=== PATIENT | male | born 1985 | race Asian ===

== ENCOUNTER 2018-05-29 00:23 | Inpatient (IN) | payer MEDICAID ==
[2018-05-29 01:09] LABS: ADD MAN DIFF? NO
[2018-05-29] MEDS: SODIUM CHLORIDE 0.9% 1L BAG IV* (01:10)
[2018-05-29 01:15] LABS: WHITE BLOOD COUNT 13.3 10^3/ul (4.8-10.8)
[2018-05-29 01:15] LABS: BASOPHIL # 0.1 10^3/ul (0.0-0.1); BASOPHILS % 0.4 % (0.0-2.0); EOSINOPHILS # 0.3 10^3/ul (0.0-0.5); EOSINOPHILS % 1.9 % (0.0-7.0); HEMATOCRIT 46.7 % (42.0-52.0); HEMOGLOBIN 13.8 g/dl (14.0-18.0); LYMPHOCYTES # 2.7 10^3/ul (0.8-2.9); MEAN CORPUSCULAR HEMOGLOBIN 25.7 pg (29.0-33.0); MEAN CORPUSCULAR HGB CONC 29.6 g/dl (32.0-37.0); MEAN PLATELET VOLUME 8.7 fl (7.4-10.4); MONOCYTES % 7.7 % (0.0-11.0); NEUTROPHIL # 9.2 10^3/ul (1.6-7.5); NEUTROPHILS % 68.7 % (39.0-77.0); NUCLEATED RED BLOOD CELLS% 0.2 /100WBC (0.0-0.0); PLATELET COUNT 271 10^3/UL (140-415); RED BLOOD COUNT 5.37 10^6/ul (4.70-6.10); RED CELL DISTRIBUTION WIDTH 14.8 % (11.5-14.5)
[2018-05-29 01:42] LABS: INR 0.94; PROTIME 12.7 Sec (11.9-14.9)
[2018-05-29 01:43] LABS: PARTIAL THROMBOPLASTIN TIME 37.8 Sec (25.0-35.0)
[2018-05-29 01:44] LABS: LACTIC ACID 1.1 mmol/L (0.5-2.0)
[2018-05-29 01:45] LABS: ALANINE AMINOTRANSFERASE 25 IU/L (13-69); ALBUMIN/GLOBULIN RATIO 1.02; ALKALINE PHOSPHATASE 121 IU/L (42-121); ANION GAP 14 (8-16); ASPARTATE AMINO TRANSFERASE 27 IU/L (15-46); BILIRUBIN,INDIRECT 0.3 mg/dl (0-1.1); BILIRUBIN,TOTAL 0.3 mg/dl (0.2-1.3); BLOOD UREA NITROGEN 15 mg/dl (7-20); CALCIUM 8.6 mg/dl (8.4-10.2); CARBON DIOXIDE 34 mmol/L (21-31); CHLORIDE 98 mmol/L (97-110); GLUCOSE 124 mg/dl (70-220); POTASSIUM 4.1 mmol/L (3.5-5.1); SODIUM 142 mmol/L (135-144); TOTAL PROTEIN 7.9 g/dl (6.1-8.1)
[2018-05-29 01:56] LABS: TROPONIN-I < 0.010 ng/ml (0.000-0.120)
[2018-05-29 03:08] LABS: LACTIC ACID 0.7 mmol/L (0.5-2.0)
[2018-05-29] MEDS: PIPER-TAZO 3.375 GM IV (PMX) 100 ML IVPB (03:43)
[2018-05-29] MEDS: ONDANSETRON 4 MG INJ IV (04:43)
[2018-05-29] MEDS: morphine 4 MG/ML VIAL IV (04:43)
[2018-05-29 06:14] LABS: LACTIC ACID 0.6 mmol/L (0.5-2.0)
[2018-05-29] MEDS ORDERED: NACL 0.9% 3 ML SYG IV (07:00)
[2018-05-29] MEDS ORDERED: ACETAMINOPHEN 325 MG TAB PO (07:00)
[2018-05-29] MEDS ORDERED: ONDANSETRON 4 MG INJ IV (07:00)
[2018-05-29] MEDS ORDERED: VANCOMYCIN IV PER PHARMACY XX (07:00)
[2018-05-29] MEDS: ENOXAPARIN 40 MG/0.4 ML SYG SC (08:20)
[2018-05-29] MEDS: CEFEPIME 1GM/50 ML (PMX) 50 ML IVPB (08:20)
[2018-05-29] MEDS: VANCOMYCIN 2 GM in SOD CHLORIDE 0.9% 500 ML IVPB ×2 (09:10→23:33)
[2018-05-29] MEDS: VANCOMYCIN 1.5 GM in SOD CHLORIDE 0.9% 250 ML IVPB (14:06)
[2018-05-29 16:34] LABS: AADO2 Arterial 31.9 mmHg (7.0-24.0); Arterial Base Excess 0.6 mmol/L (-3.0-3); Arterial Blood Gas Oxygen Sat 56.9 mmHG (95.0-98.0); Arterial COHb 3.1 % (0.0-3.0); Arterial HCO3 30.2 mmol/L (22.0-26.0); Arterial MetHb 0.2 % (0.0-1.5); Arterial Total Hemglobin 14.5 g/dl (12.0-18.0); Arterial pCO2 72.2 mmhg (35-45); MODE ROOM AIR; Site Right Radial
[2018-05-29] MEDS ORDERED: CEFTRIAXONE 2 GM/50 ML (PMX) 50 ML IVPB (21:00)
[2018-05-29] MEDS: CEFTRIAXONE 2 GM/50 ML (PMX) 50 ML IVPB (22:16)
[2018-05-30 05:49] LABS: ADD MAN DIFF? NO
[2018-05-30 05:56] LABS: WHITE BLOOD COUNT 13.8 10^3/ul (4.8-10.8)
[2018-05-30 05:56] LABS: ABNORMAL IP MESSAGE 1; BASOPHIL # 0.1 10^3/ul (0.0-0.1); BASOPHILS % 0.4 % (0.0-2.0); EOSINOPHILS # 0.1 10^3/ul (0.0-0.5); EOSINOPHILS % 0.4 % (0.0-7.0); HEMATOCRIT 46.2 % (42.0-52.0); HEMOGLOBIN 13.1 g/dl (14.0-18.0); LYMPHOCYTES # 1.6 10^3/ul (0.8-2.9); LYMPHOCYTES % 11.6 % (15.0-51.0); MEAN CORPUSCULAR HEMOGLOBIN 25.8 pg (29.0-33.0); MEAN CORPUSCULAR HGB CONC 28.4 g/dl (32.0-37.0); MEAN CORPUSCULAR VOLUME 91.1 fl (82.0-101.0); MEAN PLATELET VOLUME 8.7 fl (7.4-10.4); MONOCYTE # 1.1 10^3/ul (0.3-0.9); MONOCYTES % 7.6 % (0.0-11.0); NEUTROPHIL # 10.8 10^3/ul (1.6-7.5); NEUTROPHILS % 78.3 % (39.0-77.0); NUCLEATED RED BLOOD CELLS% 0.2 /100WBC (0.0-0.0); PLATELET COUNT 262 10^3/UL (140-415); POSITIVE DIFF @See below; RED BLOOD COUNT 5.07 10^6/ul (4.70-6.10); RED CELL DISTRIBUTION WIDTH 14.5 % (11.5-14.5)
[2018-05-30 06:57] LABS: ALANINE AMINOTRANSFERASE 19 IU/L (13-69); ALBUMIN 3.6 g/dl (3.3-4.9); ALBUMIN/GLOBULIN RATIO 0.94; ALKALINE PHOSPHATASE 105 IU/L (42-121); ANION GAP 11 (8-16); ASPARTATE AMINO TRANSFERASE 20 IU/L (15-46); BILIRUBIN,INDIRECT 0.2 mg/dl (0-1.1); BILIRUBIN,TOTAL 0.2 mg/dl (0.2-1.3); BLOOD UREA NITROGEN 8 mg/dl (7-20); CALCIUM 8.1 mg/dl (8.4-10.2); CARBON DIOXIDE 34 mmol/L (21-31); CHLORIDE 101 mmol/L (97-110); CREATININE 0.55 mg/dl (0.61-1.24); GLUCOSE 113 mg/dl (70-220); MAGNESIUM 2.1 mg/dl (1.7-2.5); PHOSPHORUS 3.4 mg/dl (2.5-4.9); POTASSIUM 4.7 mmol/L (3.5-5.1); SODIUM 141 mmol/L (135-144); TOTAL PROTEIN 7.4 g/dl (6.1-8.1)
[2018-05-30 07:56] LABS: AADO2 Arterial 77.3 mmHg (7.0-24.0); Allen Test ACCEPTAB; Arterial Base Excess 7.4 mmol/L (-3.0-3); Arterial COHb 2.1 % (0.0-3.0); Arterial Fraction of Oxyhgb 87.8 % (93.0-99.0); Arterial HCO3 39.5 mmol/L (22.0-26.0); Arterial MetHb 0.3 % (0.0-1.5); Arterial Total Hemglobin 14.2 g/dl (12.0-18.0); MODE NASAL CANNULA; Site Right Radial
[2018-05-30] MEDS: ENOXAPARIN 40 MG/0.4 ML SYG SC (08:53)
[2018-05-30] MEDS: VANCOMYCIN 2 GM in SOD CHLORIDE 0.9% 500 ML IVPB ×2 (10:09→21:22)
[2018-05-30 12:37] LABS: AADO2 Arterial 110.7 mmHg (7.0-24.0); Allen Test ACCEPTAB; Arterial Base Excess 9.7 mmol/L (-3.0-3); Arterial Blood Gas Oxygen Sat 98.3 mmHG (95.0-98.0); Arterial COHb 1.8 % (0.0-3.0); Arterial Fraction of Oxyhgb 96.2 % (93.0-99.0); Arterial HCO3 41.5 mmol/L (22.0-26.0); Arterial MetHb 0.3 % (0.0-1.5); Arterial pCO2 100.2 mmhg (35-45); Blood Gas IEPAP 15/5; Blood Gas PS 10; MODE MASK - BIPAP; Site Right Radial
[2018-05-30 15:44] LABS: AADO2 Arterial 132.2 mmHg (7.0-24.0); Allen Test ACCEPTAB; Arterial Blood Gas Oxygen Sat 97.3 mmHG (95.0-98.0); Arterial COHb 1.8 % (0.0-3.0); Arterial Fraction of Oxyhgb 95.3 % (93.0-99.0); Arterial HCO3 40.3 mmol/L (22.0-26.0); Arterial MetHb 0.3 % (0.0-1.5); Arterial Total Hemglobin 14.3 g/dl (12.0-18.0); Arterial pCO2 104.4 mmhg (35-45); Blood Gas IEPAP 20/8; Blood Gas PS 12; MODE MASK - BIPAP; Site Left Radial
[2018-05-30 18:21] LABS: AADO2 Arterial 88.4 mmHg (7.0-24.0); Allen Test ACCEPTAB; Arterial Base Excess -2.3 mmol/L (-3.0-3); Arterial Blood Gas Oxygen Sat 94.1 mmHG (95.0-98.0); Arterial COHb 1.8 % (0.0-3.0); Arterial Fraction of Oxyhgb 92.2 % (93.0-99.0); Arterial HCO3 23.9 mmol/L (22.0-26.0); Arterial MetHb 0.2 % (0.0-1.5); Arterial pCO2 46.4 mmhg (35-45); Blood Gas IEPAP 24/8; Blood Gas PS 16; MODE MASK - BIPAP; Site Right Radial
[2018-05-30 20:58] LABS: VANCOMYCIN,TROUGH 12.3 ug/ml (10.0-20.0)
[2018-05-30] MEDS: CEFTRIAXONE 2 GM/50 ML (PMX) 50 ML IVPB (22:44)
[2018-05-31] MEDS: ACETAMINOPHEN 325 MG TAB PO (01:01)
[2018-05-31 05:24] LABS: AADO2 Arterial 61.6 mmHg (7.0-24.0); Allen Test ACCEPTAB; Arterial Base Excess 10.4 mmol/L (-3.0-3); Arterial Blood Gas Oxygen Sat 93.3 mmHG (95.0-98.0); Arterial COHb 1.8 % (0.0-3.0); Arterial Fraction of Oxyhgb 91.3 % (93.0-99.0); Arterial MetHb 0.3 % (0.0-1.5); Arterial Total Hemglobin 13.7 g/dl (12.0-18.0); Arterial pCO2 71.9 mmhg (35-45); Blood Gas IEPAP 22/8; MODE MASK - BIPAP; Site Left Radial
[2018-05-31 05:39] LABS: ADD MAN DIFF? NO
[2018-05-31 05:41] LABS: ABNORMAL IP MESSAGE 1; BASOPHILS % 0.2 % (0.0-2.0); EOSINOPHILS # 0.1 10^3/ul (0.0-0.5); EOSINOPHILS % 0.7 % (0.0-7.0); HEMATOCRIT 42.6 % (42.0-52.0); HEMOGLOBIN 12.2 g/dl (14.0-18.0); LYMPHOCYTES # 1.8 10^3/ul (0.8-2.9); LYMPHOCYTES % 11.7 % (15.0-51.0); MEAN CORPUSCULAR HEMOGLOBIN 25.3 pg (29.0-33.0); MEAN CORPUSCULAR HGB CONC 28.6 g/dl (32.0-37.0); MEAN CORPUSCULAR VOLUME 88.2 fl (82.0-101.0); MEAN PLATELET VOLUME 8.9 fl (7.4-10.4); MONOCYTE # 1.4 10^3/ul (0.3-0.9); MONOCYTES % 8.7 % (0.0-11.0); NEUTROPHIL # 12.2 10^3/ul (1.6-7.5); NEUTROPHILS % 78.2 % (39.0-77.0); PLATELET COUNT 227 10^3/UL (140-415); POSITIVE DIFF @See below; RED BLOOD COUNT 4.83 10^6/ul (4.70-6.10); RED CELL DISTRIBUTION WIDTH 14.5 % (11.5-14.5)
[2018-05-31 05:41] LABS: WHITE BLOOD COUNT 15.6 10^3/ul (4.8-10.8)
[2018-05-31 06:19] LABS: ANION GAP 7 (8-16); BLOOD UREA NITROGEN 10 mg/dl (7-20); CALCIUM 8.4 mg/dl (8.4-10.2); CARBON DIOXIDE 39 mmol/L (21-31); CHLORIDE 98 mmol/L (97-110); CREATININE 0.56 mg/dl (0.61-1.24); GLUCOSE 96 mg/dl (70-220); MAGNESIUM 1.9 mg/dl (1.7-2.5); PHOSPHORUS 2.3 mg/dl (2.5-4.9); SODIUM 140 mmol/L (135-144)
[2018-05-31] MEDS ORDERED: POTASSIUM PHOSPHATE 30 MM in SOD CHLORIDE 0.9% 250 ML IVPB (08:30)
[2018-05-31] MEDS ORDERED: NEUTRA-PHOS 250 MG PACKET PO ×2 (09:00)
[2018-05-31] MEDS: TRIMETHOPRIM/SULFAMETHOX (DS) TAB PO (10:41)
[2018-05-31] MEDS: NEUTRA-PHOS 250 MG PACKET PO ×3 (10:41→18:05)
[2018-05-31] MEDS: ENOXAPARIN 40 MG/0.4 ML SYG SC (10:52)
[2018-06-01 05:08] LABS: ADD MAN DIFF? NO
[2018-06-01 05:13] LABS: WHITE BLOOD COUNT 15.2 10^3/ul (4.8-10.8)
[2018-06-01 05:13] LABS: BASOPHIL # 0.1 10^3/ul (0.0-0.1); BASOPHILS % 0.4 % (0.0-2.0); EOSINOPHILS # 0.2 10^3/ul (0.0-0.5); EOSINOPHILS % 1.5 % (0.0-7.0); HEMATOCRIT 43.4 % (42.0-52.0); HEMOGLOBIN 12.8 g/dl (14.0-18.0); LYMPHOCYTES # 1.6 10^3/ul (0.8-2.9); LYMPHOCYTES % 10.5 % (15.0-51.0); MEAN CORPUSCULAR HEMOGLOBIN 25.4 pg (29.0-33.0); MEAN CORPUSCULAR HGB CONC 29.5 g/dl (32.0-37.0); MEAN CORPUSCULAR VOLUME 86.3 fl (82.0-101.0); MEAN PLATELET VOLUME 8.6 fl (7.4-10.4); MONOCYTES % 6.3 % (0.0-11.0); NEUTROPHIL # 12.3 10^3/ul (1.6-7.5); NEUTROPHILS % 80.4 % (39.0-77.0); PLATELET COUNT 219 10^3/UL (140-415); RED BLOOD COUNT 5.03 10^6/ul (4.70-6.10); RED CELL DISTRIBUTION WIDTH 14.6 % (11.5-14.5)
[2018-06-01 05:22] LABS: AADO2 Arterial 63.1 mmHg (7.0-24.0); Allen Test ACCEPTAB; Arterial Blood Gas Oxygen Sat 94.4 mmHG (95.0-98.0); Arterial COHb 1.5 % (0.0-3.0); Arterial Fraction of Oxyhgb 92.7 % (93.0-99.0); Arterial HCO3 39.8 mmol/L (22.0-26.0); Arterial MetHb 0.3 % (0.0-1.5); Arterial pCO2 66.1 mmhg (35-45); MODE NASAL CANNULA; Site Left Radial
[2018-06-01 05:40] LABS: ANION GAP 13 (8-16); BLOOD UREA NITROGEN 8 mg/dl (7-20); CALCIUM 8.5 mg/dl (8.4-10.2); CARBON DIOXIDE 35 mmol/L (21-31); CHLORIDE 97 mmol/L (97-110); CREATININE 0.58 mg/dl (0.61-1.24); GLUCOSE 99 mg/dl (70-220); POTASSIUM 3.7 mmol/L (3.5-5.1); SODIUM 141 mmol/L (135-144)
[2018-06-01 05:42] LABS: PHOSPHORUS 3.2 mg/dl (2.5-4.9)
[2018-06-01 05:42] LABS: MAGNESIUM 1.8 mg/dl (1.7-2.5)
[2018-06-01] MEDS: PANTOPRAZOLE 40 MG INJ IV (06:04)
[2018-06-01] MEDS: ENOXAPARIN 40 MG/0.4 ML SYG SC (09:48)
[2018-06-01] MEDS ORDERED: IBUPROFEN 400 MG TAB PO (14:30)
[2018-06-02] MEDS: PANTOPRAZOLE 40 MG INJ IV (06:23)
[2018-06-02] MEDS: ENOXAPARIN 40 MG/0.4 ML SYG SC (08:26)
[2018-06-02 11:07] LABS: AADO2 Arterial 39.1 mmHg (7.0-24.0); Allen Test ACCEPTAB; Arterial Base Excess 8.5 mmol/L (-3.0-3); Arterial Blood Gas Oxygen Sat 90.5 mmHG (95.0-98.0); Arterial COHb 1.6 % (0.0-3.0); Arterial Fraction of Oxyhgb 88.9 % (93.0-99.0); Arterial HCO3 35.6 mmol/L (22.0-26.0); Arterial MetHb 0.2 % (0.0-1.5); Arterial Total Hemglobin 14.4 g/dl (12.0-18.0); Arterial pCO2 59.4 mmhg (35-45); MODE NASAL CANNULA; Site Right Radial
[2018-06-03 06:12] LABS: ADD MAN DIFF? NO
[2018-06-03 06:23] LABS: BASOPHIL # 0.1 10^3/ul (0.0-0.1); BASOPHILS % 0.4 % (0.0-2.0); EOSINOPHILS # 0.3 10^3/ul (0.0-0.5); EOSINOPHILS % 2.2 % (0.0-7.0); HEMATOCRIT 46.7 % (42.0-52.0); HEMOGLOBIN 13.7 g/dl (14.0-18.0); LYMPHOCYTES % 17.5 % (15.0-51.0); MEAN CORPUSCULAR HEMOGLOBIN 25.4 pg (29.0-33.0); MEAN CORPUSCULAR HGB CONC 29.3 g/dl (32.0-37.0); MEAN CORPUSCULAR VOLUME 86.6 fl (82.0-101.0); MEAN PLATELET VOLUME 8.9 fl (7.4-10.4); MONOCYTE # 0.8 10^3/ul (0.3-0.9); MONOCYTES % 7.3 % (0.0-11.0); NEUTROPHIL # 8.3 10^3/ul (1.6-7.5); NEUTROPHILS % 71.7 % (39.0-77.0); PLATELET COUNT 256 10^3/UL (140-415); RED BLOOD COUNT 5.39 10^6/ul (4.70-6.10); RED CELL DISTRIBUTION WIDTH 14.8 % (11.5-14.5)
[2018-06-03 06:23] LABS: WHITE BLOOD COUNT 11.5 10^3/ul (4.8-10.8)
[2018-06-03 06:34] LABS: ALBUMIN 3.7 g/dl (3.3-4.9); ANION GAP 14 (8-16); BLOOD UREA NITROGEN 12 mg/dl (7-20); CALCIUM 8.8 mg/dl (8.4-10.2); CARBON DIOXIDE 35 mmol/L (21-31); CHLORIDE 97 mmol/L (97-110); CREATININE 0.66 mg/dl (0.61-1.24); GLUCOSE 101 mg/dl (70-220); PHOSPHORUS 4.8 mg/dl (2.5-4.9); POTASSIUM 3.9 mmol/L (3.5-5.1); SODIUM 142 mmol/L (135-144)
[2018-06-03] MEDS: PANTOPRAZOLE 40 MG INJ IV (06:57)
[2018-06-03] MEDS: ENOXAPARIN 40 MG/0.4 ML SYG SC (09:12)
== END 2018-06-03 12:48 | disposition home or self-care (01) | DRG 602 ==
LOC: 6WM 06-01 12:47 → E/R 00:23 → 6WM 06-01 16:29 → REC 05-30 13:36 → 6WM 05-30 14:30 → ICU 05-30 15:42 → MS3 03:26 → 6WM 18:20
PROVIDERS: Internal Medicine
PROC: 5A09357 Assistance with Respiratory Ventilation, Less than 24 Consecutive Hours, Continuous Positive Airway Pressure (ICD-10-PCS; principal; 2018-05-30)
DX: L03.115 Cellulitis of right lower limb (principal); J96.20 Acute and chronic respiratory failure, unspecified whether with hypoxia or hypercapnia; E66.2 Morbid (severe) obesity with alveolar hypoventilation; Z68.43 Body mass index [BMI] 50.0-59.9, adult; E87.2 Acidosis; E87.4 Mixed disorder of acid-base balance; G47.33 Obstructive sleep apnea (adult) (pediatric); Z72.0 Tobacco use; I80.8 Phlebitis and thrombophlebitis of other sites
CPT/HCPCS: 36415; 36600; 71045; 80048; 80053; 80069; 80202; 82803; 83605; 83735; 84100; 84484; 85025; 85610; 85730; 87040; 93005; 94002; 94660; 94770; 99217; 99285-25; G0378

== ENCOUNTER 2018-08-11 23:58 | Emergency (ER) | payer SELFPAY, MEDICAID ==
[2018-08-12] MEDS: SODIUM CHLORIDE 0.9% 1L BAG IV* (01:43)
== END 2018-08-12 01:41 | disposition left against medical advice (07) ==
LOC: E/R 23:58
DX: J96.00 Acute respiratory failure, unspecified whether with hypoxia or hypercapnia (principal); L03.116 Cellulitis of left lower limb; F17.210 Nicotine dependence, cigarettes, uncomplicated; E66.9 Obesity, unspecified; M79.605 Pain in left leg; Z68.44 Body mass index [BMI] 60.0-69.9, adult
CPT/HCPCS: 99283; 99283-25

== ENCOUNTER 2018-10-08 00:26 | Inpatient (IN) | payer MEDICAID ==
[2018-10-08] MEDS: CLINDAMYCIN 900 MG/D5W (PMX) 50 ML IVPB (02:27)
[2018-10-08 02:29] LABS: ADD MAN DIFF? NO
[2018-10-08 02:31] LABS: WHITE BLOOD COUNT 9.9 10^3/ul (4.8-10.8)
[2018-10-08 02:31] LABS: ABNORMAL IP MESSAGE 1; BASOPHIL # 0.1 10^3/ul (0.0-0.1); BASOPHILS % 0.5 % (0.0-2.0); EOSINOPHILS # 0.3 10^3/ul (0.0-0.5); EOSINOPHILS % 3.2 % (0.0-7.0); HEMATOCRIT 46.9 % (42.0-52.0); HEMOGLOBIN 12.7 g/dl (14.0-18.0); LYMPHOCYTES # 1.9 10^3/ul (0.8-2.9); LYMPHOCYTES % 19.3 % (15.0-51.0); MEAN CORPUSCULAR HEMOGLOBIN 22.5 pg (29.0-33.0); MEAN CORPUSCULAR HGB CONC 27.1 g/dl (32.0-37.0); MEAN CORPUSCULAR VOLUME 83.2 fl (82.0-101.0); MEAN PLATELET VOLUME 9.3 fl (7.4-10.4); MONOCYTE # 0.6 10^3/ul (0.3-0.9); MONOCYTES % 6.5 % (0.0-11.0); NEUTROPHIL # 6.9 10^3/ul (1.6-7.5); NEUTROPHILS % 69.9 % (39.0-77.0); NUCLEATED RED BLOOD CELLS% 0.2 /100WBC (0.0-0.0); PLATELET COUNT 255 10^3/UL (140-415); POSITIVE DIFF @See below; RED BLOOD COUNT 5.64 10^6/ul (4.70-6.10); RED CELL DISTRIBUTION WIDTH 17.2 % (11.5-14.5)
[2018-10-08 02:39] LABS: INR 1.01; PROTIME 13.4 Sec (11.9-14.9)
[2018-10-08 02:51] LABS: ALANINE AMINOTRANSFERASE 9 IU/L (13-69); ALBUMIN 3.8 g/dl (3.3-4.9); ALBUMIN/GLOBULIN RATIO 0.69; ALKALINE PHOSPHATASE 126 IU/L (42-121); ANION GAP 5 (5-13); ASPARTATE AMINO TRANSFERASE 65 IU/L (15-46); BILIRUBIN,INDIRECT 0.7 mg/dl (0-1.1); BILIRUBIN,TOTAL 0.7 mg/dl (0.2-1.3); BLOOD UREA NITROGEN 15 mg/dl (7-20); CALCIUM 8.4 mg/dl (8.4-10.2); CARBON DIOXIDE 37 mmol/L (21-31); CHLORIDE 98 mmol/L (97-110); CREATININE 0.77 mg/dl (0.61-1.24); Estimated GFR > 60 mL/min (>60); GLUCOSE 111 mg/dl (70-220); POTASSIUM 5.2 mmol/L (3.5-5.1); SODIUM 140 mmol/L (135-144); TOTAL PROTEIN 9.3 g/dl (6.1-8.1)
[2018-10-08 03:01] LABS: B-TYPE NATRIURETIC PEPTIDE 77 PG/ML (0-125); TROPONIN-I 0.016 ng/ml (0.000-0.120)
[2018-10-08] MEDS ORDERED: NACL 0.9% 3 ML SYG IV (03:30)
[2018-10-08] MEDS ORDERED: ONDANSETRON 4 MG INJ IV (03:30)
[2018-10-08] MEDS ORDERED: ACETAMINOPHEN 325 MG TAB PO (03:30)
[2018-10-08] MEDS ORDERED: FUROSEMIDE 20 MG INJ IV ×2 (03:30)
[2018-10-08 03:46] LABS: AADO2 Arterial 51.1 mmHg (7.0-24.0); Allen Test ACCEPTAB; Arterial Base Excess 8.1 mmol/L (-3.0-3); Arterial Blood Gas Oxygen Sat 94.3 mmHG (95.0-98.0); Arterial Fraction of Oxyhgb 89.3 % (93.0-99.0); Arterial HCO3 38.1 mmol/L (22.0-26.0); Arterial MetHb 0.3 % (0.0-1.5); Arterial pCO2 81.9 mmhg (35-45); MODE NASAL CANNULA; Site Left Radial
[2018-10-08 03:46] LABS: C-REACTIVE PROTEIN 2.5 mg/dl (0.0-0.9)
[2018-10-08] MEDS: FUROSEMIDE 40 MG INJ IV ×3 (05:07→14:28)
[2018-10-08 05:59] LABS: ERYTHROCYTE SEDIMENTATION RATE 35 mm/Hr (0-15)
[2018-10-08 06:27] LABS: CHOLESTEROL 95 mg/dl (100-200)
[2018-10-08 06:27] LABS: CHOL/HDL RATIO 5.9 RATIO; HDL CHOLESTEROL 16 mg/dl (28-63); LDL CHOLESTEROL,CALCULATED 68 mg/dl; TRIGLYCERIDES 56 mg/dl (0-149)
[2018-10-08 06:28] LABS: LACTIC ACID 0.8 mmol/L (0.5-2.0)
[2018-10-08 06:28] LABS: MAGNESIUM 2.2 mg/dl (1.7-2.5)
[2018-10-08] MEDS ORDERED: VANCOMYCIN IV PER PHARMACY XX (06:30)
[2018-10-08] MEDS ORDERED: VANCOMYCIN 2 GM in SOD CHLORIDE 0.9% 500 ML IVPB (09:00)
[2018-10-08 09:13] LABS: AADO2 Arterial 41.1 mmHg (7.0-24.0); Allen Test ACCEPTAB; Arterial Base Excess 9.6 mmol/L (-3.0-3); Arterial Blood Gas Oxygen Sat 91.9 mmHG (95.0-98.0); Arterial COHb 4.5 % (0.0-3.0); Arterial Fraction of Oxyhgb 87.4 % (93.0-99.0); Arterial HCO3 40.4 mmol/L (22.0-26.0); Arterial MetHb 0.4 % (0.0-1.5); Arterial pCO2 89.5 mmhg (35-45); Blood Gas IEPAP 18/6; Blood Gas PS 12; MODE MASK - BIPAP; Site Left Radial
[2018-10-08] MEDS: NICOTINE (14 MG/24 HR) PATCH TRANSDERM (10:43)
[2018-10-08] MEDS: AMOXICILLIN/CLAV 875 MG TAB PO ×2 (10:44→20:52)
[2018-10-08] MEDS: CLOTRIMAZOLE 1% 30 GM CR TOP ×2 (10:44→20:52)
[2018-10-08] MEDS: ENOXAPARIN 40 MG/0.4 ML SYG SC (10:50)
[2018-10-08 22:15] LABS: AADO2 Arterial 90.6 mmHg (7.0-24.0); Allen Test ACCEPTAB; Arterial Base Excess 11.8 mmol/L (-3.0-3); Arterial Blood Gas Oxygen Sat 96.1 mmHG (95.0-98.0); Arterial COHb 3.1 % (0.0-3.0); Arterial Fraction of Oxyhgb 92.7 % (93.0-99.0); Arterial HCO3 42.4 mmol/L (22.0-26.0); Arterial MetHb 0.4 % (0.0-1.5); Arterial pCO2 90.5 mmhg (35-45); Blood Gas IEPAP 22/6; Blood Gas PS 16; MODE MASK - BIPAP; Site Right Radial
[2018-10-09 04:58] LABS: Allen Test ACCEPTAB; Arterial Base Excess 11.8 mmol/L (-3.0-3); Arterial Blood Gas Oxygen Sat 93.1 mmHG (95.0-98.0); Arterial COHb 2.8 % (0.0-3.0); Arterial Fraction of Oxyhgb 90.2 % (93.0-99.0); Arterial HCO3 43.2 mmol/L (22.0-26.0); Arterial MetHb 0.3 % (0.0-1.5); Arterial pCO2 97.9 mmhg (35-45); Blood Gas IEPAP 22/6; MODE MASK - BIPAP; Site Right Radial
[2018-10-09 06:38] LABS: ADD MAN DIFF? NO
[2018-10-09 06:40] LABS: ABNORMAL IP MESSAGE 1; BASOPHIL # 0.1 10^3/ul (0.0-0.1); BASOPHILS % 0.7 % (0.0-2.0); EOSINOPHILS # 0.2 10^3/ul (0.0-0.5); EOSINOPHILS % 2.3 % (0.0-7.0); HEMOGLOBIN 12.3 g/dl (14.0-18.0); LYMPHOCYTES # 1.8 10^3/ul (0.8-2.9); LYMPHOCYTES % 17.8 % (15.0-51.0); MEAN CORPUSCULAR HEMOGLOBIN 22.9 pg (29.0-33.0); MEAN CORPUSCULAR HGB CONC 27.3 g/dl (32.0-37.0); MEAN CORPUSCULAR VOLUME 83.6 fl (82.0-101.0); MEAN PLATELET VOLUME 8.8 fl (7.4-10.4); MONOCYTE # 0.9 10^3/ul (0.3-0.9); MONOCYTES % 8.4 % (0.0-11.0); NEUTROPHIL # 7.2 10^3/ul (1.6-7.5); NEUTROPHILS % 70.2 % (39.0-77.0); PLATELET COUNT 263 10^3/UL (140-415); POSITIVE DIFF @See below; RED BLOOD COUNT 5.38 10^6/ul (4.70-6.10); RED CELL DISTRIBUTION WIDTH 17.2 % (11.5-14.5)
[2018-10-09 06:40] LABS: WHITE BLOOD COUNT 10.3 10^3/ul (4.8-10.8)
[2018-10-09 07:10] LABS: ALANINE AMINOTRANSFERASE 17 IU/L (13-69); ALBUMIN 3.6 g/dl (3.3-4.9); ALKALINE PHOSPHATASE 112 IU/L (42-121); ASPARTATE AMINO TRANSFERASE 22 IU/L (15-46); BILIRUBIN,INDIRECT 0.5 mg/dl (0-1.1); BILIRUBIN,TOTAL 0.5 mg/dl (0.2-1.3); BLOOD UREA NITROGEN 11 mg/dl (7-20); CALCIUM 8.5 mg/dl (8.4-10.2); CHLORIDE 93 mmol/L (97-110); CREATININE 0.67 mg/dl (0.61-1.24); Estimated GFR > 60 mL/min (>60); GLUCOSE 92 mg/dl (70-220); POTASSIUM 4.3 mmol/L (3.5-5.1); SODIUM 142 mmol/L (135-144); TOTAL PROTEIN 8.1 g/dl (6.1-8.1)
[2018-10-09 07:17] LABS: ANION GAP 10 (5-13)
[2018-10-09 07:19] LABS: CARBON DIOXIDE 39 mmol/L (21-31)
[2018-10-09 08:30] LABS: AADO2 Arterial 116.2 mmHg (7.0-24.0); Allen Test ACCEPTAB; Arterial Base Excess 12.4 mmol/L (-3.0-3); Arterial Blood Gas Oxygen Sat 91.2 mmHG (95.0-98.0); Arterial COHb 2.6 % (0.0-3.0); Arterial Fraction of Oxyhgb 88.6 % (93.0-99.0); Arterial HCO3 42.9 mmol/L (22.0-26.0); Arterial MetHb 0.3 % (0.0-1.5); Arterial pCO2 89.8 mmhg (35-45); Blood Gas IEPAP 25/6; MODE MASK - BIPAP; Site Right Radial
[2018-10-09] MEDS: CLOTRIMAZOLE 1% 30 GM CR TOP ×2 (09:00→20:46)
[2018-10-09] MEDS ORDERED: FUROSEMIDE 40 MG INJ IV (09:00)
[2018-10-09] MEDS ORDERED: ALBUTEROL/IPRATROPIUM (NEB) 3 ML AMP HHN (10:00)
[2018-10-09] MEDS: NICOTINE (14 MG/24 HR) PATCH TRANSDERM (10:08)
[2018-10-09] MEDS: ENOXAPARIN 40 MG/0.4 ML SYG SC (10:17)
[2018-10-09] MEDS: PIPER-TAZO 3.375 GM IV (PMX) 100 ML IVPB ×2 (12:00→18:33)
[2018-10-10] MEDS: PIPER-TAZO 3.375 GM IV (PMX) 100 ML IVPB ×3 (00:14→11:31)
[2018-10-10 06:01] LABS: ADD MAN DIFF? NO
[2018-10-10 06:04] LABS: WHITE BLOOD COUNT 10.6 10^3/ul (4.8-10.8)
[2018-10-10 06:04] LABS: ABNORMAL IP MESSAGE 1; BASOPHILS % 0.4 % (0.0-2.0); EOSINOPHILS # 0.2 10^3/ul (0.0-0.5); HEMATOCRIT 46.1 % (42.0-52.0); HEMOGLOBIN 12.3 g/dl (14.0-18.0); LYMPHOCYTES # 1.9 10^3/ul (0.8-2.9); LYMPHOCYTES % 18.3 % (15.0-51.0); MEAN CORPUSCULAR HEMOGLOBIN 22.5 pg (29.0-33.0); MEAN CORPUSCULAR HGB CONC 26.7 g/dl (32.0-37.0); MEAN CORPUSCULAR VOLUME 84.4 fl (82.0-101.0); MEAN PLATELET VOLUME 8.5 fl (7.4-10.4); MONOCYTE # 0.8 10^3/ul (0.3-0.9); MONOCYTES % 7.4 % (0.0-11.0); NEUTROPHIL # 7.6 10^3/ul (1.6-7.5); NEUTROPHILS % 71.3 % (39.0-77.0); PLATELET COUNT 270 10^3/UL (140-415); POSITIVE DIFF @See below; RED BLOOD COUNT 5.46 10^6/ul (4.70-6.10); RED CELL DISTRIBUTION WIDTH 16.7 % (11.5-14.5)
[2018-10-10 06:37] LABS: BLOOD UREA NITROGEN 11 mg/dl (7-20); CALCIUM 8.5 mg/dl (8.4-10.2); CHLORIDE 93 mmol/L (97-110); CREATININE 0.62 mg/dl (0.61-1.24); Estimated GFR > 60 mL/min (>60); GLUCOSE 99 mg/dl (70-220); POTASSIUM 4.5 mmol/L (3.5-5.1); SODIUM 140 mmol/L (135-144)
[2018-10-10 06:46] LABS: ANION GAP 8 (5-13)
[2018-10-10 06:50] LABS: CARBON DIOXIDE 39 mmol/L (21-31)
[2018-10-10] MEDS: CLOTRIMAZOLE 1% 30 GM CR TOP (08:56)
[2018-10-10] MEDS: FUROSEMIDE 40 MG TAB PO (08:56)
[2018-10-10] MEDS: NICOTINE (14 MG/24 HR) PATCH TRANSDERM (08:57)
[2018-10-10] MEDS: ENOXAPARIN 40 MG/0.4 ML SYG SC (09:05)
== END 2018-10-10 13:28 | disposition home or self-care (01) | DRG 602 ==
LOC: E/R 00:26 → TEL 03:19
PROC: 4A133R1 Monitoring of Arterial Saturation, Peripheral, Percutaneous Approach (ICD-10-PCS; principal; 2018-10-08)
DX: L03.116 Cellulitis of left lower limb (principal); J96.22 Acute and chronic respiratory failure with hypercapnia; J96.21 Acute and chronic respiratory failure with hypoxia; Z68.44 Body mass index [BMI] 60.0-69.9, adult; E66.2 Morbid (severe) obesity with alveolar hypoventilation; L03.115 Cellulitis of right lower limb; F17.210 Nicotine dependence, cigarettes, uncomplicated; J44.9 Chronic obstructive pulmonary disease, unspecified; F17.200 Nicotine dependence, unspecified, uncomplicated; I87.8 Other specified disorders of veins; L98.9 Disorder of the skin and subcutaneous tissue, unspecified; I27.81 Cor pulmonale (chronic); I27.20 Pulmonary hypertension, unspecified
CPT/HCPCS: 36415; 36600; 71045; 80048; 80053; 80061; 82803; 83036; 83605; 83735; 83880; 84443; 84484; 85025; 85610; 85651; 85730; 86140; 87040; 93005; 93306; 93970; 94660; 96365; 99285-25

== ENCOUNTER 2018-10-31 14:16 | Inpatient (IN) | payer MEDICAID ==
[2018-10-31] MEDS: IPRATROPIUM (NEB) 0.5 MG/2.5 ML AMP INH (15:05)
[2018-10-31] MEDS: ALBUTEROL 0.5% (NEB) 2.5 MG/0.5 ML AMP INH (15:05)
[2018-10-31 15:24] LABS: Allen Test ACCEPTAB; Arterial Base Excess 7.6 mmol/L (-3.0-3); Arterial Blood Gas Oxygen Sat 90.3 mmHG (95.0-98.0); Arterial COHb 2.6 % (0.0-3.0); Arterial Fraction of Oxyhgb 87.8 % (93.0-99.0); Arterial HCO3 39.7 mmol/L (22.0-26.0); Arterial MetHb 0.2 % (0.0-1.5); Arterial pCO2 102.4 mmhg (35-45); MODE ROOM AIR; Site Right Radial
[2018-10-31] MEDS: METHYLPREDNISOLONE 125 MG INJ IV (15:36)
[2018-10-31] MEDS: PIPER-TAZO 3.375 GM IV (PMX) 100 ML IVPB (15:53)
[2018-10-31 15:55] LABS: ADD MAN DIFF? NO
[2018-10-31 16:03] LABS: WHITE BLOOD COUNT 16.1 10^3/ul (4.8-10.8)
[2018-10-31 16:03] LABS: ABNORMAL IP MESSAGE 1; BASOPHIL # 0.1 10^3/ul (0.0-0.1); BASOPHILS % 0.4 % (0.0-2.0); EOSINOPHILS # 0.2 10^3/ul (0.0-0.5); EOSINOPHILS % 1.2 % (0.0-7.0); LYMPHOCYTES # 2.2 10^3/ul (0.8-2.9); LYMPHOCYTES % 13.3 % (15.0-51.0); MEAN CORPUSCULAR HEMOGLOBIN 22.6 pg (29.0-33.0); MEAN CORPUSCULAR HGB CONC 27.1 g/dl (32.0-37.0); MEAN CORPUSCULAR VOLUME 83.5 fl (82.0-101.0); MEAN PLATELET VOLUME 8.7 fl (7.4-10.4); MONOCYTE # 1.3 10^3/ul (0.3-0.9); MONOCYTES % 8.2 % (0.0-11.0); NEUTROPHIL # 12.2 10^3/ul (1.6-7.5); NEUTROPHILS % 75.5 % (39.0-77.0); NUCLEATED RED BLOOD CELLS # 0.3 10^3/ul (0.0-0.0); NUCLEATED RED BLOOD CELLS% 1.5 /100WBC (0.0-0.0); PLATELET COUNT 298 10^3/UL (140-415); POSITIVE DIFF @See below; RED BLOOD COUNT 5.75 10^6/ul (4.70-6.10); RED CELL DISTRIBUTION WIDTH 18.6 % (11.5-14.5)
[2018-10-31 16:17] LABS: INR 1.15; PROTIME 14.8 Sec (11.9-14.9); PT RATIO 1.2
[2018-10-31 16:18] LABS: PARTIAL THROMBOPLASTIN TIME 37.9 Sec (23.0-35.0)
[2018-10-31 16:22] LABS: HEMOGLOBIN A1C 6.1 % (0-5.9)
[2018-10-31 16:22] LABS: ALANINE AMINOTRANSFERASE 16 IU/L (13-69); ALBUMIN 4.3 g/dl (3.3-4.9); ALBUMIN/GLOBULIN RATIO 0.75; ALKALINE PHOSPHATASE 135 IU/L (42-121); AMYLASE 82 U/L (11-123); ASPARTATE AMINO TRANSFERASE 24 IU/L (15-46); BILIRUBIN,INDIRECT 0.5 mg/dl (0-1.1); BILIRUBIN,TOTAL 0.5 mg/dl (0.2-1.3); BLOOD UREA NITROGEN 15 mg/dl (7-20); CALCIUM 8.9 mg/dl (8.4-10.2); CHLORIDE 94 mmol/L (97-110); CREATININE 0.83 mg/dl (0.61-1.24); Estimated GFR > 60 mL/min (>60); GLUCOSE 117 mg/dl (70-220); LIPASE 38 U/L (23-300); POTASSIUM 4.4 mmol/L (3.5-5.1); SODIUM 139 mmol/L (135-144)
[2018-10-31 16:31] LABS: ANION GAP 10 (5-13)
[2018-10-31 16:33] LABS: CARBON DIOXIDE 35 mmol/L (21-31)
[2018-10-31 16:34] LABS: TROPONIN-I < 0.012 ng/ml (0.000-0.120)
[2018-10-31] MEDS ORDERED: ONDANSETRON 4 MG INJ IV (17:30)
[2018-10-31] MEDS ORDERED: NACL 0.9% 3 ML SYG IV (17:30)
[2018-10-31] MEDS: VANCOMYCIN 1 GM (PMX) 250 ML IVPB (17:47)
[2018-10-31] MEDS ORDERED: AZITHROMYCIN 500MG/NS (PMX) 250 ML IVPB (18:00)
[2018-10-31 18:29] LABS: AADO2 Arterial 245.7 mmHg (7.0-24.0); Allen Test ACCEPTAB; Arterial Blood Gas Oxygen Sat 94.9 mmHG (95.0-98.0); Arterial COHb 2.2 % (0.0-3.0); Arterial Fraction of Oxyhgb 92.4 % (93.0-99.0); Arterial HCO3 32.7 mmol/L (22.0-26.0); Arterial MetHb 0.4 % (0.0-1.5); Arterial pCO2 84.4 mmhg (35-45); Blood Gas IEPAP 20/8; Blood Gas PS 12; MODE MASK - BIPAP; Site Right Radial
[2018-10-31] MEDS ORDERED: CEFTRIAXONE 1 GM/50 ML (PMX) 50 ML IVPB (18:30)
[2018-10-31] MEDS: AZITHROMYCIN 500MG/NS (PMX) 250 ML IVPB (20:31)
[2018-10-31] MEDS: CEFTRIAXONE 1 GM/50 ML (PMX) 50 ML IVPB (22:13)
[2018-10-31 22:45] LABS: AADO2 Arterial 305.8 mmHg (7.0-24.0); Arterial Base Excess 3.1 mmol/L (-3.0-3); Arterial COHb 1.7 % (0.0-3.0); Arterial HCO3 34.6 mmol/L (22.0-26.0); Arterial MetHb 0.4 % (0.0-1.5); Arterial pCO2 94.6 mmhg (35-45); MODE HFNC; Site Right Radial
[2018-10-31] MEDS ORDERED: LORAZEPAM 2 MG INJ (23:06)
[2018-10-31] MEDS: LORAZEPAM 2 MG INJ IV (23:11)
[2018-10-31] MEDS: HALOPERIDOL 5 MG INJ IM ×2 (23:20→23:56)
[2018-11-01] MEDS ORDERED: HYDROmorphONE 1 MG/ML SYG IV
[2018-11-01] MEDS: LORAZEPAM 2 MG INJ IV (00:01)
[2018-11-01] MEDS: PIPER-TAZO 3.375 GM IV (PMX) 100 ML IVPB ×4 (00:26→18:24)
[2018-11-01] MEDS ORDERED: VANCOMYCIN IV PER PHARMACY XX (01:00)
[2018-11-01 01:35] LABS: Arterial Base Excess 4.4 mmol/L (-3.0-3); Arterial Blood Gas Oxygen Sat 90.7 mmHG (95.0-98.0); Arterial COHb 1.5 % (0.0-3.0); Arterial Fraction of Oxyhgb 89.1 % (93.0-99.0); Arterial HCO3 36.5 mmol/L (22.0-26.0); Arterial MetHb 0.3 % (0.0-1.5); Arterial pCO2 101.8 mmhg (35-45); Blood Gas IEPAP 20/8; MODE MASK - BIPAP; Site Right Radial
[2018-11-01] MEDS: VANCOMYCIN HCL 2 GM in SOD CHLORIDE 0.9% 500 ML IVPB ×2 (03:37→14:44)
[2018-11-01 04:05] LABS: AADO2 Arterial 235.5 mmHg (7.0-24.0); Arterial Base Excess 5.5 mmol/L (-3.0-3); Arterial Blood Gas Oxygen Sat 92.2 mmHG (95.0-98.0); Arterial COHb 1.5 % (0.0-3.0); Arterial Fraction of Oxyhgb 90.5 % (93.0-99.0); Arterial HCO3 37.8 mmol/L (22.0-26.0); Arterial MetHb 0.3 % (0.0-1.5); Blood Gas IEPAP 20/8; MODE MASK - BIPAP; Site Right Radial
[2018-11-01 04:51] LABS: ADD MAN DIFF? NO
[2018-11-01 04:54] LABS: WHITE BLOOD COUNT 17.7 10^3/ul (4.8-10.8)
[2018-11-01 04:54] LABS: ABNORMAL IP MESSAGE 1; BASOPHILS % 0.2 % (0.0-2.0); HEMATOCRIT 44.4 % (42.0-52.0); HEMOGLOBIN 11.8 g/dl (14.0-18.0); LYMPHOCYTES % 5.6 % (15.0-51.0); MEAN CORPUSCULAR HEMOGLOBIN 22.6 pg (29.0-33.0); MEAN CORPUSCULAR HGB CONC 26.6 g/dl (32.0-37.0); MEAN CORPUSCULAR VOLUME 85.1 fl (82.0-101.0); MEAN PLATELET VOLUME 8.6 fl (7.4-10.4); MONOCYTE # 0.6 10^3/ul (0.3-0.9); MONOCYTES % 3.6 % (0.0-11.0); NEUTROPHIL # 15.6 10^3/ul (1.6-7.5); NEUTROPHILS % 88.1 % (39.0-77.0); NUCLEATED RED BLOOD CELLS # 0.3 10^3/ul (0.0-0.0); NUCLEATED RED BLOOD CELLS% 1.6 /100WBC (0.0-0.0); PLATELET COUNT 275 10^3/UL (140-415); POSITIVE DIFF @See below; RED BLOOD COUNT 5.22 10^6/ul (4.70-6.10); RED CELL DISTRIBUTION WIDTH 17.2 % (11.5-14.5)
[2018-11-01 05:04] LABS: ADD UMIC YES; UR ASCORBIC ACID NEGATIVE (NEGATIVE); UR BILIRUBIN (Dip) NEGATIVE (NEGATIVE); UR BLOOD (Dip) 1+ mg/dL (NEGATIVE); UR CLARITY SLIGHTLY CLOUDY (CLEAR); UR COLOR AMBER (YELLOW); UR GLUCOSE (Dip) NEGATIVE (NEGATIVE); UR KETONES (Dip) NEGATIVE (NEGATIVE); UR LEUKOCYTE ESTERASE (Dip) NEGATIVE Leu/ul (NEGATIVE); UR MUCUS FEW /HPF (NONE SEEN); UR NITRITE (Dip) NEGATIVE (NEGATIVE); UR RBC 1 /HPF (0-5); UR SPECIFIC GRAVITY (Dip) 1.028 (1.003-1.030); UR TOTAL PROTEIN (Dip) 3+ mg/dl (NEGATIVE); UR UROBILINOGEN (Dip) NEGATIVE (NEGATIVE); UR WBC 1 /HPF (0-5)
[2018-11-01] MEDS ORDERED: PROPOFOL 100 ML (05:06)
[2018-11-01 05:10] LABS: HEMOGLOBIN A1C 6.1 % (0-5.9)
[2018-11-01 05:25] LABS: ALANINE AMINOTRANSFERASE 14 IU/L (13-69); ALBUMIN 3.9 g/dl (3.3-4.9); ALBUMIN/GLOBULIN RATIO 0.75; ALKALINE PHOSPHATASE 126 IU/L (42-121); ASPARTATE AMINO TRANSFERASE 27 IU/L (15-46); BILIRUBIN,INDIRECT 0.3 mg/dl (0-1.1); BILIRUBIN,TOTAL 0.3 mg/dl (0.2-1.3); BLOOD UREA NITROGEN 16 mg/dl (7-20); CALCIUM 8.9 mg/dl (8.4-10.2); CHLORIDE 95 mmol/L (97-110); CREATININE 0.79 mg/dl (0.61-1.24); Estimated GFR > 60 mL/min (>60); GLUCOSE 139 mg/dl (70-220); MAGNESIUM 2.2 mg/dl (1.7-2.5); PHOSPHORUS 4.8 mg/dl (2.5-4.9); POTASSIUM 5.4 mmol/L (3.5-5.1); SODIUM 145 mmol/L (135-144); TOTAL PROTEIN 9.1 g/dl (6.1-8.1)
[2018-11-01 05:31] LABS: ANION GAP 13 (5-13)
[2018-11-01] MEDS: PROPOFOL 100 ML IV ×8 (05:40→23:00)
[2018-11-01 05:41] LABS: CARBON DIOXIDE 37 mmol/L (21-31)
[2018-11-01] MEDS: FENTAnyl (DRIP) 1000 mcg/100mL 100 ML IV (06:07)
[2018-11-01] MEDS: PANTOPRAZOLE 40 MG INJ IV (06:19)
[2018-11-01] MEDS ORDERED: LIDOCAINE 100 MG SYRINGE (07:00)
[2018-11-01] MEDS ORDERED: SUCCINYLCHOLINE CHLORIDE 100 MG/5 ML SYG IV (07:00)
[2018-11-01] MEDS ORDERED: ETOMIDATE 20 MG INJ (07:00)
[2018-11-01] MEDS ORDERED: ROCURONIUM 50 MG INJ (07:00)
[2018-11-01 07:38] LABS: AADO2 Arterial 490.5 mmHg (7.0-24.0); Allen Test ACCEPTAB; Arterial Base Excess 5.5 mmol/L (-3.0-3); Arterial COHb 1.3 % (0.0-3.0); Arterial Fraction of Oxyhgb 96.4 % (93.0-99.0); Arterial HCO3 37.2 mmol/L (22.0-26.0); Arterial MetHb 0.3 % (0.0-1.5); Arterial pCO2 99.6 mmhg (35-45); MODE VENT - AC; Site Right Radial
[2018-11-01] MEDS: ENOXAPARIN 40 MG/0.4 ML SYG SC ×2 (08:45→20:25)
[2018-11-01] MEDS ORDERED: MEROPENEM 1 GM/50ML(PMX) 50 ML IVPB (09:00)
[2018-11-01] MEDS ORDERED: INFLUENZA VIRUS VACCINE 0.5 ML (DISPENSING) IM* (10:00)
[2018-11-01] MEDS: FUROSEMIDE 40 MG INJ IV ×2 (11:07→17:52)
[2018-11-01 11:39] LABS: AADO2 Arterial 494.7 mmHg (7.0-24.0); Allen Test ACCEPTAB; Arterial Base Excess 5.3 mmol/L (-3.0-3); Arterial COHb 0.9 % (0.0-3.0); Arterial Fraction of Oxyhgb 97.7 % (93.0-99.0); Arterial HCO3 33.7 mmol/L (22.0-26.0); Arterial MetHb 0.4 % (0.0-1.5); Arterial pCO2 68.9 mmhg (35-45); MODE VENT - AC; Site Right Radial
[2018-11-02] MEDS: PIPER-TAZO 3.375 GM IV (PMX) 100 ML IVPB ×5 (00:07→23:17)
[2018-11-02] MEDS: PROPOFOL 100 ML IV ×8 (01:54→22:02)
[2018-11-02] MEDS: VANCOMYCIN HCL 2 GM in SOD CHLORIDE 0.9% 500 ML IVPB ×2 (02:26→15:09)
[2018-11-02] MEDS: FENTAnyl (DRIP) 1000 mcg/100mL 100 ML IV (04:56)
[2018-11-02 05:03] LABS: ADD MAN DIFF? NO
[2018-11-02 05:09] LABS: WHITE BLOOD COUNT 14.8 10^3/ul (4.8-10.8)
[2018-11-02 05:09] LABS: ABNORMAL IP MESSAGE 1; BASOPHIL # 0.1 10^3/ul (0.0-0.1); BASOPHILS % 0.4 % (0.0-2.0); EOSINOPHILS # 0.1 10^3/ul (0.0-0.5); EOSINOPHILS % 0.3 % (0.0-7.0); HEMOGLOBIN 10.8 g/dl (14.0-18.0); LYMPHOCYTES # 2.1 10^3/ul (0.8-2.9); LYMPHOCYTES % 14.4 % (15.0-51.0); MEAN CORPUSCULAR HEMOGLOBIN 22.1 pg (29.0-33.0); MEAN CORPUSCULAR HGB CONC 26.3 g/dl (32.0-37.0); MEAN CORPUSCULAR VOLUME 83.8 fl (82.0-101.0); MEAN PLATELET VOLUME 8.8 fl (7.4-10.4); MONOCYTE # 1.1 10^3/ul (0.3-0.9); MONOCYTES % 7.6 % (0.0-11.0); NEUTROPHIL # 11.3 10^3/ul (1.6-7.5); NEUTROPHILS % 76.5 % (39.0-77.0); NUCLEATED RED BLOOD CELLS # 0.1 10^3/ul (0.0-0.0); NUCLEATED RED BLOOD CELLS% 0.4 /100WBC (0.0-0.0); PLATELET COUNT 246 10^3/UL (140-415); POSITIVE DIFF @See below; RED BLOOD COUNT 4.89 10^6/ul (4.70-6.10); RED CELL DISTRIBUTION WIDTH 17.4 % (11.5-14.5)
[2018-11-02 05:30] LABS: ALANINE AMINOTRANSFERASE 23 IU/L (13-69); ALBUMIN 3.3 g/dl (3.3-4.9); ALBUMIN/GLOBULIN RATIO 0.73; ALKALINE PHOSPHATASE 97 IU/L (42-121); ASPARTATE AMINO TRANSFERASE 21 IU/L (15-46); BILIRUBIN,INDIRECT 0.2 mg/dl (0-1.1); BILIRUBIN,TOTAL 0.2 mg/dl (0.2-1.3); BLOOD UREA NITROGEN 27 mg/dl (7-20); CALCIUM 8.9 mg/dl (8.4-10.2); CHLORIDE 95 mmol/L (97-110); CREATININE 1.03 mg/dl (0.61-1.24); Estimated GFR > 60 mL/min (>60); GLUCOSE 124 mg/dl (70-220); MAGNESIUM 2.1 mg/dl (1.7-2.5); POTASSIUM 3.9 mmol/L (3.5-5.1); SODIUM 147 mmol/L (135-144); TOTAL PROTEIN 7.8 g/dl (6.1-8.1)
[2018-11-02 05:37] LABS: ANION GAP 14 (5-13)
[2018-11-02 05:40] LABS: CARBON DIOXIDE 38 mmol/L (21-31)
[2018-11-02] MEDS: FUROSEMIDE 40 MG INJ IV ×2 (06:00→17:56)
[2018-11-02] MEDS: PANTOPRAZOLE 40 MG INJ IV (06:00)
[2018-11-02] MEDS: ENOXAPARIN 40 MG/0.4 ML SYG SC ×2 (09:42→22:04)
[2018-11-02] MEDS: SOD CHLORIDE 0.45% 1,000 ML IV (09:47)
[2018-11-02 10:36] LABS: AADO2 Arterial 292.6 mmHg (7.0-24.0); Allen Test ACCEPTAB; Arterial Blood Gas Oxygen Sat 96.1 mmHG (95.0-98.0); Arterial COHb 0.5 % (0.0-3.0); Arterial Fraction of Oxyhgb 95.3 % (93.0-99.0); Arterial HCO3 42.8 mmol/L (22.0-26.0); Arterial MetHb 0.3 % (0.0-1.5); Arterial pCO2 77.2 mmhg (35-45); MODE VENT - AC; Site Right Radial
[2018-11-02 14:40] LABS: VANCOMYCIN,TROUGH 19.1 ug/ml (10.0-20.0)
[2018-11-03] MEDS: PROPOFOL 100 ML IV ×8 (00:37→23:00)
[2018-11-03] MEDS: SOD CHLORIDE 0.45% 1,000 ML IV ×2 (05:18→17:48)
[2018-11-03] MEDS: FUROSEMIDE 40 MG INJ IV ×2 (05:19→17:42)
[2018-11-03] MEDS: PIPER-TAZO 3.375 GM IV (PMX) 100 ML IVPB ×4 (05:19→23:48)
[2018-11-03] MEDS: LANSOPRAZOLE 30 MG CAP PO (05:21)
[2018-11-03 05:24] LABS: ADD MAN DIFF? NO
[2018-11-03 05:29] LABS: ABNORMAL IP MESSAGE 1; BASOPHIL # 0.1 10^3/ul (0.0-0.1); BASOPHILS % 0.5 % (0.0-2.0); EOSINOPHILS # 0.2 10^3/ul (0.0-0.5); EOSINOPHILS % 1.4 % (0.0-7.0); HEMATOCRIT 42.2 % (42.0-52.0); HEMOGLOBIN 11.2 g/dl (14.0-18.0); LYMPHOCYTES # 2.1 10^3/ul (0.8-2.9); LYMPHOCYTES % 16.9 % (15.0-51.0); MEAN CORPUSCULAR HEMOGLOBIN 22.3 pg (29.0-33.0); MEAN CORPUSCULAR HGB CONC 26.5 g/dl (32.0-37.0); MEAN CORPUSCULAR VOLUME 83.9 fl (82.0-101.0); MEAN PLATELET VOLUME 8.9 fl (7.4-10.4); MONOCYTE # 1.3 10^3/ul (0.3-0.9); MONOCYTES % 10.1 % (0.0-11.0); NEUTROPHIL # 8.8 10^3/ul (1.6-7.5); NEUTROPHILS % 70.5 % (39.0-77.0); NUCLEATED RED BLOOD CELLS% 0.2 /100WBC (0.0-0.0); PLATELET COUNT 245 10^3/UL (140-415); POSITIVE DIFF @See below; RED BLOOD COUNT 5.03 10^6/ul (4.70-6.10)
[2018-11-03 05:29] LABS: WHITE BLOOD COUNT 12.5 10^3/ul (4.8-10.8)
[2018-11-03] MEDS: FENTAnyl (DRIP) 1000 mcg/100mL 100 ML IV (05:29)
[2018-11-03] MEDS ORDERED: VANCOMYCIN HCL 1.5 GM in SOD CHLORIDE 0.9% 250 ML IVPB (06:00)
[2018-11-03 06:12] LABS: Allen Test ACCEPTAB; Arterial Base Excess 12.9 mmol/L (-3.0-3); Arterial Blood Gas Oxygen Sat 94.7 mmHG (95.0-98.0); Arterial COHb 0.5 % (0.0-3.0); Arterial Fraction of Oxyhgb 93.8 % (93.0-99.0); Arterial HCO3 41.6 mmol/L (22.0-26.0); Arterial MetHb 0.4 % (0.0-1.5); Arterial pCO2 75.6 mmhg (35-45); MODE VENT - AC; Site Right Radial
[2018-11-03 06:17] LABS: BLOOD UREA NITROGEN 26 mg/dl (7-20); CALCIUM 8.6 mg/dl (8.4-10.2); CHLORIDE 94 mmol/L (97-110); Estimated GFR > 60 mL/min (>60); GLUCOSE 101 mg/dl (70-220); PHOSPHORUS 5.4 mg/dl (2.5-4.9); POTASSIUM 3.9 mmol/L (3.5-5.1); SODIUM 145 mmol/L (135-144)
[2018-11-03 06:24] LABS: ANION GAP 12 (5-13)
[2018-11-03 06:32] LABS: CARBON DIOXIDE 39 mmol/L (21-31)
[2018-11-03] MEDS: VANCOMYCIN HCL 1.5 GM in SOD CHLORIDE 0.9% 250 ML IVPB (09:10)
[2018-11-03] MEDS: ENOXAPARIN 40 MG/0.4 ML SYG SC ×2 (09:16→21:27)
[2018-11-03] MEDS: LIDOCAINE 1% (MPF) 5 ML VIAL SC (11:30)
[2018-11-04] MEDS ORDERED: MIDAZOLAM (DRIP) 50 mg/50 mL 50 ML IV (01:13)
[2018-11-04] MEDS: PROPOFOL 100 ML IV ×8 (01:29→23:25)
[2018-11-04] MEDS: MIDAZOLAM (DRIP) 50 mg/50 mL 50 ML IV ×5 (01:29→22:12)
[2018-11-04] MEDS: SOD CHLORIDE 0.45% 1,000 ML IV ×3 (02:00→20:03)
[2018-11-04 04:54] LABS: ADD MAN DIFF? NO
[2018-11-04 04:58] LABS: ABNORMAL IP MESSAGE 1; BASOPHILS % 0.2 % (0.0-2.0); EOSINOPHILS # 0.2 10^3/ul (0.0-0.5); HEMATOCRIT 40.8 % (42.0-52.0); LYMPHOCYTES # 1.5 10^3/ul (0.8-2.9); LYMPHOCYTES % 13.7 % (15.0-51.0); MEAN CORPUSCULAR HEMOGLOBIN 22.5 pg (29.0-33.0); MEAN CORPUSCULAR VOLUME 83.6 fl (82.0-101.0); MEAN PLATELET VOLUME 8.6 fl (7.4-10.4); MONOCYTES % 8.8 % (0.0-11.0); NEUTROPHIL # 8.2 10^3/ul (1.6-7.5); NEUTROPHILS % 74.8 % (39.0-77.0); PLATELET COUNT 207 10^3/UL (140-415); POSITIVE DIFF @See below; RED BLOOD COUNT 4.88 10^6/ul (4.70-6.10); RED CELL DISTRIBUTION WIDTH 17.5 % (11.5-14.5)
[2018-11-04] MEDS: PIPER-TAZO 3.375 GM IV (PMX) 100 ML IVPB ×4 (05:05→23:22)
[2018-11-04] MEDS: FUROSEMIDE 40 MG INJ IV ×2 (05:07→16:07)
[2018-11-04 05:18] LABS: BLOOD UREA NITROGEN 20 mg/dl (7-20); CALCIUM 8.8 mg/dl (8.4-10.2); CHLORIDE 93 mmol/L (97-110); Estimated GFR > 60 mL/min (>60); GLUCOSE 95 mg/dl (70-220); POTASSIUM 3.9 mmol/L (3.5-5.1); SODIUM 144 mmol/L (135-144)
[2018-11-04 05:24] LABS: ANION GAP 11 (5-13)
[2018-11-04 05:31] LABS: CARBON DIOXIDE 40 mmol/L (21-31)
[2018-11-04] MEDS: FENTAnyl (DRIP) 1000 mcg/100mL 100 ML IV ×2 (05:40→14:12)
[2018-11-04 08:36] LABS: AADO2 Arterial 307.8 mmHg (7.0-24.0); Allen Test ACCEPTAB; Arterial Base Excess 13.4 mmol/L (-3.0-3); Arterial Blood Gas Oxygen Sat 94.8 mmHG (95.0-98.0); Arterial COHb 0.6 % (0.0-3.0); Arterial HCO3 41.3 mmol/L (22.0-26.0); Arterial MetHb 0.2 % (0.0-1.5); Arterial pCO2 70.3 mmhg (35-45); MODE VENT - AC; Site Right Radial
[2018-11-04] MEDS: FAMOTIDINE 20 MG TAB GTB ×2 (10:12→21:27)
[2018-11-04] MEDS: ENOXAPARIN 40 MG/0.4 ML SYG SC ×2 (10:13→21:31)
[2018-11-04] MEDS: LIDOCAINE 1% (MPF) 5 ML VIAL SC (12:00)
[2018-11-05] MEDS: PROPOFOL 100 ML IV ×7 (02:59→22:02)
[2018-11-05] MEDS: MIDAZOLAM (DRIP) 50 mg/50 mL 50 ML IV (02:59)
[2018-11-05 05:04] LABS: ADD MAN DIFF? NO
[2018-11-05 05:08] LABS: ABNORMAL IP MESSAGE 1; BASOPHILS % 0.2 % (0.0-2.0); EOSINOPHILS # 0.4 10^3/ul (0.0-0.5); EOSINOPHILS % 3.6 % (0.0-7.0); HEMATOCRIT 39.7 % (42.0-52.0); HEMOGLOBIN 10.6 g/dl (14.0-18.0); LYMPHOCYTES # 1.8 10^3/ul (0.8-2.9); LYMPHOCYTES % 14.6 % (15.0-51.0); MEAN CORPUSCULAR HEMOGLOBIN 22.4 pg (29.0-33.0); MEAN CORPUSCULAR HGB CONC 26.7 g/dl (32.0-37.0); MEAN CORPUSCULAR VOLUME 83.8 fl (82.0-101.0); MEAN PLATELET VOLUME 8.6 fl (7.4-10.4); MONOCYTES % 7.9 % (0.0-11.0); NEUTROPHIL # 8.9 10^3/ul (1.6-7.5); PLATELET COUNT 204 10^3/UL (140-415); POSITIVE DIFF @See below; RED BLOOD COUNT 4.74 10^6/ul (4.70-6.10); RED CELL DISTRIBUTION WIDTH 17.8 % (11.5-14.5)
[2018-11-05 05:08] LABS: WHITE BLOOD COUNT 12.1 10^3/ul (4.8-10.8)
[2018-11-05 05:32] LABS: BLOOD UREA NITROGEN 22 mg/dl (7-20); CALCIUM 8.7 mg/dl (8.4-10.2); CHLORIDE 93 mmol/L (97-110); CREATININE 1.06 mg/dl (0.61-1.24); Estimated GFR > 60 mL/min (>60); GLUCOSE 106 mg/dl (70-220); PHOSPHORUS 4.2 mg/dl (2.5-4.9); POTASSIUM 3.7 mmol/L (3.5-5.1); SODIUM 145 mmol/L (135-144)
[2018-11-05 05:38] LABS: ANION GAP 12 (5-13)
[2018-11-05 05:45] LABS: CARBON DIOXIDE 40 mmol/L (21-31)
[2018-11-05] MEDS: PIPER-TAZO 3.375 GM IV (PMX) 100 ML IVPB ×2 (06:25→12:12)
[2018-11-05] MEDS: FUROSEMIDE 40 MG INJ IV ×3 (06:28→18:45)
[2018-11-05] MEDS: FAMOTIDINE 20 MG TAB GTB ×2 (08:15→20:10)
[2018-11-05] MEDS: ENOXAPARIN 40 MG/0.4 ML SYG SC ×2 (08:16→20:11)
[2018-11-05 08:52] LABS: Allen Test ACCEPTAB; Arterial Blood Gas Oxygen Sat 86.5 mmHG (95.0-98.0); Arterial COHb 1.6 % (0.0-3.0); Arterial Fraction of Oxyhgb 84.9 % (93.0-99.0); Arterial HCO3 43.1 mmol/L (22.0-26.0); Arterial MetHb 0.2 % (0.0-1.5); Arterial pCO2 71.7 mmhg (35-45); MODE VENT - AC; Site Right Radial
[2018-11-05 10:52] LABS: AADO2 Arterial 233.5 mmHg (7.0-24.0); Allen Test ACCEPTAB; Arterial Blood Gas Oxygen Sat 94.5 mmHG (95.0-98.0); Arterial COHb 1.4 % (0.0-3.0); Arterial Fraction of Oxyhgb 92.9 % (93.0-99.0); Arterial HCO3 45.3 mmol/L (22.0-26.0); Arterial MetHb 0.3 % (0.0-1.5); Arterial pCO2 73.9 mmhg (35-45); MODE VENT - AC; Site Right Radial
[2018-11-05] MEDS: METHYLPREDNISOLONE 40 MG INJ IV ×2 (12:11→17:17)
[2018-11-05] MEDS ORDERED: NORepinephrine 8MG/250 ML (PMX 250 ML IV (15:00)
[2018-11-05] MEDS: POTASSIUM CHLORIDE 20 MEQ POWDER FOR ORAL SOLN NGT (15:41)
[2018-11-05] MEDS: FENTAnyl (DRIP) 1000 mcg/100mL 100 ML IV (17:23)
[2018-11-05] MEDS ORDERED: SCOPOLAMINE 1.5 MG PATCH TRANSDERM (20:00)
[2018-11-05] MEDS: SCOPOLAMINE 1.5 MG PATCH TRANSDERM (21:17)
[2018-11-06] MEDS: METHYLPREDNISOLONE 40 MG INJ IV ×4 (00:38→18:42)
[2018-11-06] MEDS: PROPOFOL 100 ML IV ×8 (01:43→22:10)
[2018-11-06] MEDS: FUROSEMIDE 40 MG INJ IV ×2 (05:22→18:42)
[2018-11-06 05:23] LABS: ADD MAN DIFF? NO
[2018-11-06 05:32] LABS: ABNORMAL IP MESSAGE 1; BASOPHILS % 0.2 % (0.0-2.0); HEMATOCRIT 41.7 % (42.0-52.0); HEMOGLOBIN 11.3 g/dl (14.0-18.0); LYMPHOCYTES # 0.7 10^3/ul (0.8-2.9); LYMPHOCYTES % 5.7 % (15.0-51.0); MEAN CORPUSCULAR HEMOGLOBIN 22.6 pg (29.0-33.0); MEAN CORPUSCULAR HGB CONC 27.1 g/dl (32.0-37.0); MEAN CORPUSCULAR VOLUME 83.6 fl (82.0-101.0); MEAN PLATELET VOLUME 9.3 fl (7.4-10.4); MONOCYTE # 0.2 10^3/ul (0.3-0.9); MONOCYTES % 1.7 % (0.0-11.0); NEUTROPHIL # 11.9 10^3/ul (1.6-7.5); NEUTROPHILS % 91.7 % (39.0-77.0); PLATELET COUNT 231 10^3/UL (140-415); POSITIVE DIFF @See below; RED BLOOD COUNT 4.99 10^6/ul (4.70-6.10); RED CELL DISTRIBUTION WIDTH 17.1 % (11.5-14.5)
[2018-11-06 06:03] LABS: BLOOD UREA NITROGEN 29 mg/dl (7-20); CALCIUM 9.1 mg/dl (8.4-10.2); CHLORIDE 93 mmol/L (97-110); CREATININE 0.87 mg/dl (0.61-1.24); Estimated GFR > 60 mL/min (>60); GLUCOSE 180 mg/dl (70-220); POTASSIUM 4.3 mmol/L (3.5-5.1); SODIUM 146 mmol/L (135-144)
[2018-11-06 06:13] LABS: ANION GAP 13 (5-13)
[2018-11-06 06:18] LABS: CARBON DIOXIDE 40 mmol/L (21-31)
[2018-11-06] MEDS: FENTAnyl (DRIP) 1000 mcg/100mL 100 ML IV ×2 (07:09→22:55)
[2018-11-06 08:24] LABS: AADO2 Arterial 242.3 mmHg (7.0-24.0); Allen Test ACCEPTAB; Arterial Base Excess 15.6 mmol/L (-3.0-3); Arterial Blood Gas Oxygen Sat 93.6 mmHG (95.0-98.0); Arterial COHb 1.2 % (0.0-3.0); Arterial Fraction of Oxyhgb 92.3 % (93.0-99.0); Arterial HCO3 43.4 mmol/L (22.0-26.0); Arterial MetHb 0.2 % (0.0-1.5); Arterial pCO2 69.9 mmhg (35-45); MODE VENT - AC; Site Right Radial
[2018-11-06] MEDS ORDERED: DOCUSATE SODIUM 100 MG CAP PO (10:00)
[2018-11-06] MEDS: FAMOTIDINE 20 MG TAB GTB ×2 (10:01→20:25)
[2018-11-06] MEDS: ENOXAPARIN 40 MG/0.4 ML SYG SC ×2 (10:04→20:29)
[2018-11-06 18:19] LABS: TROPONIN-I < 0.012 ng/ml (0.000-0.120)
[2018-11-06] MEDS: DOCUSATE SODIUM 10 MG/ML (10ML CUP) NGT (20:25)
[2018-11-07] MEDS: METHYLPREDNISOLONE 40 MG INJ IV ×4 (00:05→18:17)
[2018-11-07] MEDS: PROPOFOL 100 ML IV ×9 (00:56→22:43)
[2018-11-07 04:56] LABS: ADD MAN DIFF? NO
[2018-11-07 04:58] LABS: WHITE BLOOD COUNT 16.8 10^3/ul (4.8-10.8)
[2018-11-07 04:58] LABS: ABNORMAL IP MESSAGE 1; BASOPHILS % 0.1 % (0.0-2.0); HEMATOCRIT 41.6 % (42.0-52.0); HEMOGLOBIN 11.2 g/dl (14.0-18.0); LYMPHOCYTES # 0.8 10^3/ul (0.8-2.9); LYMPHOCYTES % 4.5 % (15.0-51.0); MEAN CORPUSCULAR HEMOGLOBIN 22.8 pg (29.0-33.0); MEAN CORPUSCULAR HGB CONC 26.9 g/dl (32.0-37.0); MEAN CORPUSCULAR VOLUME 84.7 fl (82.0-101.0); MONOCYTE # 0.6 10^3/ul (0.3-0.9); MONOCYTES % 3.8 % (0.0-11.0); NEUTROPHIL # 15.3 10^3/ul (1.6-7.5); PLATELET COUNT 262 10^3/UL (140-415); POSITIVE DIFF @See below; RED BLOOD COUNT 4.91 10^6/ul (4.70-6.10); RED CELL DISTRIBUTION WIDTH 17.1 % (11.5-14.5)
[2018-11-07 05:24] LABS: BLOOD UREA NITROGEN 42 mg/dl (7-20); CALCIUM 8.8 mg/dl (8.4-10.2); CHLORIDE 90 mmol/L (97-110); CREATININE 0.78 mg/dl (0.61-1.24); Estimated GFR > 60 mL/min (>60); GLUCOSE 154 mg/dl (70-220); MAGNESIUM 2.4 mg/dl (1.7-2.5); PHOSPHORUS 2.8 mg/dl (2.5-4.9); POTASSIUM 4.3 mmol/L (3.5-5.1); SODIUM 145 mmol/L (135-144)
[2018-11-07 05:31] LABS: ANION GAP 16 (5-13)
[2018-11-07 05:32] LABS: CARBON DIOXIDE 39 mmol/L (21-31)
[2018-11-07] MEDS: FUROSEMIDE 40 MG INJ IV ×2 (05:57→18:17)
[2018-11-07 08:43] LABS: AADO2 Arterial 143.6 mmHg (7.0-24.0); Allen Test ACCEPTAB; Arterial Base Excess 17.7 mmol/L (-3.0-3); Arterial Blood Gas Oxygen Sat 90.2 mmHG (95.0-98.0); Arterial COHb 0.9 % (0.0-3.0); Arterial Fraction of Oxyhgb 89.3 % (93.0-99.0); Arterial HCO3 45.4 mmol/L (22.0-26.0); Arterial MetHb 0.1 % (0.0-1.5); Arterial pCO2 69.3 mmhg (35-45); MODE VENT - AC; Site Right Radial
[2018-11-07] MEDS: FAMOTIDINE 20 MG TAB GTB ×2 (08:49→20:34)
[2018-11-07] MEDS: DOCUSATE SODIUM 10 MG/ML (10ML CUP) NGT ×2 (08:49→20:34)
[2018-11-07] MEDS ORDERED: VANCOMYCIN IV PER PHARMACY XX (09:00)
[2018-11-07] MEDS: ENOXAPARIN 40 MG/0.4 ML SYG SC ×2 (09:17→21:36)
[2018-11-07] MEDS: CEFEPIME 1GM/50 ML (PMX) 50 ML IVPB ×2 (09:23→20:34)
[2018-11-07] MEDS: VANCOMYCIN HCL 2 GM in SOD CHLORIDE 0.9% 500 ML IVPB (12:15)
[2018-11-07] MEDS: FENTAnyl (DRIP) 1000 mcg/100mL 100 ML IV (18:55)
[2018-11-07] MEDS: VANCOMYCIN HCL 1.5 GM in SOD CHLORIDE 0.9% 250 ML IVPB (22:45)
[2018-11-08] MEDS: PROPOFOL 100 ML IV ×8 (00:27→21:19)
[2018-11-08] MEDS: METHYLPREDNISOLONE 40 MG INJ IV ×4 (01:09→18:02)
[2018-11-08] MEDS: FENTAnyl (DRIP) 1000 mcg/100mL 100 ML IV ×2 (05:05→18:12)
[2018-11-08 05:30] LABS: ADD MAN DIFF? NO
[2018-11-08 05:52] LABS: WHITE BLOOD COUNT 11.5 10^3/ul (4.8-10.8)
[2018-11-08 05:52] LABS: ABNORMAL IP MESSAGE 1; BASOPHILS % 0.1 % (0.0-2.0); HEMATOCRIT 41.7 % (42.0-52.0); HEMOGLOBIN 10.9 g/dl (14.0-18.0); LYMPHOCYTES # 1.1 10^3/ul (0.8-2.9); LYMPHOCYTES % 9.6 % (15.0-51.0); MEAN CORPUSCULAR HEMOGLOBIN 22.3 pg (29.0-33.0); MEAN CORPUSCULAR HGB CONC 26.1 g/dl (32.0-37.0); MEAN CORPUSCULAR VOLUME 85.3 fl (82.0-101.0); MEAN PLATELET VOLUME 9.6 fl (7.4-10.4); MONOCYTE # 0.7 10^3/ul (0.3-0.9); MONOCYTES % 5.9 % (0.0-11.0); NEUTROPHIL # 9.6 10^3/ul (1.6-7.5); NEUTROPHILS % 83.7 % (39.0-77.0); PLATELET COUNT 288 10^3/UL (140-415); POSITIVE DIFF @See below; RED BLOOD COUNT 4.89 10^6/ul (4.70-6.10); RED CELL DISTRIBUTION WIDTH 17.5 % (11.5-14.5)
[2018-11-08 06:00] LABS: BLOOD UREA NITROGEN 50 mg/dl (7-20); CALCIUM 9.1 mg/dl (8.4-10.2); CHLORIDE 96 mmol/L (97-110); CREATININE 1.01 mg/dl (0.61-1.24); Estimated GFR > 60 mL/min (>60); GLUCOSE 168 mg/dl (70-220); POTASSIUM 3.9 mmol/L (3.5-5.1); SODIUM 149 mmol/L (135-144)
[2018-11-08 06:09] LABS: ANION GAP 12 (5-13)
[2018-11-08 06:11] LABS: CARBON DIOXIDE 41 mmol/L (21-31)
[2018-11-08] MEDS: FUROSEMIDE 40 MG INJ IV (06:53)
[2018-11-08 08:01] LABS: AADO2 Arterial 141.4 mmHg (7.0-24.0); Allen Test ACCEPTAB; Arterial Base Excess 15.1 mmol/L (-3.0-3); Arterial Blood Gas Oxygen Sat 93.3 mmHG (95.0-98.0); Arterial COHb 0.9 % (0.0-3.0); Arterial Fraction of Oxyhgb 92.2 % (93.0-99.0); Arterial HCO3 42.1 mmol/L (22.0-26.0); Arterial MetHb 0.3 % (0.0-1.5); Arterial pCO2 63.1 mmhg (35-45); MODE VENT - AC; Site Left Radial
[2018-11-08] MEDS: DOCUSATE SODIUM 10 MG/ML (10ML CUP) NGT ×2 (08:31→21:18)
[2018-11-08] MEDS: FAMOTIDINE 20 MG TAB GTB ×2 (08:31→21:18)
[2018-11-08] MEDS: CEFEPIME 1GM/50 ML (PMX) 50 ML IVPB ×2 (08:32→21:18)
[2018-11-08] MEDS: HALOPERIDOL 5 MG INJ IM (08:32)
[2018-11-08] MEDS: ENOXAPARIN 40 MG/0.4 ML SYG SC ×2 (08:41→21:21)
[2018-11-08 10:16] LABS: AADO2 Arterial 127.1 mmHg (7.0-24.0); Allen Test ACCEPTAB; Arterial Base Excess 18.7 mmol/L (-3.0-3); Arterial Blood Gas Oxygen Sat 92.7 mmHG (95.0-98.0); Arterial COHb 0.8 % (0.0-3.0); Arterial Fraction of Oxyhgb 91.8 % (93.0-99.0); Arterial HCO3 47.1 mmol/L (22.0-26.0); Arterial MetHb 0.2 % (0.0-1.5); Arterial pCO2 75.7 mmhg (35-45); MODE VENT - AC; Site Left Radial
[2018-11-08] MEDS: MIDAZOLAM (DRIP) 50 mg/50 mL 50 ML IV ×2 (11:40→18:03)
[2018-11-08] MEDS: VANCOMYCIN HCL 1.5 GM in SOD CHLORIDE 0.9% 250 ML IVPB (11:41)
[2018-11-08] MEDS: NAPHAZOLINE 0.012% 15 ML OPH BOTH EYES ×2 (17:00→21:18)
[2018-11-08] MEDS: SCOPOLAMINE 1.5 MG PATCH TRANSDERM (21:18)
[2018-11-09] MEDS: VANCOMYCIN HCL 1.5 GM in SOD CHLORIDE 0.9% 250 ML IVPB ×3 (00:17→22:07)
[2018-11-09] MEDS: METHYLPREDNISOLONE 40 MG INJ IV ×4 (00:18→17:24)
[2018-11-09] MEDS: PROPOFOL 100 ML IV ×6 (01:10→22:07)
[2018-11-09] MEDS: MIDAZOLAM (DRIP) 50 mg/50 mL 50 ML IV ×2 (05:16→15:24)
[2018-11-09 05:48] LABS: PHOSPHORUS 5.3 mg/dl (2.5-4.9)
[2018-11-09 05:48] LABS: MAGNESIUM 2.8 mg/dl (1.7-2.5)
[2018-11-09 08:57] LABS: BLOOD UREA NITROGEN 52 mg/dl (7-20); CALCIUM 9.3 mg/dl (8.4-10.2); CHLORIDE 98 mmol/L (97-110); Estimated GFR > 60 mL/min (>60); GLUCOSE 166 mg/dl (70-220); POTASSIUM 4.3 mmol/L (3.5-5.1); SODIUM 148 mmol/L (135-144)
[2018-11-09 09:05] LABS: ANION GAP 11 (5-13)
[2018-11-09 09:13] LABS: CARBON DIOXIDE 39 mmol/L (21-31)
[2018-11-09 09:49] LABS: CHOL/HDL RATIO 10.5 RATIO; HDL CHOLESTEROL 18 mg/dl (28-63); LDL CHOLESTEROL,CALCULATED 139 mg/dl; TRIGLYCERIDES 163 mg/dl (0-149)
[2018-11-09 09:49] LABS: CHOLESTEROL 190 mg/dl (100-200)
[2018-11-09] MEDS: POLYETHYLENE GLYCOL 17 GM PACKET GTB (10:01)
[2018-11-09] MEDS: CEFEPIME 1GM/50 ML (PMX) 50 ML IVPB ×2 (10:01→21:34)
[2018-11-09] MEDS: DOCUSATE SODIUM 10 MG/ML (10ML CUP) NGT ×2 (10:01→21:34)
[2018-11-09] MEDS: ENOXAPARIN 40 MG/0.4 ML SYG SC ×2 (10:02→21:35)
[2018-11-09] MEDS: FAMOTIDINE 20 MG TAB GTB ×2 (10:03→21:34)
[2018-11-09] MEDS: NAPHAZOLINE 0.012% 15 ML OPH BOTH EYES ×4 (10:04→21:34)
[2018-11-09 11:01] LABS: ADD MAN DIFF? NO
[2018-11-09 11:02] LABS: WHITE BLOOD COUNT 10.5 10^3/ul (4.8-10.8)
[2018-11-09 11:02] LABS: ABNORMAL IP MESSAGE 1; BASOPHILS % 0.1 % (0.0-2.0); HEMATOCRIT 43.5 % (42.0-52.0); HEMOGLOBIN 11.2 g/dl (14.0-18.0); LYMPHOCYTES # 1.1 10^3/ul (0.8-2.9); LYMPHOCYTES % 10.1 % (15.0-51.0); MEAN CORPUSCULAR HEMOGLOBIN 22.3 pg (29.0-33.0); MEAN CORPUSCULAR HGB CONC 25.7 g/dl (32.0-37.0); MEAN CORPUSCULAR VOLUME 86.7 fl (82.0-101.0); MEAN PLATELET VOLUME 9.1 fl (7.4-10.4); MONOCYTE # 1.3 10^3/ul (0.3-0.9); MONOCYTES % 12.5 % (0.0-11.0); NEUTROPHIL # 8.1 10^3/ul (1.6-7.5); NEUTROPHILS % 76.6 % (39.0-77.0); PLATELET COUNT 274 10^3/UL (140-415); POSITIVE DIFF @See below; RED BLOOD COUNT 5.02 10^6/ul (4.70-6.10); RED CELL DISTRIBUTION WIDTH 16.8 % (11.5-14.5)
[2018-11-09 11:20] LABS: BLOOD UREA NITROGEN 48 mg/dl (7-20); CALCIUM 9.5 mg/dl (8.4-10.2); CHLORIDE 98 mmol/L (97-110); CREATININE 0.85 mg/dl (0.61-1.24); Estimated GFR > 60 mL/min (>60); GLUCOSE 181 mg/dl (70-220); POTASSIUM 4.3 mmol/L (3.5-5.1); SODIUM 148 mmol/L (135-144)
[2018-11-09 11:27] LABS: ANION GAP 11 (5-13)
[2018-11-09 11:28] LABS: CARBON DIOXIDE 39 mmol/L (21-31)
[2018-11-09] MEDS: FENTAnyl (DRIP) 1000 mcg/100mL 100 ML IV (12:56)
[2018-11-09] MEDS: ACETAMINOPHEN 650MG/20.3ML CUP NGT (22:08)
[2018-11-10] MEDS: MIDAZOLAM (DRIP) 50 mg/50 mL 50 ML IV ×2 (00:03→13:45)
[2018-11-10] MEDS: METHYLPREDNISOLONE 40 MG INJ IV ×5 (00:03→23:21)
[2018-11-10] MEDS: PROPOFOL 100 ML IV ×7 (01:38→20:21)
[2018-11-10 05:45] LABS: ADD MAN DIFF? NO
[2018-11-10 05:59] LABS: ABNORMAL IP MESSAGE 1; HEMATOCRIT 45.9 % (42.0-52.0); HEMOGLOBIN 11.9 g/dl (14.0-18.0); LYMPHOCYTES # 1.2 10^3/ul (0.8-2.9); LYMPHOCYTES % 10.2 % (15.0-51.0); MEAN CORPUSCULAR HEMOGLOBIN 22.3 pg (29.0-33.0); MEAN CORPUSCULAR HGB CONC 25.9 g/dl (32.0-37.0); MEAN PLATELET VOLUME 9.8 fl (7.4-10.4); MONOCYTE # 1.2 10^3/ul (0.3-0.9); MONOCYTES % 10.2 % (0.0-11.0); NEUTROPHIL # 9.2 10^3/ul (1.6-7.5); NEUTROPHILS % 78.9 % (39.0-77.0); PLATELET COUNT 310 10^3/UL (140-415); POSITIVE DIFF @See below; RED BLOOD COUNT 5.34 10^6/ul (4.70-6.10); RED CELL DISTRIBUTION WIDTH 16.6 % (11.5-14.5)
[2018-11-10 05:59] LABS: WHITE BLOOD COUNT 11.7 10^3/ul (4.8-10.8)
[2018-11-10 06:12] LABS: MAGNESIUM 2.6 mg/dl (1.7-2.5)
[2018-11-10 06:12] LABS: PHOSPHORUS 4.9 mg/dl (2.5-4.9)
[2018-11-10 06:18] LABS: BLOOD UREA NITROGEN 49 mg/dl (7-20); CALCIUM 9.6 mg/dl (8.4-10.2); CHLORIDE 102 mmol/L (97-110); CREATININE 0.79 mg/dl (0.61-1.24); Estimated GFR > 60 mL/min (>60); GLUCOSE 150 mg/dl (70-220); POTASSIUM 4.4 mmol/L (3.5-5.1); SODIUM 151 mmol/L (135-144)
[2018-11-10 06:35] LABS: ANION GAP 12 (5-13)
[2018-11-10 07:02] LABS: CARBON DIOXIDE 37 mmol/L (21-31)
[2018-11-10] MEDS: FENTAnyl (DRIP) 1000 mcg/100mL 100 ML IV (07:22)
[2018-11-10 08:49] LABS: AADO2 Arterial 99.4 mmHg (7.0-24.0); Allen Test ACCEPTAB; Arterial Base Excess 11.8 mmol/L (-3.0-3); Arterial Blood Gas Oxygen Sat 60.2 mmHG (95.0-98.0); Arterial COHb 1.2 % (0.0-3.0); Arterial Fraction of Oxyhgb 59.4 % (93.0-99.0); Arterial HCO3 43.1 mmol/L (22.0-26.0); Arterial MetHb 0.2 % (0.0-1.5); Arterial pCO2 96.1 mmhg (35-45); Blood Gas PS 10; MODE VENT - CPAP; Site Right Radial
[2018-11-10] MEDS: FAMOTIDINE 20 MG TAB GTB ×2 (10:22→20:22)
[2018-11-10] MEDS: DOCUSATE SODIUM 10 MG/ML (10ML CUP) NGT ×2 (10:22→20:21)
[2018-11-10] MEDS: CEFEPIME 1GM/50 ML (PMX) 50 ML IVPB (10:23)
[2018-11-10] MEDS: POLYETHYLENE GLYCOL 17 GM PACKET GTB (10:23)
[2018-11-10] MEDS: ENOXAPARIN 40 MG/0.4 ML SYG SC ×2 (10:35→20:32)
[2018-11-10] MEDS: DEXTROSE 5% 1,000 ML IV (11:23)
[2018-11-10] MEDS: NAPHAZOLINE 0.012% 15 ML OPH BOTH EYES ×4 (11:23→20:22)
[2018-11-10] MEDS: VANCOMYCIN HCL 1.5 GM in SOD CHLORIDE 0.9% 250 ML IVPB (11:58)
[2018-11-10] MEDS: ACETAMINOPHEN 650MG/20.3ML CUP NGT (12:13)
[2018-11-10] MEDS: COLISTIMETHATE 75 MG in SOD CHLORIDE 0.9% 100 ML IVPB ×2 (16:07→20:22)
[2018-11-10] MEDS: ZYVOX 600 MG TAB PO (20:22)
[2018-11-11] MEDS: PROPOFOL 100 ML IV ×9 (00:29→22:05)
[2018-11-11] MEDS: MIDAZOLAM (DRIP) 50 mg/50 mL 50 ML IV ×2 (00:30→17:10)
[2018-11-11] MEDS: FENTAnyl (DRIP) 1000 mcg/100mL 100 ML IV (03:52)
[2018-11-11 05:26] LABS: ADD MAN DIFF? NO
[2018-11-11 05:32] LABS: WHITE BLOOD COUNT 12.4 10^3/ul (4.8-10.8)
[2018-11-11 05:32] LABS: ABNORMAL IP MESSAGE 1; BASOPHILS % 0.1 % (0.0-2.0); HEMATOCRIT 42.7 % (42.0-52.0); HEMOGLOBIN 11.3 g/dl (14.0-18.0); LYMPHOCYTES # 1.2 10^3/ul (0.8-2.9); LYMPHOCYTES % 9.6 % (15.0-51.0); MEAN CORPUSCULAR HEMOGLOBIN 22.6 pg (29.0-33.0); MEAN CORPUSCULAR HGB CONC 26.5 g/dl (32.0-37.0); MEAN CORPUSCULAR VOLUME 85.6 fl (82.0-101.0); MEAN PLATELET VOLUME 9.8 fl (7.4-10.4); MONOCYTE # 1.3 10^3/ul (0.3-0.9); MONOCYTES % 10.1 % (0.0-11.0); NEUTROPHIL # 9.9 10^3/ul (1.6-7.5); NEUTROPHILS % 79.6 % (39.0-77.0); PLATELET COUNT 319 10^3/UL (140-415); POSITIVE DIFF @See below; RED BLOOD COUNT 4.99 10^6/ul (4.70-6.10); RED CELL DISTRIBUTION WIDTH 16.3 % (11.5-14.5)
[2018-11-11] MEDS: METHYLPREDNISOLONE 40 MG INJ IV ×3 (05:32→17:09)
[2018-11-11 05:55] LABS: BLOOD UREA NITROGEN 43 mg/dl (7-20); CALCIUM 9.3 mg/dl (8.4-10.2); CHLORIDE 99 mmol/L (97-110); CREATININE 0.83 mg/dl (0.61-1.24); Estimated GFR > 60 mL/min (>60); GLUCOSE 166 mg/dl (70-220); POTASSIUM 4.5 mmol/L (3.5-5.1); SODIUM 144 mmol/L (135-144)
[2018-11-11 06:02] LABS: ANION GAP 8 (5-13)
[2018-11-11 06:05] LABS: PHOSPHORUS 4.4 mg/dl (2.5-4.9)
[2018-11-11 06:05] LABS: CARBON DIOXIDE 37 mmol/L (21-31); MAGNESIUM 2.1 mg/dl (1.7-2.5)
[2018-11-11] MEDS: ACETAMINOPHEN 650MG/20.3ML CUP NGT ×2 (07:55→20:24)
[2018-11-11] MEDS: NAPHAZOLINE 0.012% 15 ML OPH BOTH EYES ×4 (07:55→20:24)
[2018-11-11] MEDS: DOCUSATE SODIUM 10 MG/ML (10ML CUP) NGT ×2 (07:55→20:24)
[2018-11-11] MEDS: FAMOTIDINE 20 MG TAB GTB ×2 (07:56→20:24)
[2018-11-11] MEDS: POLYETHYLENE GLYCOL 17 GM PACKET GTB (07:56)
[2018-11-11] MEDS: ZYVOX 600 MG TAB PO ×2 (07:56→20:25)
[2018-11-11] MEDS: COLISTIMETHATE 75 MG in SOD CHLORIDE 0.9% 100 ML IVPB ×2 (08:36→20:24)
[2018-11-11] MEDS: ENOXAPARIN 40 MG/0.4 ML SYG SC ×2 (08:41→20:30)
[2018-11-11] MEDS: SCOPOLAMINE 1.5 MG PATCH TRANSDERM (20:24)
[2018-11-12] MEDS: METHYLPREDNISOLONE 40 MG INJ IV ×4 (00:31→17:31)
[2018-11-12] MEDS: FENTAnyl (DRIP) 1000 mcg/100mL 100 ML IV ×2 (00:34→17:40)
[2018-11-12] MEDS: PROPOFOL 100 ML IV ×11 (00:35→23:34)
[2018-11-12] MEDS: MIDAZOLAM (DRIP) 50 mg/50 mL 50 ML IV ×2 (04:26→13:20)
[2018-11-12 04:57] LABS: ADD MAN DIFF? NO
[2018-11-12 05:07] LABS: WHITE BLOOD COUNT 13.7 10^3/ul (4.8-10.8)
[2018-11-12 05:07] LABS: ABNORMAL IP MESSAGE 1; BASOPHILS % 0.1 % (0.0-2.0); HEMATOCRIT 42.1 % (42.0-52.0); HEMOGLOBIN 11.2 g/dl (14.0-18.0); LYMPHOCYTES % 7.2 % (15.0-51.0); MEAN CORPUSCULAR HEMOGLOBIN 22.6 pg (29.0-33.0); MEAN CORPUSCULAR HGB CONC 26.6 g/dl (32.0-37.0); MEAN CORPUSCULAR VOLUME 85.1 fl (82.0-101.0); MEAN PLATELET VOLUME 8.9 fl (7.4-10.4); MONOCYTE # 1.2 10^3/ul (0.3-0.9); MONOCYTES % 8.6 % (0.0-11.0); NEUTROPHIL # 11.4 10^3/ul (1.6-7.5); NEUTROPHILS % 83.4 % (39.0-77.0); PLATELET COUNT 299 10^3/UL (140-415); POSITIVE DIFF @See below; RED BLOOD COUNT 4.95 10^6/ul (4.70-6.10); RED CELL DISTRIBUTION WIDTH 16.1 % (11.5-14.5)
[2018-11-12 05:35] LABS: BLOOD UREA NITROGEN 40 mg/dl (7-20); CHLORIDE 100 mmol/L (97-110); CREATININE 0.75 mg/dl (0.61-1.24); Estimated GFR > 60 mL/min (>60); GLUCOSE 151 mg/dl (70-220); POTASSIUM 4.5 mmol/L (3.5-5.1); SODIUM 143 mmol/L (135-144)
[2018-11-12 05:43] LABS: ANION GAP 4 (5-13)
[2018-11-12 05:46] LABS: CARBON DIOXIDE 39 mmol/L (21-31)
[2018-11-12] MEDS: FAMOTIDINE 20 MG TAB GTB ×2 (08:31→21:15)
[2018-11-12] MEDS: ZYVOX 600 MG TAB PO ×2 (08:31→21:15)
[2018-11-12] MEDS: NAPHAZOLINE 0.012% 15 ML OPH BOTH EYES ×4 (08:31→21:17)
[2018-11-12] MEDS: POLYETHYLENE GLYCOL 17 GM PACKET GTB (08:31)
[2018-11-12] MEDS: DOCUSATE SODIUM 10 MG/ML (10ML CUP) NGT ×2 (08:31→21:15)
[2018-11-12] MEDS: ENOXAPARIN 40 MG/0.4 ML SYG SC ×2 (08:57→21:24)
[2018-11-12] MEDS: COLISTIMETHATE 75 MG in SOD CHLORIDE 0.9% 100 ML IVPB ×2 (09:56→21:15)
[2018-11-13] MEDS: MIDAZOLAM (DRIP) 50 mg/50 mL 50 ML IV ×3 (00:31→21:38)
[2018-11-13] MEDS: METHYLPREDNISOLONE 40 MG INJ IV ×5 (00:31→23:12)
[2018-11-13] MEDS: PROPOFOL 100 ML IV ×9 (01:39→21:38)
[2018-11-13 05:08] LABS: ADD MAN DIFF? NO
[2018-11-13 05:10] LABS: ABNORMAL IP MESSAGE 1; BASOPHILS % 0.1 % (0.0-2.0); HEMATOCRIT 41.6 % (42.0-52.0); HEMOGLOBIN 11.2 g/dl (14.0-18.0); LYMPHOCYTES # 0.9 10^3/ul (0.8-2.9); LYMPHOCYTES % 4.9 % (15.0-51.0); MEAN CORPUSCULAR HEMOGLOBIN 22.8 pg (29.0-33.0); MEAN CORPUSCULAR HGB CONC 26.9 g/dl (32.0-37.0); MEAN CORPUSCULAR VOLUME 84.7 fl (82.0-101.0); MEAN PLATELET VOLUME 10.6 fl (7.4-10.4); MONOCYTE # 1.7 10^3/ul (0.3-0.9); NEUTROPHIL # 15.7 10^3/ul (1.6-7.5); NEUTROPHILS % 85.2 % (39.0-77.0); PLATELET COUNT 282 10^3/UL (140-415); POSITIVE DIFF @See below; RED BLOOD COUNT 4.91 10^6/ul (4.70-6.10); RED CELL DISTRIBUTION WIDTH 15.8 % (11.5-14.5)
[2018-11-13 05:10] LABS: WHITE BLOOD COUNT 18.5 10^3/ul (4.8-10.8)
[2018-11-13 05:31] LABS: ANION GAP 3 (5-13); BLOOD UREA NITROGEN 37 mg/dl (7-20); CALCIUM 8.9 mg/dl (8.4-10.2); CARBON DIOXIDE 38 mmol/L (21-31); CHLORIDE 99 mmol/L (97-110); Estimated GFR > 60 mL/min (>60); GLUCOSE 142 mg/dl (70-220); POTASSIUM 4.5 mmol/L (3.5-5.1); SODIUM 140 mmol/L (135-144)
[2018-11-13 05:35] LABS: PHOSPHORUS 4.8 mg/dl (2.5-4.9)
[2018-11-13 05:35] LABS: MAGNESIUM 2.1 mg/dl (1.7-2.5)
[2018-11-13] MEDS: FAMOTIDINE 20 MG TAB GTB ×2 (08:10→21:05)
[2018-11-13] MEDS: NAPHAZOLINE 0.012% 15 ML OPH BOTH EYES ×4 (08:10→21:05)
[2018-11-13] MEDS: COLISTIMETHATE 75 MG in SOD CHLORIDE 0.9% 100 ML IVPB ×2 (08:10→21:05)
[2018-11-13] MEDS: ZYVOX 600 MG TAB PO ×2 (08:10→21:05)
[2018-11-13] MEDS: POLYETHYLENE GLYCOL 17 GM PACKET GTB (08:11)
[2018-11-13] MEDS: DOCUSATE SODIUM 10 MG/ML (10ML CUP) NGT ×2 (08:11→21:00)
[2018-11-13] MEDS: ENOXAPARIN 40 MG/0.4 ML SYG SC ×2 (08:23→21:15)
[2018-11-13] MEDS: FENTAnyl (DRIP) 1000 mcg/100mL 100 ML IV (16:25)
[2018-11-14] MEDS: PROPOFOL 100 ML IV ×10 (00:21→23:12)
[2018-11-14 05:17] LABS: ADD MAN DIFF? NO
[2018-11-14 05:21] LABS: WHITE BLOOD COUNT 17.1 10^3/ul (4.8-10.8)
[2018-11-14 05:21] LABS: ABNORMAL IP MESSAGE 1; BASOPHILS % 0.1 % (0.0-2.0); HEMATOCRIT 40.4 % (42.0-52.0); HEMOGLOBIN 10.8 g/dl (14.0-18.0); LYMPHOCYTES # 1.1 10^3/ul (0.8-2.9); LYMPHOCYTES % 6.2 % (15.0-51.0); MEAN CORPUSCULAR HEMOGLOBIN 22.5 pg (29.0-33.0); MEAN CORPUSCULAR HGB CONC 26.7 g/dl (32.0-37.0); MEAN CORPUSCULAR VOLUME 84.3 fl (82.0-101.0); MEAN PLATELET VOLUME 9.6 fl (7.4-10.4); MONOCYTE # 1.1 10^3/ul (0.3-0.9); MONOCYTES % 6.5 % (0.0-11.0); NEUTROPHIL # 14.8 10^3/ul (1.6-7.5); NEUTROPHILS % 86.3 % (39.0-77.0); PLATELET COUNT 313 10^3/UL (140-415); POSITIVE DIFF @See below; RED BLOOD COUNT 4.79 10^6/ul (4.70-6.10); RED CELL DISTRIBUTION WIDTH 15.9 % (11.5-14.5)
[2018-11-14] MEDS: METHYLPREDNISOLONE 40 MG INJ IV ×4 (05:27→23:11)
[2018-11-14 05:44] LABS: ANION GAP 1 (5-13); BLOOD UREA NITROGEN 36 mg/dl (7-20); CALCIUM 9.1 mg/dl (8.4-10.2); CHLORIDE 99 mmol/L (97-110); CREATININE 0.62 mg/dl (0.61-1.24); Estimated GFR > 60 mL/min (>60); GLUCOSE 125 mg/dl (70-220); POTASSIUM 4.5 mmol/L (3.5-5.1); SODIUM 140 mmol/L (135-144)
[2018-11-14 05:45] LABS: MAGNESIUM 2.1 mg/dl (1.7-2.5)
[2018-11-14 05:45] LABS: PHOSPHORUS 3.9 mg/dl (2.5-4.9)
[2018-11-14 05:47] LABS: CARBON DIOXIDE 40 mmol/L (21-31)
[2018-11-14] MEDS: MIDAZOLAM (DRIP) 50 mg/50 mL 50 ML IV ×3 (06:26→22:03)
[2018-11-14] MEDS ORDERED: ASPIRIN 300 MG SUPP PR (08:01)
[2018-11-14] MEDS: ENOXAPARIN 40 MG/0.4 ML SYG SC ×3 (09:00→20:52)
[2018-11-14] MEDS: DOCUSATE SODIUM 10 MG/ML (10ML CUP) NGT ×2 (09:34→20:47)
[2018-11-14] MEDS: ZYVOX 600 MG TAB PO (09:35)
[2018-11-14] MEDS: NAPHAZOLINE 0.012% 15 ML OPH BOTH EYES ×4 (09:35→20:46)
[2018-11-14] MEDS: FAMOTIDINE 20 MG TAB GTB ×2 (09:35→20:46)
[2018-11-14] MEDS: ACETAMINOPHEN 650MG/20.3ML CUP NGT (09:35)
[2018-11-14] MEDS: POLYETHYLENE GLYCOL 17 GM PACKET GTB (09:35)
[2018-11-14] MEDS: COLISTIMETHATE 75 MG in SOD CHLORIDE 0.9% 100 ML IVPB ×2 (09:51→20:46)
[2018-11-14] MEDS: FENTAnyl (DRIP) 1000 mcg/100mL 100 ML IV (12:47)
[2018-11-14] MEDS: SCOPOLAMINE 1.5 MG PATCH TRANSDERM (20:46)
[2018-11-15] MEDS: PROPOFOL 100 ML IV ×9 (01:30→22:00)
[2018-11-15] MEDS: ACETAMINOPHEN 650MG/20.3ML CUP NGT (03:02)
[2018-11-15 05:11] LABS: ADD MAN DIFF? NO
[2018-11-15 05:27] LABS: ABNORMAL IP MESSAGE 1; BASOPHILS % 0.1 % (0.0-2.0); HEMATOCRIT 39.4 % (42.0-52.0); HEMOGLOBIN 10.9 g/dl (14.0-18.0); LYMPHOCYTES # 0.9 10^3/ul (0.8-2.9); LYMPHOCYTES % 6.7 % (15.0-51.0); MEAN CORPUSCULAR HEMOGLOBIN 23.3 pg (29.0-33.0); MEAN CORPUSCULAR HGB CONC 27.7 g/dl (32.0-37.0); MEAN CORPUSCULAR VOLUME 84.2 fl (82.0-101.0); MEAN PLATELET VOLUME 9.4 fl (7.4-10.4); MONOCYTE # 0.9 10^3/ul (0.3-0.9); MONOCYTES % 6.1 % (0.0-11.0); NEUTROPHILS % 86.2 % (39.0-77.0); PLATELET COUNT 331 10^3/UL (140-415); POSITIVE DIFF @See below; RED BLOOD COUNT 4.68 10^6/ul (4.70-6.10); RED CELL DISTRIBUTION WIDTH 16.6 % (11.5-14.5)
[2018-11-15 05:36] LABS: INR 1.04; PROTIME 13.7 Sec (11.9-14.9); PT RATIO 1.1
[2018-11-15] MEDS: METHYLPREDNISOLONE 40 MG INJ IV ×4 (06:06→23:35)
[2018-11-15 06:07] LABS: BLOOD UREA NITROGEN 35 mg/dl (7-20); CALCIUM 8.7 mg/dl (8.4-10.2); CHLORIDE 100 mmol/L (97-110); CREATININE 0.66 mg/dl (0.61-1.24); Estimated GFR > 60 mL/min (>60); GLUCOSE 126 mg/dl (70-220); MAGNESIUM 2.1 mg/dl (1.7-2.5); POTASSIUM 4.1 mmol/L (3.5-5.1); SODIUM 140 mmol/L (135-144)
[2018-11-15] MEDS: MIDAZOLAM (DRIP) 50 mg/50 mL 50 ML IV ×2 (06:53→18:53)
[2018-11-15] MEDS: FENTAnyl (DRIP) 1000 mcg/100mL 100 ML IV ×2 (06:55→21:28)
[2018-11-15 07:28] LABS: ANION GAP 5 (5-13)
[2018-11-15 07:34] LABS: CARBON DIOXIDE 35 mmol/L (21-31)
[2018-11-15] MEDS: COLISTIMETHATE 75 MG in SOD CHLORIDE 0.9% 100 ML IVPB ×2 (08:30→21:30)
[2018-11-15] MEDS: ENOXAPARIN 40 MG/0.4 ML SYG SC ×2 (08:32→21:32)
[2018-11-15] MEDS: NAPHAZOLINE 0.012% 15 ML OPH BOTH EYES ×4 (08:33→21:30)
[2018-11-15] MEDS: DOCUSATE SODIUM 10 MG/ML (10ML CUP) NGT ×2 (08:51→21:30)
[2018-11-15] MEDS: FAMOTIDINE 20 MG TAB GTB ×2 (08:51→21:30)
[2018-11-15] MEDS: POLYETHYLENE GLYCOL 17 GM PACKET GTB (08:51)
[2018-11-15] MEDS ORDERED: ROCURONIUM 50 MG INJ (13:05)
[2018-11-15] MEDS: FLUCONAZOLE 100 MG TAB PO (15:53)
[2018-11-16] MEDS: PROPOFOL 100 ML IV ×9 (00:52→22:22)
[2018-11-16] MEDS: MIDAZOLAM (DRIP) 50 mg/50 mL 50 ML IV ×4 (03:39→21:34)
[2018-11-16 05:20] LABS: ADD MAN DIFF? NO
[2018-11-16 05:38] LABS: ABNORMAL IP MESSAGE 1; BASOPHILS % 0.1 % (0.0-2.0); HEMATOCRIT 40.5 % (42.0-52.0); HEMOGLOBIN 11.2 g/dl (14.0-18.0); LYMPHOCYTES # 0.7 10^3/ul (0.8-2.9); LYMPHOCYTES % 4.5 % (15.0-51.0); MEAN CORPUSCULAR HEMOGLOBIN 23.2 pg (29.0-33.0); MEAN CORPUSCULAR HGB CONC 27.7 g/dl (32.0-37.0); MEAN PLATELET VOLUME 9.8 fl (7.4-10.4); MONOCYTE # 0.9 10^3/ul (0.3-0.9); MONOCYTES % 6.3 % (0.0-11.0); NEUTROPHIL # 13.1 10^3/ul (1.6-7.5); NEUTROPHILS % 88.2 % (39.0-77.0); PLATELET COUNT 360 10^3/UL (140-415); POSITIVE DIFF @See below; RED BLOOD COUNT 4.82 10^6/ul (4.70-6.10); RED CELL DISTRIBUTION WIDTH 16.5 % (11.5-14.5)
[2018-11-16 05:38] LABS: WHITE BLOOD COUNT 14.8 10^3/ul (4.8-10.8)
[2018-11-16 05:54] LABS: BLOOD UREA NITROGEN 36 mg/dl (7-20); CALCIUM 9.5 mg/dl (8.4-10.2); CHLORIDE 96 mmol/L (97-110); CREATININE 0.78 mg/dl (0.61-1.24); Estimated GFR > 60 mL/min (>60); GLUCOSE 132 mg/dl (70-220); POTASSIUM 4.2 mmol/L (3.5-5.1); SODIUM 142 mmol/L (135-144)
[2018-11-16] MEDS: METHYLPREDNISOLONE 40 MG INJ IV ×4 (05:55→23:54)
[2018-11-16 06:04] LABS: ANION GAP 10 (5-13)
[2018-11-16 06:05] LABS: CARBON DIOXIDE 36 mmol/L (21-31)
[2018-11-16 07:43] LABS: AADO2 Arterial 129.1 mmHg (7.0-24.0); Allen Test ACCEPTAB; Arterial Base Excess 8.5 mmol/L (-3.0-3); Arterial Blood Gas Oxygen Sat 93.3 mmHG (95.0-98.0); Arterial Fraction of Oxyhgb 92.2 % (93.0-99.0); Arterial HCO3 36.9 mmol/L (22.0-26.0); Arterial MetHb 0.2 % (0.0-1.5); Arterial pCO2 71.2 mmhg (35-45); MODE VENT - AC; Site Right Radial
[2018-11-16] MEDS: DOCUSATE SODIUM 10 MG/ML (10ML CUP) NGT ×2 (08:16→21:04)
[2018-11-16] MEDS: POLYETHYLENE GLYCOL 17 GM PACKET GTB (08:16)
[2018-11-16] MEDS: FAMOTIDINE 20 MG TAB GTB ×2 (08:38→21:04)
[2018-11-16] MEDS: COLISTIMETHATE 75 MG in SOD CHLORIDE 0.9% 100 ML IVPB ×2 (08:38→21:05)
[2018-11-16] MEDS: FLUCONAZOLE 100 MG TAB PO (08:38)
[2018-11-16] MEDS: NAPHAZOLINE 0.012% 15 ML OPH BOTH EYES ×4 (08:38→21:05)
[2018-11-16] MEDS: ENOXAPARIN 40 MG/0.4 ML SYG SC ×2 (08:39→21:06)
[2018-11-16] MEDS: FENTAnyl (DRIP) 1000 mcg/100mL 100 ML IV ×2 (09:38→21:38)
[2018-11-16] MEDS: ACETAMINOPHEN 650MG/20.3ML CUP NGT ×2 (16:36→22:23)
[2018-11-16] MEDS ORDERED: ROCURONIUM 50 MG INJ (17:09)
[2018-11-16] MEDS ORDERED: FENTAnyl 50 MCG/ML VIAL (17:10)
[2018-11-16] MEDS ORDERED: ETOMIDATE 20 MG INJ (17:11)
[2018-11-16] MEDS ORDERED: CEFAZOLIN 1 GM INJ (17:11)
[2018-11-16] MEDS ORDERED: MIDAZOLAM 1 MG/ML 2 ML INJ (17:11)
[2018-11-16] MEDS ORDERED: ONDANSETRON 4 MG INJ (17:16)
[2018-11-16] MEDS: SOD CHLORIDE 0.9% 1,000 ML IV (18:17)
[2018-11-16] MEDS ORDERED: PHENYLephrine (100 MCG/ML) 5ML SYG (18:30)
[2018-11-16] MEDS: LIDOCAINE 1%/EPI (1:100,000) (MDV) 20 ML (18:42)
[2018-11-17] MEDS: PROPOFOL 100 ML IV ×6 (01:30→23:42)
[2018-11-17 04:34] LABS: ADD MAN DIFF? NO
[2018-11-17 04:42] LABS: WHITE BLOOD COUNT 17.4 10^3/ul (4.8-10.8)
[2018-11-17 04:42] LABS: ABNORMAL IP MESSAGE 1; BASOPHILS % 0.1 % (0.0-2.0); HEMATOCRIT 39.7 % (42.0-52.0); HEMOGLOBIN 10.6 g/dl (14.0-18.0); LYMPHOCYTES # 0.7 10^3/ul (0.8-2.9); LYMPHOCYTES % 4.1 % (15.0-51.0); MEAN CORPUSCULAR HEMOGLOBIN 22.9 pg (29.0-33.0); MEAN CORPUSCULAR HGB CONC 26.7 g/dl (32.0-37.0); MEAN CORPUSCULAR VOLUME 85.7 fl (82.0-101.0); MEAN PLATELET VOLUME 9.1 fl (7.4-10.4); MONOCYTE # 1.6 10^3/ul (0.3-0.9); MONOCYTES % 9.3 % (0.0-11.0); NEUTROPHILS % 85.8 % (39.0-77.0); PLATELET COUNT 333 10^3/UL (140-415); POSITIVE DIFF @See below; RED BLOOD COUNT 4.63 10^6/ul (4.70-6.10); RED CELL DISTRIBUTION WIDTH 16.5 % (11.5-14.5)
[2018-11-17 04:57] LABS: BLOOD UREA NITROGEN 33 mg/dl (7-20); CALCIUM 9.4 mg/dl (8.4-10.2); CHLORIDE 102 mmol/L (97-110); CREATININE 0.77 mg/dl (0.61-1.24); Estimated GFR > 60 mL/min (>60); GLUCOSE 142 mg/dl (70-220); MAGNESIUM 2.2 mg/dl (1.7-2.5); PHOSPHORUS 4.7 mg/dl (2.5-4.9); POTASSIUM 4.4 mmol/L (3.5-5.1); SODIUM 143 mmol/L (135-144)
[2018-11-17 05:04] LABS: ANION GAP 2 (5-13)
[2018-11-17 05:07] LABS: CARBON DIOXIDE 39 mmol/L (21-31)
[2018-11-17] MEDS: METHYLPREDNISOLONE 40 MG INJ IV ×2 (05:07→20:50)
[2018-11-17] MEDS: NAPHAZOLINE 0.012% 15 ML OPH BOTH EYES ×4 (08:50→20:50)
[2018-11-17] MEDS: POLYETHYLENE GLYCOL 17 GM PACKET GTB (08:51)
[2018-11-17] MEDS: DOCUSATE SODIUM 10 MG/ML (10ML CUP) NGT ×2 (08:51→20:51)
[2018-11-17] MEDS: COLISTIMETHATE 75 MG in SOD CHLORIDE 0.9% 100 ML IVPB ×2 (08:51→20:50)
[2018-11-17] MEDS: FAMOTIDINE 20 MG TAB GTB ×2 (08:51→20:53)
[2018-11-17] MEDS: FLUCONAZOLE 100 MG TAB PO (08:51)
[2018-11-17] MEDS: ENOXAPARIN 40 MG/0.4 ML SYG SC ×2 (08:54→20:53)
[2018-11-17] MEDS: MIDAZOLAM (DRIP) 50 mg/50 mL 50 ML IV (11:49)
[2018-11-17] MEDS: FENTAnyl (DRIP) 1000 mcg/100mL 100 ML IV (13:42)
[2018-11-18] MEDS: PROPOFOL 100 ML IV ×4 (03:57→21:30)
[2018-11-18 04:56] LABS: ABNORMAL IP MESSAGE 1; HEMATOCRIT 40.7 % (42.0-52.0); HEMOGLOBIN 10.9 g/dl (14.0-18.0); MEAN CORPUSCULAR HEMOGLOBIN 22.7 pg (29.0-33.0); MEAN CORPUSCULAR HGB CONC 26.8 g/dl (32.0-37.0); MEAN CORPUSCULAR VOLUME 84.8 fl (82.0-101.0); MEAN PLATELET VOLUME 9.3 fl (7.4-10.4); PLATELET COUNT 357 10^3/UL (140-415); POSITIVE DIFF @See below; RED CELL DISTRIBUTION WIDTH 17.2 % (11.5-14.5)
[2018-11-18 04:56] LABS: WHITE BLOOD COUNT 26.2 10^3/ul (4.8-10.8)
[2018-11-18 05:10] LABS: ADD MAN DIFF? YES
[2018-11-18] MEDS: FENTAnyl (DRIP) 1000 mcg/100mL 100 ML IV ×2 (05:31→16:48)
[2018-11-18 05:49] LABS: ANION GAP 5 (5-13); BLOOD UREA NITROGEN 29 mg/dl (7-20); CALCIUM 9.3 mg/dl (8.4-10.2); CARBON DIOXIDE 38 mmol/L (21-31); CHLORIDE 100 mmol/L (97-110); CREATININE 0.59 mg/dl (0.61-1.24); Estimated GFR > 60 mL/min (>60); GLUCOSE 132 mg/dl (70-220); POTASSIUM 3.6 mmol/L (3.5-5.1); SODIUM 143 mmol/L (135-144)
[2018-11-18] MEDS: METHYLPREDNISOLONE 40 MG INJ IV ×2 (07:57→20:22)
[2018-11-18] MEDS: NAPHAZOLINE 0.012% 15 ML OPH BOTH EYES ×4 (07:57→20:22)
[2018-11-18] MEDS: ACETAMINOPHEN 650MG/20.3ML CUP NGT (07:57)
[2018-11-18] MEDS: FAMOTIDINE 20 MG TAB GTB ×2 (07:58→20:22)
[2018-11-18] MEDS: COLISTIMETHATE 75 MG in SOD CHLORIDE 0.9% 100 ML IVPB (07:58)
[2018-11-18] MEDS: FLUCONAZOLE 100 MG TAB PO (07:58)
[2018-11-18] MEDS: ENOXAPARIN 40 MG/0.4 ML SYG SC ×2 (08:08→20:27)
[2018-11-18 08:12] LABS: ANISOCYTOSIS 1+ (0-0); BAND NEUTROPHILS #M 1.3 10^3/ul (0.0-0.6); BAND NEUTROPHILS % (M) 5 % (0-4); HYPOCHROMASIA 1+ (0-0); LYMPHOCYTES #M 0.5 10^3/ul (0.8-2.9); LYMPHOCYTES % (M) 2 % (15-51); MONOCYTES % (M) 4 % (0-11); PLATELET ESTIMATE NORMAL; POIKILOCYTOSIS 1+ (0-0); POLYCHROMASIA 1+ (0-0); SEG NEUT #M 23.7 10^3/ul (1.6-7.5); SEGMENTED NEUTROPHILS (M) % 89 % (39-77); SMUDGE%M 15 % (0-0); STOMATOCYTES 1+ (0-0)
[2018-11-18] MEDS: DOCUSATE SODIUM 10 MG/ML (10ML CUP) NGT ×2 (08:57→20:22)
[2018-11-18] MEDS: POLYETHYLENE GLYCOL 17 GM PACKET GTB (08:57)
[2018-11-18] MEDS: QUETIAPINE 25 MG TAB GTB ×2 (12:35→20:22)
[2018-11-18] MEDS: metroNIDAZOLE 500 MG TAB NGT ×2 (14:01→22:00)
[2018-11-18] MEDS: COLISTIMETHATE 200 MG in SOD CHLORIDE 0.9% 100 ML IVPB (20:24)
[2018-11-18] MEDS: IPRATROPIUM (HFA) 12.9 GM INHALER INH (21:18)
[2018-11-18] MEDS: LEVALBUTEROL (HFA) 15 GM INHALER INH (21:18)
[2018-11-19] MEDS: IPRATROPIUM (HFA) 12.9 GM INHALER INH ×2 (01:12→05:08)
[2018-11-19] MEDS: LEVALBUTEROL (HFA) 15 GM INHALER INH ×2 (01:12→05:08)
[2018-11-19] MEDS: PROPOFOL 100 ML IV ×5 (01:49→21:38)
[2018-11-19] MEDS: FENTAnyl (DRIP) 1000 mcg/100mL 100 ML IV ×2 (03:22→15:24)
[2018-11-19] MEDS: ACETAMINOPHEN 650MG/20.3ML CUP NGT ×3 (04:18→20:16)
[2018-11-19 04:55] LABS: ADD MAN DIFF? NO
[2018-11-19 04:57] LABS: AADO2 Arterial 146.1 mmHg (7.0-24.0); ABNORMAL IP MESSAGE 1; Allen Test ACCEPTAB; Arterial Blood Gas Oxygen Sat 95.3 mmHG (95.0-98.0); Arterial COHb 1.7 % (0.0-3.0); Arterial Fraction of Oxyhgb 93.5 % (93.0-99.0); Arterial MetHb 0.2 % (0.0-1.5); Arterial pCO2 55.8 mmhg (35-45); BASOPHILS % 0.2 % (0.0-2.0); Blood Gas PS 10; HEMATOCRIT 38.8 % (42.0-52.0); HEMOGLOBIN 10.5 g/dl (14.0-18.0); LYMPHOCYTES # 0.9 10^3/ul (0.8-2.9); LYMPHOCYTES % 4.1 % (15.0-51.0); MEAN CORPUSCULAR HEMOGLOBIN 23.1 pg (29.0-33.0); MEAN CORPUSCULAR HGB CONC 27.1 g/dl (32.0-37.0); MEAN CORPUSCULAR VOLUME 85.3 fl (82.0-101.0); MEAN PLATELET VOLUME 9.1 fl (7.4-10.4); MODE VENT - CPAP; MONOCYTE # 1.8 10^3/ul (0.3-0.9); MONOCYTES % 7.8 % (0.0-11.0); NEUTROPHIL # 19.4 10^3/ul (1.6-7.5); NEUTROPHILS % 86.2 % (39.0-77.0); PLATELET COUNT 324 10^3/UL (140-415); POSITIVE DIFF @See below; RED BLOOD COUNT 4.55 10^6/ul (4.70-6.10); RED CELL DISTRIBUTION WIDTH 17.5 % (11.5-14.5); Site Right Radial
[2018-11-19 04:57] LABS: WHITE BLOOD COUNT 22.5 10^3/ul (4.8-10.8)
[2018-11-19] MEDS: metroNIDAZOLE 500 MG TAB NGT ×3 (05:20→21:38)
[2018-11-19 05:30] LABS: BLOOD UREA NITROGEN 23 mg/dl (7-20); CALCIUM 9.2 mg/dl (8.4-10.2); CHLORIDE 102 mmol/L (97-110); CREATININE 0.53 mg/dl (0.61-1.24); Estimated GFR > 60 mL/min (>60); GLUCOSE 123 mg/dl (70-220); PHOSPHORUS 3.1 mg/dl (2.5-4.9); POTASSIUM 3.6 mmol/L (3.5-5.1); SODIUM 143 mmol/L (135-144)
[2018-11-19 05:36] LABS: ANION GAP 3 (5-13)
[2018-11-19] MEDS: POLYETHYLENE GLYCOL 17 GM PACKET GTB (09:00)
[2018-11-19] MEDS: DOCUSATE SODIUM 10 MG/ML (10ML CUP) NGT ×2 (10:00→20:16)
[2018-11-19] MEDS: METHYLPREDNISOLONE 40 MG INJ IV ×2 (10:35→20:14)
[2018-11-19] MEDS: FAMOTIDINE 20 MG TAB GTB ×2 (10:36→20:15)
[2018-11-19] MEDS: FLUCONAZOLE 100 MG TAB PO (10:36)
[2018-11-19] MEDS: QUETIAPINE 25 MG TAB GTB (10:36)
[2018-11-19] MEDS: COLISTIMETHATE 200 MG in SOD CHLORIDE 0.9% 100 ML IVPB ×2 (10:37→20:16)
[2018-11-19] MEDS: NAPHAZOLINE 0.012% 15 ML OPH BOTH EYES ×4 (10:37→20:15)
[2018-11-19] MEDS: ENOXAPARIN 40 MG/0.4 ML SYG SC ×2 (10:38→20:25)
[2018-11-19] MEDS: METOCLOPRAMIDE 10 MG INJ IV (20:14)
[2018-11-19] MEDS: QUETIAPINE 100 MG TAB GTB (20:15)
[2018-11-20] MEDS: FENTAnyl (DRIP) 1000 mcg/100mL 100 ML IV (00:37)
[2018-11-20] MEDS: LORAZEPAM 2 MG INJ IV ×4 (02:22→22:52)
[2018-11-20 04:52] LABS: ADD MAN DIFF? NO
[2018-11-20 04:59] LABS: ABNORMAL IP MESSAGE 1; BASOPHILS % 0.2 % (0.0-2.0); HEMATOCRIT 40.2 % (42.0-52.0); HEMOGLOBIN 10.7 g/dl (14.0-18.0); LYMPHOCYTES # 0.8 10^3/ul (0.8-2.9); LYMPHOCYTES % 4.4 % (15.0-51.0); MEAN CORPUSCULAR HGB CONC 26.6 g/dl (32.0-37.0); MEAN CORPUSCULAR VOLUME 86.3 fl (82.0-101.0); MEAN PLATELET VOLUME 9.3 fl (7.4-10.4); MONOCYTE # 1.2 10^3/ul (0.3-0.9); MONOCYTES % 6.6 % (0.0-11.0); NEUTROPHIL # 15.4 10^3/ul (1.6-7.5); NEUTROPHILS % 87.4 % (39.0-77.0); PLATELET COUNT 345 10^3/UL (140-415); POSITIVE DIFF @See below; RED BLOOD COUNT 4.66 10^6/ul (4.70-6.10); RED CELL DISTRIBUTION WIDTH 18.1 % (11.5-14.5)
[2018-11-20 04:59] LABS: WHITE BLOOD COUNT 17.6 10^3/ul (4.8-10.8)
[2018-11-20 05:13] LABS: AADO2 Arterial 146.5 mmHg (7.0-24.0); Allen Test ACCEPTAB; Arterial Base Excess 8.9 mmol/L (-3.0-3); Arterial Blood Gas Oxygen Sat 94.7 mmHG (95.0-98.0); Arterial Fraction of Oxyhgb 92.4 % (93.0-99.0); Arterial HCO3 35.5 mmol/L (22.0-26.0); Arterial MetHb 0.4 % (0.0-1.5); Arterial pCO2 57.5 mmhg (35-45); MODE TRACH COLLAR; Site Right Radial
[2018-11-20 05:19] LABS: BLOOD UREA NITROGEN 24 mg/dl (7-20); CALCIUM 9.3 mg/dl (8.4-10.2); CHLORIDE 101 mmol/L (97-110); CREATININE 0.63 mg/dl (0.61-1.24); Estimated GFR > 60 mL/min (>60); GLUCOSE 120 mg/dl (70-220); POTASSIUM 3.7 mmol/L (3.5-5.1); SODIUM 144 mmol/L (135-144)
[2018-11-20 05:32] LABS: ANION GAP 4 (5-13); CARBON DIOXIDE 39 mmol/L (21-31)
[2018-11-20] MEDS: metroNIDAZOLE 500 MG TAB NGT (05:44)
[2018-11-20] MEDS: POLYETHYLENE GLYCOL 17 GM PACKET GTB (09:00)
[2018-11-20] MEDS: DOCUSATE SODIUM 10 MG/ML (10ML CUP) NGT ×2 (09:00→20:18)
[2018-11-20] MEDS: QUETIAPINE 100 MG TAB GTB ×2 (09:23→20:18)
[2018-11-20] MEDS: METOCLOPRAMIDE 10 MG INJ IV ×2 (09:23→20:18)
[2018-11-20] MEDS: ACETAMINOPHEN 650MG/20.3ML CUP NGT (09:23)
[2018-11-20] MEDS: FLUCONAZOLE 100 MG TAB PO (09:24)
[2018-11-20] MEDS: FAMOTIDINE 20 MG TAB GTB ×2 (09:24→20:18)
[2018-11-20] MEDS: NAPHAZOLINE 0.012% 15 ML OPH BOTH EYES ×4 (09:25→20:18)
[2018-11-20] MEDS: METHYLPREDNISOLONE 40 MG INJ IV ×2 (09:25→20:17)
[2018-11-20] MEDS: morphine 2 MG INJ IV ×2 (09:27→14:24)
[2018-11-20] MEDS: ENOXAPARIN 40 MG/0.4 ML SYG SC ×2 (09:28→20:27)
[2018-11-20] MEDS: COLISTIMETHATE 200 MG in SOD CHLORIDE 0.9% 100 ML IVPB ×2 (09:29→20:18)
[2018-11-20] MEDS: FUROSEMIDE 20 MG INJ IV (11:59)
[2018-11-21] MEDS: PROPOFOL 100 ML IV ×2 (05:12→17:20)
[2018-11-21] MEDS: ACETAMINOPHEN 650MG/20.3ML CUP NGT ×3 (05:13→21:28)
[2018-11-21 05:29] LABS: ADD MAN DIFF? NO
[2018-11-21 05:37] LABS: WHITE BLOOD COUNT 14.6 10^3/ul (4.8-10.8)
[2018-11-21 05:37] LABS: ABNORMAL IP MESSAGE 1; BASOPHILS % 0.1 % (0.0-2.0); HEMATOCRIT 40.2 % (42.0-52.0); LYMPHOCYTES # 1.2 10^3/ul (0.8-2.9); LYMPHOCYTES % 8.1 % (15.0-51.0); MEAN CORPUSCULAR HEMOGLOBIN 23.4 pg (29.0-33.0); MEAN CORPUSCULAR HGB CONC 27.4 g/dl (32.0-37.0); MEAN CORPUSCULAR VOLUME 85.5 fl (82.0-101.0); MEAN PLATELET VOLUME 9.2 fl (7.4-10.4); MONOCYTE # 1.2 10^3/ul (0.3-0.9); MONOCYTES % 8.5 % (0.0-11.0); NEUTROPHILS % 82.1 % (39.0-77.0); PLATELET COUNT 332 10^3/UL (140-415); POSITIVE DIFF @See below; RED CELL DISTRIBUTION WIDTH 17.8 % (11.5-14.5)
[2018-11-21 06:26] LABS: BLOOD UREA NITROGEN 29 mg/dl (7-20); CALCIUM 9.4 mg/dl (8.4-10.2); CHLORIDE 99 mmol/L (97-110); CREATININE 0.51 mg/dl (0.61-1.24); Estimated GFR > 60 mL/min (>60); GLUCOSE 125 mg/dl (70-220); MAGNESIUM 1.8 mg/dl (1.7-2.5); PHOSPHORUS 3.3 mg/dl (2.5-4.9); POTASSIUM 3.7 mmol/L (3.5-5.1); SODIUM 144 mmol/L (135-144)
[2018-11-21 06:42] LABS: ANION GAP 2 (5-13); CARBON DIOXIDE 43 mmol/L (21-31)
[2018-11-21] MEDS: morphine 2 MG INJ IV (07:39)
[2018-11-21 08:05] LABS: ANISOCYTOSIS 1+ (0-0); BAND NEUTROPHILS #M 0.2 10^3/ul (0.0-0.6); BAND NEUTROPHILS % (M) 2 % (0-4); GIANT THROMBO% (M) 1 % (0-0); LYMPHOCYTES #M 0.5 10^3/ul (0.8-2.9); LYMPHOCYTES % (M) 4 % (15-51); MICROCYTOSIS 1+ (0-0); MONOCYTES % (M) 7 % (0-11); PLATELET ESTIMATE NORMAL; POLYCHROMASIA 3+ (0-0); REACTIVE LYMPHOCYTES #M 0.4 10^3/ul (0.0-0.0); REACTIVE LYMPHOCYTES% (M) 3 % (0-0); SEG NEUT #M 12.3 10^3/ul (1.6-7.5); SEGMENTED NEUTROPHILS (M) % 84 % (39-77); SMUDGE%M 4 % (0-0); STOMATOCYTES 2+ (0-0)
[2018-11-21] MEDS: DOCUSATE SODIUM 10 MG/ML (10ML CUP) NGT (08:24)
[2018-11-21] MEDS: POLYETHYLENE GLYCOL 17 GM PACKET GTB (08:24)
[2018-11-21] MEDS: METHYLPREDNISOLONE 40 MG INJ IV ×2 (08:49→21:28)
[2018-11-21] MEDS: COLISTIMETHATE 200 MG in SOD CHLORIDE 0.9% 100 ML IVPB ×2 (08:49→21:47)
[2018-11-21] MEDS: NAPHAZOLINE 0.012% 15 ML OPH BOTH EYES ×4 (08:50→21:29)
[2018-11-21] MEDS: QUETIAPINE 100 MG TAB GTB ×2 (08:50→21:28)
[2018-11-21] MEDS: FLUCONAZOLE 100 MG TAB PO (08:50)
[2018-11-21] MEDS: FAMOTIDINE 20 MG TAB GTB ×2 (08:50→21:28)
[2018-11-21] MEDS: METOCLOPRAMIDE 10 MG INJ IV ×2 (08:50→20:05)
[2018-11-21] MEDS: ENOXAPARIN 40 MG/0.4 ML SYG SC ×2 (08:51→21:39)
[2018-11-21] MEDS ORDERED: POLYETHYLENE GLYCOL 17 GM PACKET GTB (10:00)
[2018-11-21] MEDS ORDERED: DOCUSATE SODIUM 10 MG/ML (10ML CUP) NGT (10:00)
[2018-11-21] MEDS: LORAZEPAM 2 MG INJ IV ×2 (10:01→16:53)
[2018-11-21] MEDS: ZYVOX 600 MG TAB PO ×2 (13:34→21:28)
[2018-11-22] MEDS: LORAZEPAM 2 MG INJ IV (01:49)
[2018-11-22] MEDS: IBUPROFEN 600 MG TAB GTB (02:02)
[2018-11-22] MEDS: ACETAMINOPHEN 650MG/20.3ML CUP NGT ×2 (03:31→11:34)
[2018-11-22 05:26] LABS: ADD MAN DIFF? NO
[2018-11-22] MEDS: PROPOFOL 100 ML IV ×2 (05:30→17:30)
[2018-11-22 05:39] LABS: WHITE BLOOD COUNT 19.4 10^3/ul (4.8-10.8)
[2018-11-22 05:39] LABS: ABNORMAL IP MESSAGE 1; BASOPHILS % 0.2 % (0.0-2.0); HEMATOCRIT 39.4 % (42.0-52.0); HEMOGLOBIN 10.6 g/dl (14.0-18.0); LYMPHOCYTES # 0.8 10^3/ul (0.8-2.9); LYMPHOCYTES % 4.3 % (15.0-51.0); MEAN CORPUSCULAR HEMOGLOBIN 23.2 pg (29.0-33.0); MEAN CORPUSCULAR HGB CONC 26.9 g/dl (32.0-37.0); MEAN CORPUSCULAR VOLUME 86.4 fl (82.0-101.0); MEAN PLATELET VOLUME 9.7 fl (7.4-10.4); MONOCYTE # 1.1 10^3/ul (0.3-0.9); MONOCYTES % 5.4 % (0.0-11.0); NEUTROPHIL # 17.3 10^3/ul (1.6-7.5); NEUTROPHILS % 89.1 % (39.0-77.0); PLATELET COUNT 250 10^3/UL (140-415); POSITIVE DIFF @See below; RED BLOOD COUNT 4.56 10^6/ul (4.70-6.10); RED CELL DISTRIBUTION WIDTH 17.8 % (11.5-14.5)
[2018-11-22 05:47] LABS: BLOOD UREA NITROGEN 30 mg/dl (7-20); CALCIUM 9.4 mg/dl (8.4-10.2); CHLORIDE 96 mmol/L (97-110); CREATININE 0.62 mg/dl (0.61-1.24); Estimated GFR > 60 mL/min (>60); GLUCOSE 140 mg/dl (70-220); POTASSIUM 3.6 mmol/L (3.5-5.1); SODIUM 144 mmol/L (135-144)
[2018-11-22 05:54] LABS: ANION GAP 9 (5-13)
[2018-11-22 05:59] LABS: CARBON DIOXIDE 39 mmol/L (21-31)
[2018-11-22] MEDS: morphine 2 MG INJ IV ×2 (08:03→22:24)
[2018-11-22] MEDS: METOCLOPRAMIDE 10 MG INJ IV ×2 (08:23→21:20)
[2018-11-22] MEDS: METHYLPREDNISOLONE 40 MG INJ IV ×2 (08:23→21:17)
[2018-11-22] MEDS: NAPHAZOLINE 0.012% 15 ML OPH BOTH EYES ×4 (08:24→21:17)
[2018-11-22] MEDS: QUETIAPINE 100 MG TAB GTB ×2 (08:24→21:45)
[2018-11-22] MEDS: FLUCONAZOLE 100 MG TAB PO (08:24)
[2018-11-22] MEDS: FAMOTIDINE 20 MG TAB GTB ×2 (08:24→21:17)
[2018-11-22] MEDS: ZYVOX 600 MG TAB PO ×2 (08:24→21:17)
[2018-11-22] MEDS: ENOXAPARIN 40 MG/0.4 ML SYG SC ×2 (08:29→21:20)
[2018-11-22] MEDS: COLISTIMETHATE 200 MG in SOD CHLORIDE 0.9% 100 ML IVPB ×2 (08:32→22:01)
[2018-11-22] MEDS: VANCOMYCIN HCL 250 MG/5ML POSYG PO ×3 (09:30→18:06)
[2018-11-22] MEDS: metroNIDAZOLE 500 MG TAB NGT ×2 (14:08→21:17)
[2018-11-22] MEDS ORDERED: PANTOPRAZOLE IV 80 MG in SOD CHLORIDE 0.9% 100 ML IV (15:30)
[2018-11-23] MEDS: LORAZEPAM 2 MG INJ IV (00:44)
[2018-11-23 05:12] LABS: ADD MAN DIFF? NO
[2018-11-23 05:21] LABS: ABNORMAL IP MESSAGE 1; BASOPHIL # 0.1 10^3/ul (0.0-0.1); BASOPHILS % 0.3 % (0.0-2.0); HEMATOCRIT 43.5 % (42.0-52.0); HEMOGLOBIN 11.6 g/dl (14.0-18.0); LYMPHOCYTES # 0.7 10^3/ul (0.8-2.9); LYMPHOCYTES % 3.3 % (15.0-51.0); MEAN CORPUSCULAR HEMOGLOBIN 22.9 pg (29.0-33.0); MEAN CORPUSCULAR HGB CONC 26.7 g/dl (32.0-37.0); MEAN PLATELET VOLUME 10.1 fl (7.4-10.4); MONOCYTE # 0.6 10^3/ul (0.3-0.9); MONOCYTES % 2.7 % (0.0-11.0); NEUTROPHIL # 20.6 10^3/ul (1.6-7.5); NEUTROPHILS % 92.6 % (39.0-77.0); PLATELET COUNT 226 10^3/UL (140-415); POSITIVE DIFF @See below; RED BLOOD COUNT 5.06 10^6/ul (4.70-6.10); RED CELL DISTRIBUTION WIDTH 17.7 % (11.5-14.5)
[2018-11-23 05:21] LABS: WHITE BLOOD COUNT 22.3 10^3/ul (4.8-10.8)
[2018-11-23 05:41] LABS: BLOOD UREA NITROGEN 26 mg/dl (7-20); CALCIUM 9.5 mg/dl (8.4-10.2); CHLORIDE 93 mmol/L (97-110); CREATININE 0.64 mg/dl (0.61-1.24); Estimated GFR > 60 mL/min (>60); GLUCOSE 176 mg/dl (70-220); POTASSIUM 3.7 mmol/L (3.5-5.1); SODIUM 143 mmol/L (135-144)
[2018-11-23 05:49] LABS: ANION GAP 11 (5-13); CARBON DIOXIDE 39 mmol/L (21-31)
[2018-11-23 05:54] LABS: PHOSPHORUS 1.9 mg/dl (2.5-4.9)
[2018-11-23 05:54] LABS: MAGNESIUM 1.7 mg/dl (1.7-2.5)
[2018-11-23] MEDS: metroNIDAZOLE 500 MG TAB NGT ×3 (06:36→21:41)
[2018-11-23] MEDS: ACETAMINOPHEN 650MG/20.3ML CUP NGT (07:02)
[2018-11-23] MEDS: METHYLPREDNISOLONE 40 MG INJ IV ×2 (09:02→20:32)
[2018-11-23] MEDS: NAPHAZOLINE 0.012% 15 ML OPH BOTH EYES ×4 (09:02→20:31)
[2018-11-23] MEDS: METOCLOPRAMIDE 10 MG INJ IV ×2 (09:02→20:32)
[2018-11-23] MEDS: FLUCONAZOLE 100 MG TAB PO (09:03)
[2018-11-23] MEDS: COLISTIMETHATE 200 MG in SOD CHLORIDE 0.9% 100 ML IVPB ×2 (09:03→20:32)
[2018-11-23] MEDS: ZYVOX 600 MG TAB PO ×2 (09:03→20:32)
[2018-11-23] MEDS: FAMOTIDINE 20 MG TAB GTB ×2 (09:03→20:32)
[2018-11-23] MEDS: QUETIAPINE 100 MG TAB GTB ×2 (09:03→20:52)
[2018-11-23] MEDS: ENOXAPARIN 40 MG/0.4 ML SYG SC ×2 (09:04→20:52)
[2018-11-23] MEDS: SOD CHLORIDE 0.45% 1,000 ML IV ×2 (10:19→20:30)
[2018-11-23] MEDS: IBUPROFEN 600 MG TAB GTB (10:25)
[2018-11-23] MEDS: POTASSIUM PHOSPHATE 40 MEQ in SOD CHLORIDE 0.9% 250 ML IVPB (10:57)
[2018-11-23 11:00] LABS: CREATINE KINASE 71 IU/L (23-200)
[2018-11-23] MEDS: SCOPOLAMINE 1.5 MG PATCH TRANSDERM (11:37)
[2018-11-23] MEDS: ACETAMINOPHEN 1000MG/100ML IV 100 ML IVPB (12:37)
[2018-11-23] MEDS: PROPOFOL 100 ML IV ×2 (16:58→16:59)
[2018-11-23 21:45] LABS: AADO2 Arterial 101.4 mmHg (7.0-24.0); Allen Test ACCEPTAB; Arterial Base Excess 8.7 mmol/L (-3.0-3); Arterial Blood Gas Oxygen Sat 93.2 mmHG (95.0-98.0); Arterial COHb 1.3 % (0.0-3.0); Arterial Fraction of Oxyhgb 91.7 % (93.0-99.0); Arterial HCO3 36.3 mmol/L (22.0-26.0); Arterial MetHb 0.3 % (0.0-1.5); Arterial pCO2 65.1 mmhg (35-45); MODE TRACH COLLAR; Site Right Radial
[2018-11-24] MEDS: PROPOFOL 100 ML IV (04:53)
[2018-11-24] MEDS: metroNIDAZOLE 500 MG TAB NGT ×3 (05:46→21:32)
[2018-11-24 06:08] LABS: ABNORMAL IP MESSAGE 1; HEMATOCRIT 41.9 % (42.0-52.0); HEMOGLOBIN 11.3 g/dl (14.0-18.0); MEAN CORPUSCULAR HEMOGLOBIN 23.2 pg (29.0-33.0); MEAN PLATELET VOLUME 11.3 fl (7.4-10.4); POSITIVE DIFF @See below; RED BLOOD COUNT 4.87 10^6/ul (4.70-6.10)
[2018-11-24 06:08] LABS: WHITE BLOOD COUNT 15.4 10^3/ul (4.8-10.8)
[2018-11-24 06:30] LABS: ADD MAN DIFF? YES; PLATELET COUNT 127 10^3/UL (140-415)
[2018-11-24 06:42] LABS: ANION GAP 9 (5-13); BLOOD UREA NITROGEN 43 mg/dl (7-20); CARBON DIOXIDE 34 mmol/L (21-31); CHLORIDE 97 mmol/L (97-110); CREATININE 0.98 mg/dl (0.61-1.24); Estimated GFR > 60 mL/min (>60); GLUCOSE 186 mg/dl (70-220); POTASSIUM 3.2 mmol/L (3.5-5.1); SODIUM 140 mmol/L (135-144)
[2018-11-24] MEDS: ZYVOX 600 MG TAB PO ×2 (09:25→21:05)
[2018-11-24] MEDS: NAPHAZOLINE 0.012% 15 ML OPH BOTH EYES ×4 (09:25→21:07)
[2018-11-24] MEDS: FLUCONAZOLE 100 MG TAB PO (09:25)
[2018-11-24] MEDS: FAMOTIDINE 20 MG TAB GTB ×2 (09:25→21:05)
[2018-11-24] MEDS: METHYLPREDNISOLONE 40 MG INJ IV (09:25)
[2018-11-24] MEDS: QUETIAPINE 100 MG TAB GTB (09:25)
[2018-11-24] MEDS: METOCLOPRAMIDE 10 MG INJ IV ×2 (09:25→21:05)
[2018-11-24] MEDS: COLISTIMETHATE 200 MG in SOD CHLORIDE 0.9% 100 ML IVPB ×2 (09:53→21:05)
[2018-11-24] MEDS: ENOXAPARIN 40 MG/0.4 ML SYG SC ×2 (09:56→21:13)
[2018-11-24 10:42] LABS: PHOSPHORUS 4.5 mg/dl (2.5-4.9)
[2018-11-24 10:42] LABS: MAGNESIUM 1.9 mg/dl (1.7-2.5)
[2018-11-24 10:52] LABS: ANISOCYTOSIS 1+ (0-0); BAND NEUTROPHILS % (M) 13 % (0-4); BURR CELLS 1+ (0-0); GIANT THROMBO% (M) 2 % (0-0); HYPOCHROMASIA 2+ (0-0); LYMPHOCYTES #M 0.1 10^3/ul (0.8-2.9); LYMPHOCYTES % (M) 1 % (15-51); MICROCYTOSIS 1+ (0-0); MONOCYTE #M 0.6 10^3/ul (0.3-0.9); MONOCYTES % (M) 4 % (0-11); PLATELET ESTIMATE DECREASED; POIKILOCYTOSIS 1+ (0-0); POLYCHROMASIA 3+ (0-0); SEG NEUT #M 12.9 10^3/ul (1.6-7.5); SEGMENTED NEUTROPHILS (M) % 82 % (39-77); SMUDGE%M 2 % (0-0)
[2018-11-24] MEDS: POTASSIUM CHLORIDE 100 ML IVPB ×2 (12:32→16:08)
[2018-11-24] MEDS: FUROSEMIDE 40 MG INJ IV (18:28)
[2018-11-25] MEDS: FUROSEMIDE 40 MG INJ IV (05:32)
[2018-11-25] MEDS: metroNIDAZOLE 500 MG TAB NGT ×3 (05:32→21:12)
[2018-11-25 06:16] LABS: WHITE BLOOD COUNT 19.8 10^3/ul (4.8-10.8)
[2018-11-25 06:16] LABS: ABNORMAL IP MESSAGE 1; HEMATOCRIT 42.6 % (42.0-52.0); HEMOGLOBIN 11.6 g/dl (14.0-18.0); MEAN CORPUSCULAR HEMOGLOBIN 23.1 pg (29.0-33.0); MEAN CORPUSCULAR HGB CONC 27.2 g/dl (32.0-37.0); MEAN CORPUSCULAR VOLUME 84.7 fl (82.0-101.0); MEAN PLATELET VOLUME 11.4 fl (7.4-10.4); NUCLEATED RED BLOOD CELLS% 0.2 /100WBC (0.0-0.0); PLATELET COUNT 187 10^3/UL (140-415); POSITIVE DIFF @See below; RED BLOOD COUNT 5.03 10^6/ul (4.70-6.10); RED CELL DISTRIBUTION WIDTH 18.9 % (11.5-14.5)
[2018-11-25 06:19] LABS: ADD MAN DIFF? YES
[2018-11-25 07:01] LABS: BLOOD UREA NITROGEN 50 mg/dl (7-20); CALCIUM 10.6 mg/dl (8.4-10.2); CHLORIDE 92 mmol/L (97-110); CREATININE 1.15 mg/dl (0.61-1.24); Estimated GFR > 60 mL/min (>60); GLUCOSE 161 mg/dl (70-220); SODIUM 144 mmol/L (135-144)
[2018-11-25 07:11] LABS: ANION GAP 13 (5-13)
[2018-11-25 07:13] LABS: CARBON DIOXIDE 39 mmol/L (21-31)
[2018-11-25 07:26] LABS: ANISOCYTOSIS 1+ (0-0); BAND NEUTROPHILS #M 4.7 10^3/ul (0.0-0.6); BAND NEUTROPHILS % (M) 24 % (0-4); ERYTHROBLAST% (NRBC) (M) 1 % (0-0); LYMPHOCYTES #M 0.7 10^3/ul (0.8-2.9); LYMPHOCYTES % (M) 4 % (15-51); MONOCYTE #M 0.5 10^3/ul (0.3-0.9); MONOCYTES % (M) 3 % (0-11); PLATELET ESTIMATE NORMAL; POIKILOCYTOSIS 1+ (0-0); SEG NEUT #M 14.6 10^3/ul (1.6-7.5); SEGMENTED NEUTROPHILS (M) % 69 % (39-77); SMUDGE%M 2 % (0-0); TARGET CELLS 1+ (0-0)
[2018-11-25] MEDS: METHYLPREDNISOLONE 40 MG INJ IV (09:13)
[2018-11-25] MEDS: ZYVOX 600 MG TAB PO ×2 (09:14→21:12)
[2018-11-25] MEDS: FLUCONAZOLE 100 MG TAB PO (09:14)
[2018-11-25] MEDS: FAMOTIDINE 20 MG TAB GTB ×2 (09:14→21:11)
[2018-11-25] MEDS: METOCLOPRAMIDE 10 MG INJ IV ×2 (09:14→21:11)
[2018-11-25] MEDS: NAPHAZOLINE 0.012% 15 ML OPH BOTH EYES ×4 (09:14→21:11)
[2018-11-25] MEDS: QUETIAPINE 100 MG TAB GTB (09:14)
[2018-11-25] MEDS: COLISTIMETHATE 200 MG in SOD CHLORIDE 0.9% 100 ML IVPB ×2 (09:19→21:22)
[2018-11-25] MEDS: ENOXAPARIN 40 MG/0.4 ML SYG SC ×2 (09:38→21:13)
[2018-11-25] MEDS: LORAZEPAM 2 MG INJ IV ×2 (11:07→17:52)
[2018-11-25] MEDS: POTASSIUM CHLORIDE 50 ML IVPB ×2 (11:14→13:21)
[2018-11-26] MEDS: metroNIDAZOLE 500 MG TAB NGT ×3 (06:44→22:01)
[2018-11-26] MEDS: FUROSEMIDE 40 MG INJ IV (06:44)
[2018-11-26] MEDS: METHYLPREDNISOLONE 40 MG INJ IV (08:31)
[2018-11-26] MEDS: FLUCONAZOLE 100 MG TAB PO (08:33)
[2018-11-26] MEDS: METOCLOPRAMIDE 10 MG INJ IV ×2 (08:33→20:35)
[2018-11-26] MEDS: QUETIAPINE 100 MG TAB GTB (08:33)
[2018-11-26] MEDS: FAMOTIDINE 20 MG TAB GTB ×2 (08:33→20:36)
[2018-11-26] MEDS: ZYVOX 600 MG TAB PO ×2 (08:33→20:35)
[2018-11-26] MEDS: ENOXAPARIN 40 MG/0.4 ML SYG SC ×2 (08:39→20:51)
[2018-11-26] MEDS: NAPHAZOLINE 0.012% 15 ML OPH BOTH EYES ×4 (08:39→20:36)
[2018-11-26] MEDS: COLISTIMETHATE 200 MG in SOD CHLORIDE 0.9% 100 ML IVPB ×2 (08:49→20:34)
[2018-11-26] MEDS: SCOPOLAMINE 1.5 MG PATCH TRANSDERM (11:19)
[2018-11-27] MEDS: LORAZEPAM 2 MG INJ IV ×2 (02:12→09:17)
[2018-11-27 05:25] LABS: ADD MAN DIFF? NO
[2018-11-27 05:33] LABS: ABNORMAL IP MESSAGE 1; BASOPHIL # 0.1 10^3/ul (0.0-0.1); BASOPHILS % 0.6 % (0.0-2.0); HEMATOCRIT 42.8 % (42.0-52.0); HEMOGLOBIN 11.7 g/dl (14.0-18.0); LYMPHOCYTES # 0.6 10^3/ul (0.8-2.9); LYMPHOCYTES % 5.2 % (15.0-51.0); MEAN CORPUSCULAR HEMOGLOBIN 23.2 pg (29.0-33.0); MEAN CORPUSCULAR HGB CONC 27.3 g/dl (32.0-37.0); MEAN CORPUSCULAR VOLUME 84.9 fl (82.0-101.0); MONOCYTES % 8.1 % (0.0-11.0); NEUTROPHILS % 83.3 % (39.0-77.0); NUCLEATED RED BLOOD CELLS% 0.3 /100WBC (0.0-0.0); PLATELET COUNT 168 10^3/UL (140-415); POSITIVE DIFF @See below; RED BLOOD COUNT 5.04 10^6/ul (4.70-6.10); RED CELL DISTRIBUTION WIDTH 19.7 % (11.5-14.5)
[2018-11-27] MEDS: metroNIDAZOLE 500 MG TAB NGT ×3 (05:50→21:16)
[2018-11-27 05:54] LABS: ANION GAP 16 (5-13); BLOOD UREA NITROGEN 70 mg/dl (7-20); CALCIUM 10.9 mg/dl (8.4-10.2); CARBON DIOXIDE 36 mmol/L (21-31); CHLORIDE 92 mmol/L (97-110); CREATININE 1.55 mg/dl (0.61-1.24); Estimated GFR 52 mL/min (>60); GLUCOSE 178 mg/dl (70-220); MAGNESIUM 2.4 mg/dl (1.7-2.5); PHOSPHORUS 5.2 mg/dl (2.5-4.9); POTASSIUM 3.8 mmol/L (3.5-5.1); SODIUM 144 mmol/L (135-144)
[2018-11-27 08:33] LABS: AADO2 Arterial 191.7 mmHg (7.0-24.0); Allen Test ACCEPTAB; Arterial Base Excess 10.2 mmol/L (-3.0-3); Arterial Blood Gas Oxygen Sat 97.8 mmHG (95.0-98.0); Arterial COHb 0.7 % (0.0-3.0); Arterial Fraction of Oxyhgb 96.8 % (93.0-99.0); Arterial HCO3 36.4 mmol/L (22.0-26.0); Arterial MetHb 0.3 % (0.0-1.5); MODE TRACH COLLAR; Site Right Radial
[2018-11-27] MEDS: METHYLPREDNISOLONE 40 MG INJ IV (08:35)
[2018-11-27] MEDS: METOCLOPRAMIDE 10 MG INJ IV (08:35)
[2018-11-27] MEDS: FAMOTIDINE 20 MG TAB GTB ×2 (08:36→21:16)
[2018-11-27] MEDS: QUETIAPINE 100 MG TAB GTB (08:36)
[2018-11-27] MEDS: FLUCONAZOLE 100 MG TAB PO (08:36)
[2018-11-27] MEDS: NAPHAZOLINE 0.012% 15 ML OPH BOTH EYES ×4 (08:36→21:28)
[2018-11-27] MEDS: ZYVOX 600 MG TAB PO (08:36)
[2018-11-27] MEDS: ENOXAPARIN 40 MG/0.4 ML SYG SC ×2 (08:51→21:27)
[2018-11-27] MEDS: COLISTIMETHATE 200 MG in SOD CHLORIDE 0.9% 100 ML IVPB ×2 (09:00→10:45)
[2018-11-27 10:08] LABS: ANISOCYTOSIS 2+ (0-0); BAND NEUTROPHILS % (M) 9 % (0-4); BURR CELLS 3+ (0-0); GIANT THROMBO% (M) 1 % (0-0); LYMPHOCYTES #M 2.1 10^3/ul (0.8-2.9); LYMPHOCYTES % (M) 18 % (15-51); MICROCYTOSIS 2+ (0-0); MONOCYTE #M 0.3 10^3/ul (0.3-0.9); MONOCYTES % (M) 3 % (0-11); MYELOCYTES #M 0.2 10^3/ul (0.0-0.0); MYELOCYTES % (M) 2 % (0-0); PLATELET ESTIMATE NORMAL; POIKILOCYTOSIS 3+ (0-0); PROMYELOCYTES #M 0.2 10^3/ul (0-0); PROMYELOCYTES % (M) 2 % (0-0); REACTIVE LYMPHOCYTES #M 0.2 10^3/ul (0.0-0.0); REACTIVE LYMPHOCYTES% (M) 2 % (0-0); SEG NEUT #M 7.8 10^3/ul (1.6-7.5); SEGMENTED NEUTROPHILS (M) % 64 % (39-77); SMUDGE%M 32 % (0-0); TARGET CELLS 1+ (0-0)
[2018-11-27] MEDS: COLISTIMETHATE (25 MG/ML INHAL SYG) NEB ×2 (11:51→20:12)
[2018-11-27] MEDS: DOCUSATE SODIUM 10 MG/ML (10ML CUP) NGT (21:17)
[2018-11-28 05:27] LABS: ADD MAN DIFF? NO
[2018-11-28 05:32] LABS: WHITE BLOOD COUNT 9.8 10^3/ul (4.8-10.8)
[2018-11-28 05:32] LABS: ABNORMAL IP MESSAGE 1; BASOPHIL # 0.1 10^3/ul (0.0-0.1); BASOPHILS % 0.9 % (0.0-2.0); EOSINOPHILS % 0.4 % (0.0-7.0); HEMATOCRIT 42.6 % (42.0-52.0); HEMOGLOBIN 11.6 g/dl (14.0-18.0); LYMPHOCYTES # 0.8 10^3/ul (0.8-2.9); LYMPHOCYTES % 8.5 % (15.0-51.0); MEAN CORPUSCULAR HEMOGLOBIN 23.1 pg (29.0-33.0); MEAN CORPUSCULAR HGB CONC 27.2 g/dl (32.0-37.0); MEAN CORPUSCULAR VOLUME 84.7 fl (82.0-101.0); MEAN PLATELET VOLUME 11.8 fl (7.4-10.4); MONOCYTE # 0.9 10^3/ul (0.3-0.9); MONOCYTES % 8.8 % (0.0-11.0); NEUTROPHIL # 7.4 10^3/ul (1.6-7.5); NEUTROPHILS % 75.4 % (39.0-77.0); NUCLEATED RED BLOOD CELLS% 0.4 /100WBC (0.0-0.0); PLATELET COUNT 236 10^3/UL (140-415); POSITIVE DIFF @See below; RED BLOOD COUNT 5.03 10^6/ul (4.70-6.10); RED CELL DISTRIBUTION WIDTH 20.7 % (11.5-14.5)
[2018-11-28 06:04] LABS: ALANINE AMINOTRANSFERASE 47 IU/L (13-69); ALBUMIN 3.1 g/dl (3.3-4.9); ALBUMIN/GLOBULIN RATIO 0.75; ALKALINE PHOSPHATASE 85 IU/L (42-121); ANION GAP 17 (5-13); ASPARTATE AMINO TRANSFERASE 27 IU/L (15-46); BILIRUBIN,INDIRECT 0.5 mg/dl (0-1.1); BILIRUBIN,TOTAL 2.9 mg/dl (0.2-1.3); BLOOD UREA NITROGEN 83 mg/dl (7-20); CALCIUM 10.9 mg/dl (8.4-10.2); CARBON DIOXIDE 35 mmol/L (21-31); CHLORIDE 92 mmol/L (97-110); CREATININE 1.68 mg/dl (0.61-1.24); Estimated GFR 47 mL/min (>60); GLUCOSE 161 mg/dl (70-220); MAGNESIUM 2.3 mg/dl (1.7-2.5); PHOSPHORUS 4.7 mg/dl (2.5-4.9); POTASSIUM 3.8 mmol/L (3.5-5.1); SODIUM 144 mmol/L (135-144); TOTAL PROTEIN 7.2 g/dl (6.1-8.1)
[2018-11-28] MEDS: metroNIDAZOLE 500 MG TAB NGT ×3 (06:35→22:00)
[2018-11-28] MEDS: LORAZEPAM 2 MG INJ IV ×2 (07:42→16:09)
[2018-11-28 07:55] LABS: ANISOCYTOSIS 1+ (0-0); BAND NEUTROPHILS #M 2.3 10^3/ul (0.0-0.6); BAND NEUTROPHILS % (M) 24 % (0-4); EOSINOPHILS % (M) 2 % (0-7); ERYTHROBLAST% (NRBC) (M) 3 % (0-0); GIANT THROMBO% (M) 4 % (0-0); HYPOCHROMASIA 2+ (0-0); LYMPHOCYTES #M 1.3 10^3/ul (0.8-2.9); LYMPHOCYTES % (M) 14 % (15-51); METAMYELOCYTES #M 0.2 10^3/ul (0.0-0.0); METAMYELOCYTES %M 3 % (0-0); MONOCYTE #M 0.6 10^3/ul (0.3-0.9); MONOCYTES % (M) 7 % (0-11); MYELOCYTES % (M) 1 % (0-0); PLATELET ESTIMATE NORMAL; POIKILOCYTOSIS 2+ (0-0); POLYCHROMASIA 1+ (0-0); PROMYELOCYTES #M 0.1 10^3/ul (0-0); PROMYELOCYTES % (M) 2 % (0-0); SEG NEUT #M 4.8 10^3/ul (1.6-7.5); SEGMENTED NEUTROPHILS (M) % 47 % (39-77); SMUDGE%M 12 % (0-0); STOMATOCYTES 1+ (0-0)
[2018-11-28] MEDS: METHYLPREDNISOLONE 40 MG INJ IV (08:14)
[2018-11-28] MEDS: FAMOTIDINE 20 MG TAB GTB ×2 (08:15→20:53)
[2018-11-28] MEDS: NAPHAZOLINE 0.012% 15 ML OPH BOTH EYES ×4 (08:15→20:56)
[2018-11-28] MEDS: DOCUSATE SODIUM 10 MG/ML (10ML CUP) NGT ×2 (08:15→20:54)
[2018-11-28] MEDS: QUETIAPINE 25 MG TAB GTB ×2 (08:15→20:54)
[2018-11-28] MEDS: ENOXAPARIN 40 MG/0.4 ML SYG SC ×2 (08:17→20:52)
[2018-11-28] MEDS: COLISTIMETHATE (25 MG/ML INHAL SYG) NEB (08:50)
[2018-11-28] MEDS: SOD CHLORIDE 0.9% 500 ML IV ×2 (09:01→11:10)
[2018-11-28] MEDS: morphine 2 MG INJ IV ×2 (09:09→17:08)
[2018-11-28] MEDS: POLYETHYLENE GLYCOL 17 GM PACKET GTB (10:30)
[2018-11-28] MEDS ORDERED: SOD CHLORIDE 0.9% 1,000 ML IV (10:30)
[2018-11-28] MEDS: MAGNESIUM CITRATE 300 ML BTL GTB (10:30)
[2018-11-28] MEDS: HALOPERIDOL 5 MG INJ IM ×2 (10:40→20:45)
[2018-11-28] MEDS: ACETAMINOPHEN 650MG/20.3ML CUP NGT ×2 (10:42→23:17)
[2018-11-28] MEDS: TIGECYCLINE 100 MG in SOD CHLORIDE 0.9% 100 ML IVPB (13:03)
[2018-11-28] MEDS: METOPROLOL 5 MG INJ IV (13:07)
[2018-11-28] MEDS: DEXTROSE 5%-0.45% NACL 1,000 ML IV ×2 (13:28→21:39)
[2018-11-28] MEDS: CEFTAZIDIME 2GM/50 ML (PMX) 50 ML IVPB ×2 (14:25→22:04)
[2018-11-28] MEDS: SOD CHLORIDE 0.9% 250 ML IV (15:20)
[2018-11-28] MEDS: TIGECYCLINE 50 MG in SOD CHLORIDE 0.9% 100 ML IVPB (23:21)
[2018-11-29] MEDS: DEXTROSE 5%-0.45% NACL 1,000 ML IV ×2 (00:34→07:00)
[2018-11-29] MEDS: metroNIDAZOLE 500 MG TAB NGT ×3 (05:14→22:07)
[2018-11-29] MEDS: CEFTAZIDIME 2GM/50 ML (PMX) 50 ML IVPB (05:24)
[2018-11-29 06:02] LABS: ABNORMAL IP MESSAGE 1; HEMATOCRIT 40.4 % (42.0-52.0); HEMOGLOBIN 11.3 g/dl (14.0-18.0); MEAN CORPUSCULAR HEMOGLOBIN 23.7 pg (29.0-33.0); MEAN CORPUSCULAR VOLUME 84.7 fl (82.0-101.0); MEAN PLATELET VOLUME 11.3 fl (7.4-10.4); NUCLEATED RED BLOOD CELLS% 0.7 /100WBC (0.0-0.0); PLATELET COUNT 297 10^3/UL (140-415); POSITIVE DIFF @See below; RED BLOOD COUNT 4.77 10^6/ul (4.70-6.10); RED CELL DISTRIBUTION WIDTH 20.8 % (11.5-14.5)
[2018-11-29 06:02] LABS: WHITE BLOOD COUNT 18.8 10^3/ul (4.8-10.8)
[2018-11-29 06:31] LABS: ADD MAN DIFF? YES
[2018-11-29 06:55] LABS: ALANINE AMINOTRANSFERASE 46 IU/L (13-69); ALBUMIN 2.9 g/dl (3.3-4.9); ALKALINE PHOSPHATASE 86 IU/L (42-121); ANION GAP 11 (5-13); ASPARTATE AMINO TRANSFERASE 30 IU/L (15-46); BILIRUBIN,INDIRECT 0.3 mg/dl (0-1.1); BILIRUBIN,TOTAL 3.4 mg/dl (0.2-1.3); BLOOD UREA NITROGEN 113 mg/dl (7-20); CARBON DIOXIDE 32 mmol/L (21-31); CHLORIDE 97 mmol/L (97-110); CREATININE 3.96 mg/dl (0.61-1.24); Estimated GFR 18 mL/min (>60); GLUCOSE 189 mg/dl (70-220); POTASSIUM 4.8 mmol/L (3.5-5.1); SODIUM 140 mmol/L (135-144); TOTAL PROTEIN 6.5 g/dl (6.1-8.1)
[2018-11-29 06:57] LABS: ADD UMIC YES; UR ASCORBIC ACID NEGATIVE (NEGATIVE); UR BILIRUBIN (Dip) NEGATIVE (NEGATIVE); UR BLOOD (Dip) 3+ mg/dL (NEGATIVE); UR CLARITY TURBID (CLEAR); UR COLOR RED (YELLOW); UR GLUCOSE (Dip) 1+ mg/dL (NEGATIVE); UR KETONES (Dip) NEGATIVE (NEGATIVE); UR LEUKOCYTE ESTERASE (Dip) NEGATIVE Leu/ul (NEGATIVE); UR NITRITE (Dip) NEGATIVE (NEGATIVE); UR RBC > 182 /HPF (0-5); UR SPECIFIC GRAVITY (Dip) 1.029 (1.003-1.030); UR TOTAL PROTEIN (Dip) 2+ mg/dl (NEGATIVE); UR UROBILINOGEN (Dip) NEGATIVE (NEGATIVE); UR WBC 113 /HPF (0-5)
[2018-11-29 07:07] LABS: HEPATITIS B SURFACE ANTIGEN NEGATIVE (NEGATIVE)
[2018-11-29 07:24] LABS: HEPATITIS B SURFACE ANTIBODY NEGATIVE (NEGATIVE)
[2018-11-29 07:26] LABS: HEPATITIS B CORE ANTIBODY NEGATIVE (NEGATIVE); HEPATITIS C VIRAL ANTIBODY NEGATIVE (NEGATIVE)
[2018-11-29 07:29] LABS: CREATININE,URINE RANDOM 186.35 mg/dl (20-370)
[2018-11-29 07:36] LABS: PROTEIN/CREAT RATIO 1.58 RATIO
[2018-11-29 07:49] LABS: SODIUM,URINE RANDOM 30 mmol/L (30-90)
[2018-11-29 07:50] LABS: CREATINE KINASE 70 IU/L (23-200)
[2018-11-29 07:57] LABS: CK INDEX 0.7; TROPONIN-I 0.058 ng/ml (0.000-0.120)
[2018-11-29 08:05] LABS: ANISOCYTOSIS 1+ (0-0); BAND NEUTROPHILS #M 7.5 10^3/ul (0.0-0.6); BAND NEUTROPHILS % (M) 40 % (0-4); BASOPHIL #M 0.1 10^3/ul (0.0-0.0); BASOPHILS % (M) 1 % (0-2); ERYTHROBLAST% (NRBC) (M) 1 % (0-0); GIANT THROMBO% (M) 1 % (0-0); HYPOCHROMASIA 1+ (0-0); LYMPHOCYTES #M 1.8 10^3/ul (0.8-2.9); LYMPHOCYTES % (M) 10 % (15-51); METAMYELOCYTES #M 1.3 10^3/ul (0.0-0.0); METAMYELOCYTES %M 7 % (0-0); MONOCYTE #M 0.7 10^3/ul (0.3-0.9); MONOCYTES % (M) 4 % (0-11); MYELOCYTES #M 0.5 10^3/ul (0.0-0.0); MYELOCYTES % (M) 3 % (0-0); OVALOCYTES 1+ (0-0); PLATELET ESTIMATE NORMAL; POIKILOCYTOSIS 1+ (0-0); POLYCHROMASIA 1+ (0-0); PROMYELOCYTES #M 0.3 10^3/ul (0-0); PROMYELOCYTES % (M) 2 % (0-0); REACTIVE LYMPHOCYTES #M 0.3 10^3/ul (0.0-0.0); REACTIVE LYMPHOCYTES% (M) 2 % (0-0); SEG NEUT #M 7.2 10^3/ul (1.6-7.5); SEGMENTED NEUTROPHILS (M) % 31 % (39-77); SMUDGE%M 1 % (0-0); TARGET CELLS 2+ (0-0)
[2018-11-29] MEDS: HALOPERIDOL 5 MG INJ IM (08:37)
[2018-11-29] MEDS: METHYLPREDNISOLONE 40 MG INJ IV (08:37)
[2018-11-29] MEDS: ACETAMINOPHEN 650MG/20.3ML CUP NGT ×2 (08:37→16:03)
[2018-11-29] MEDS: QUETIAPINE 25 MG TAB GTB ×2 (08:37→20:39)
[2018-11-29] MEDS: FAMOTIDINE 20 MG TAB GTB (08:38)
[2018-11-29] MEDS: ENOXAPARIN 40 MG/0.4 ML SYG SC (08:38)
[2018-11-29] MEDS: DOCUSATE SODIUM 10 MG/ML (10ML CUP) NGT ×2 (08:38→20:39)
[2018-11-29] MEDS: POLYETHYLENE GLYCOL 17 GM PACKET GTB (08:38)
[2018-11-29] MEDS: NAPHAZOLINE 0.012% 15 ML OPH BOTH EYES ×4 (08:39→20:37)
[2018-11-29] MEDS: TIGECYCLINE 50 MG in SOD CHLORIDE 0.9% 100 ML IVPB ×2 (08:59→20:44)
[2018-11-29 11:26] LABS: ADD UMIC YES; UR ASCORBIC ACID NEGATIVE (NEGATIVE); UR BACTERIA FEW /HPF (NONE SEEN); UR BILIRUBIN (Dip) NEGATIVE (NEGATIVE); UR BLOOD (Dip) 3+ mg/dL (NEGATIVE); UR CALCIUM OXALATE CRYSTAL MANY /HPF (NONE SEEN); UR CLARITY TURBID (CLEAR); UR COLOR AMBER (YELLOW); UR GLUCOSE (Dip) 1+ mg/dL (NEGATIVE); UR GRANULAR CAST FEW /HPF (NONE SEEN); UR KETONES (Dip) NEGATIVE (NEGATIVE); UR LEUKOCYTE ESTERASE (Dip) TRACE Leu/ul (NEGATIVE); UR MUCUS FEW /HPF (NONE SEEN); UR NITRITE (Dip) NEGATIVE (NEGATIVE); UR NONSQUAMOUS EPITHELIAL CELL 3 /HPF (NONE SEEN); UR RBC > 182 /HPF (0-5); UR SPECIFIC GRAVITY (Dip) 1.027 (1.003-1.030); UR TOTAL PROTEIN (Dip) 2+ mg/dl (NEGATIVE); UR UROBILINOGEN (Dip) NEGATIVE (NEGATIVE); UR WBC 36 /HPF (0-5)
[2018-11-29] MEDS: LIDOCAINE 1% (MPF) 5 ML VIAL SC ×2 (11:30→11:47)
[2018-11-29] MEDS: SCOPOLAMINE 1.5 MG PATCH TRANSDERM (11:47)
[2018-11-29] MEDS: SOD CHLORIDE 0.9% 500 ML IV (13:17)
[2018-11-29 15:54] LABS: CREATINE KINASE 72 IU/L (23-200)
[2018-11-29 16:05] LABS: CK INDEX 0.9; CK-MB 0.64 ng/ml (0.0-2.4); TROPONIN-I 0.036 ng/ml (0.000-0.120)
[2018-11-29] MEDS: HEPARIN 5,000 UNIT/1 ML VIAL SC (20:40)
[2018-11-29 21:59] LABS: CREATINE KINASE 101 IU/L (23-200)
[2018-11-29 22:12] LABS: CK INDEX 0.7; CK-MB 0.66 ng/ml (0.0-2.4); TROPONIN-I 0.037 ng/ml (0.000-0.120)
[2018-11-30] MEDS: ACETAMINOPHEN 650MG/20.3ML CUP NGT (00:16)
[2018-11-30] MEDS: DEXTROSE 5%-0.45% NACL 1,000 ML IV ×3 (00:16→18:09)
[2018-11-30] MEDS ORDERED: IPRATROPIUM (NEB) 0.5 MG/2.5 ML AMP HHN (02:00)
[2018-11-30] MEDS: ALBUTEROL/IPRATROPIUM (NEB) 3 ML AMP HHN ×4 (04:35→19:35)
[2018-11-30 05:04] LABS: WHITE BLOOD COUNT 24.5 10^3/ul (4.8-10.8)
[2018-11-30 05:04] LABS: ABNORMAL IP MESSAGE 1; HEMATOCRIT 37.6 % (42.0-52.0); HEMOGLOBIN 10.3 g/dl (14.0-18.0); MEAN CORPUSCULAR HEMOGLOBIN 23.3 pg (29.0-33.0); MEAN CORPUSCULAR HGB CONC 27.4 g/dl (32.0-37.0); MEAN CORPUSCULAR VOLUME 85.1 fl (82.0-101.0); MEAN PLATELET VOLUME 11.5 fl (7.4-10.4); NUCLEATED RED BLOOD CELLS% 0.4 /100WBC (0.0-0.0); PLATELET COUNT 254 10^3/UL (140-415); POSITIVE DIFF @See below; RED BLOOD COUNT 4.42 10^6/ul (4.70-6.10); RED CELL DISTRIBUTION WIDTH 21.3 % (11.5-14.5)
[2018-11-30 05:09] LABS: ADD MAN DIFF? YES
[2018-11-30] MEDS: metroNIDAZOLE 500 MG TAB NGT ×3 (05:46→21:12)
[2018-11-30] MEDS: CEFTAZIDIME 1GM/50 ML (PMX) 50 ML IVPB (05:48)
[2018-11-30] MEDS: DIATR MEGLU/DIATRIZOATE SODIUM 120 ML BTL PO (05:58)
[2018-11-30 06:56] LABS: ALANINE AMINOTRANSFERASE 33 IU/L (13-69); ALBUMIN 2.8 g/dl (3.3-4.9); ALKALINE PHOSPHATASE 93 IU/L (42-121); ANION GAP 16 (5-13); ASPARTATE AMINO TRANSFERASE 31 IU/L (15-46); BILIRUBIN,INDIRECT 0.3 mg/dl (0-1.1); BILIRUBIN,TOTAL 2.9 mg/dl (0.2-1.3); CARBON DIOXIDE 25 mmol/L (21-31); CHLORIDE 97 mmol/L (97-110); GLUCOSE 186 mg/dl (70-220); POTASSIUM 5.4 mmol/L (3.5-5.1); SODIUM 138 mmol/L (135-144); TOTAL PROTEIN 6.3 g/dl (6.1-8.1)
[2018-11-30 07:06] LABS: Estimated GFR 13 mL/min (>60)
[2018-11-30 07:08] LABS: BLOOD UREA NITROGEN 134 mg/dl (7-20); CREATININE 5.25 mg/dl (0.61-1.24)
[2018-11-30 07:59] LABS: MAGNESIUM 2.9 mg/dl (1.7-2.5)
[2018-11-30 08:01] LABS: INR 1.58; PT RATIO 1.5
[2018-11-30 08:02] LABS: PARTIAL THROMBOPLASTIN TIME 33.1 Sec (23.0-35.0)
[2018-11-30] MEDS: NAPHAZOLINE 0.012% 15 ML OPH BOTH EYES ×4 (08:33→21:10)
[2018-11-30] MEDS: FAMOTIDINE 20 MG TAB GTB (08:33)
[2018-11-30] MEDS: DOCUSATE SODIUM 10 MG/ML (10ML CUP) NGT ×2 (08:33→21:12)
[2018-11-30] MEDS: METHYLPREDNISOLONE 40 MG INJ IV (08:33)
[2018-11-30] MEDS: QUETIAPINE 25 MG TAB GTB ×2 (08:33→21:12)
[2018-11-30] MEDS: POLYETHYLENE GLYCOL 17 GM PACKET GTB (08:34)
[2018-11-30] MEDS: TIGECYCLINE 50 MG in SOD CHLORIDE 0.9% 100 ML IVPB ×2 (08:35→21:30)
[2018-11-30] MEDS: HEPARIN 5,000 UNIT/1 ML VIAL SC ×2 (08:36→21:12)
[2018-11-30 09:12] LABS: ANISOCYTOSIS 1+ (0-0); BAND NEUTROPHILS #M 3.1 10^3/ul (0.0-0.6); BAND NEUTROPHILS % (M) 13 % (0-4); ERYTHROBLAST% (NRBC) (M) 1 % (0-0); HYPOCHROMASIA 1+ (0-0); LYMPHOCYTES #M 2.6 10^3/ul (0.8-2.9); LYMPHOCYTES % (M) 11 % (15-51); METAMYELOCYTES #M 0.9 10^3/ul (0.0-0.0); METAMYELOCYTES %M 4 % (0-0); MONOCYTE #M 1.2 10^3/ul (0.3-0.9); MONOCYTES % (M) 5 % (0-11); MYELOCYTES #M 0.4 10^3/ul (0.0-0.0); MYELOCYTES % (M) 2 % (0-0); PLATELET ESTIMATE NORMAL; POIKILOCYTOSIS 2+ (0-0); POLYCHROMASIA 1+ (0-0); PROMYELOCYTES #M 0.4 10^3/ul (0-0); PROMYELOCYTES % (M) 2 % (0-0); SEG NEUT #M 16.2 10^3/ul (1.6-7.5); SEGMENTED NEUTROPHILS (M) % 63 % (39-77); SMUDGE%M 4 % (0-0); SPHEROCYTES 1+ (0-0)
[2018-11-30] MEDS ORDERED: SODIUM BICARBONATE (IV ADD) 150 MEQ in DEXTROSE 5% 1,000 ML IV (13:30)
[2018-11-30 13:38] LABS: AADO2 Arterial 175.3 mmHg (7.0-24.0); Allen Test ACCEPTAB; Arterial Base Excess -3.1 mmol/L (-3.0-3); Arterial Blood Gas Oxygen Sat 66.8 mmHG (95.0-98.0); Arterial COHb 0.1 % (0.0-3.0); Arterial Fraction of Oxyhgb 66.4 % (93.0-99.0); Arterial HCO3 24.7 mmol/L (22.0-26.0); Arterial MetHb 0.5 % (0.0-1.5); Arterial pCO2 57.8 mmhg (35-45); MODE TRACH COLLAR; Site Right Radial
[2018-11-30] MEDS ORDERED: HEPARIN 1000 UNITS/ML 10 ML INJ (14:20)
[2018-11-30] MEDS: HEPARIN 1000 UNITS/ML 10 ML INJ CATHETER ×2 (15:15→20:44)
[2018-11-30] MEDS: ALBUMIN HUMAN 25% 100 ML IV (18:04)
[2018-11-30 21:57] LABS: Arterial Base Excess -1.5 mmol/L (-3.0-3); Arterial Blood Gas Oxygen Sat 98.6 mmHG (95.0-98.0); Arterial COHb 0 % (0.0-3.0); Arterial HCO3 26.4 mmol/L (22.0-26.0); Arterial MetHb 0.6 % (0.0-1.5); Arterial pCO2 59.8 mmhg (35-45); MODE VENT - AC; Site Right Radial
[2018-12-01] MEDS: ALBUTEROL/IPRATROPIUM (NEB) 3 ML AMP HHN (01:34)
[2018-12-01 05:30] LABS: WHITE BLOOD COUNT 27.1 10^3/ul (4.8-10.8)
[2018-12-01 05:30] LABS: ABNORMAL IP MESSAGE 1; HEMATOCRIT 34.6 % (42.0-52.0); HEMOGLOBIN 9.6 g/dl (14.0-18.0); MEAN CORPUSCULAR HEMOGLOBIN 23.2 pg (29.0-33.0); MEAN CORPUSCULAR HGB CONC 27.7 g/dl (32.0-37.0); MEAN CORPUSCULAR VOLUME 83.8 fl (82.0-101.0); MEAN PLATELET VOLUME 10.3 fl (7.4-10.4); NUCLEATED RED BLOOD CELLS% 0.4 /100WBC (0.0-0.0); PLATELET COUNT 272 10^3/UL (140-415); POSITIVE DIFF @See below; RED BLOOD COUNT 4.13 10^6/ul (4.70-6.10); RED CELL DISTRIBUTION WIDTH 20.8 % (11.5-14.5)
[2018-12-01 05:37] LABS: ADD MAN DIFF? YES
[2018-12-01 05:59] LABS: ALANINE AMINOTRANSFERASE 37 IU/L (13-69); ALBUMIN/GLOBULIN RATIO 0.88; ALKALINE PHOSPHATASE 107 IU/L (42-121); ANION GAP 15 (5-13); ASPARTATE AMINO TRANSFERASE 29 IU/L (15-46); BILIRUBIN,INDIRECT 0.3 mg/dl (0-1.1); BILIRUBIN,TOTAL 2.2 mg/dl (0.2-1.3); BLOOD UREA NITROGEN 115 mg/dl (7-20); CALCIUM 10.7 mg/dl (8.4-10.2); CARBON DIOXIDE 25 mmol/L (21-31); CHLORIDE 95 mmol/L (97-110); GLUCOSE 150 mg/dl (70-220); POTASSIUM 5.7 mmol/L (3.5-5.1); SODIUM 135 mmol/L (135-144); TOTAL PROTEIN 6.4 g/dl (6.1-8.1)
[2018-12-01] MEDS: metroNIDAZOLE 500 MG TAB NGT ×3 (06:01→21:26)
[2018-12-01] MEDS: CEFTAZIDIME 1GM/50 ML (PMX) 50 ML IVPB (06:01)
[2018-12-01 06:06] LABS: Estimated GFR 14 mL/min (>60)
[2018-12-01 06:16] LABS: CREATININE 4.74 mg/dl (0.61-1.24)
[2018-12-01] MEDS: DOCUSATE SODIUM 10 MG/ML (10ML CUP) NGT ×2 (08:39→21:00)
[2018-12-01] MEDS: POLYETHYLENE GLYCOL 17 GM PACKET GTB (08:40)
[2018-12-01] MEDS: QUETIAPINE 25 MG TAB GTB ×2 (08:40→21:00)
[2018-12-01] MEDS: FAMOTIDINE 20 MG TAB GTB (08:40)
[2018-12-01] MEDS: TIGECYCLINE 50 MG in SOD CHLORIDE 0.9% 100 ML IVPB ×2 (08:40→21:23)
[2018-12-01] MEDS: NAPHAZOLINE 0.012% 15 ML OPH BOTH EYES ×4 (08:41→21:24)
[2018-12-01] MEDS: HEPARIN 5,000 UNIT/1 ML VIAL SC ×2 (08:49→21:28)
[2018-12-01 09:43] LABS: ANISOCYTOSIS 1+ (0-0); BAND NEUTROPHILS #M 6.5 10^3/ul (0.0-0.6); BAND NEUTROPHILS % (M) 24 % (0-4); ERYTHROBLAST% (NRBC) (M) 1 % (0-0); LYMPHOCYTES #M 1.6 10^3/ul (0.8-2.9); LYMPHOCYTES % (M) 6 % (15-51); METAMYELOCYTES #M 0.2 10^3/ul (0.0-0.0); METAMYELOCYTES %M 1 % (0-0); MONOCYTES % (M) 4 % (0-11); MYELOCYTES #M 0.8 10^3/ul (0.0-0.0); MYELOCYTES % (M) 3 % (0-0); PLATELET ESTIMATE NORMAL; POIKILOCYTOSIS 1+ (0-0); PROMYELOCYTES #M 0.2 10^3/ul (0-0); PROMYELOCYTES % (M) 1 % (0-0); SEG NEUT #M 18.3 10^3/ul (1.6-7.5); SEGMENTED NEUTROPHILS (M) % 61 % (39-77); SMUDGE%M 9 % (0-0); SPHEROCYTES 1+ (0-0); TARGET CELLS 1+ (0-0); TOXIC GRANULATION 2+ (0-0)
[2018-12-01 10:12] LABS: PHOSPHORUS 9.3 mg/dl (2.5-4.9)
[2018-12-01] MEDS: ALBUTEROL HFA 8 GM INHALER INH ×3 (10:23→19:52)
[2018-12-01] MEDS: IPRATROPIUM (HFA) 12.9 GM INHALER INH ×3 (10:24→19:52)
[2018-12-01] MEDS: DEXTROSE 5%-0.45% NACL 1,000 ML IV (11:11)
[2018-12-01] MEDS: METOCLOPRAMIDE 10 MG INJ IV ×2 (12:10→18:00)
[2018-12-01] MEDS: DIATR MEGLU/DIATRIZOATE SODIUM 120 ML BTL (15:00)
[2018-12-01] MEDS: HEPARIN 1000 UNITS/ML 10 ML INJ CATHETER (16:57)
[2018-12-01] MEDS: LORAZEPAM 2 MG INJ IV (23:40)
[2018-12-02] MEDS: metroNIDAZOLE 500 MG TAB NGT (00:43)
[2018-12-02] MEDS: METOCLOPRAMIDE 10 MG INJ IV ×5 (01:40→23:56)
[2018-12-02] MEDS: ALBUTEROL HFA 8 GM INHALER INH ×4 (01:43→20:02)
[2018-12-02] MEDS: DEXTROSE 5%-0.45% NACL 1,000 ML IV ×2 (03:55→20:31)
[2018-12-02 05:35] LABS: WHITE BLOOD COUNT 29.1 10^3/ul (4.8-10.8)
[2018-12-02 05:35] LABS: ABNORMAL IP MESSAGE 1; HEMATOCRIT 34.6 % (42.0-52.0); MEAN CORPUSCULAR HEMOGLOBIN 23.6 pg (29.0-33.0); MEAN CORPUSCULAR HGB CONC 28.9 g/dl (32.0-37.0); MEAN CORPUSCULAR VOLUME 81.6 fl (82.0-101.0); MEAN PLATELET VOLUME 10.3 fl (7.4-10.4); NUCLEATED RED BLOOD CELLS% 0.8 /100WBC (0.0-0.0); PLATELET COUNT 274 10^3/UL (140-415); POSITIVE DIFF @See below; RED BLOOD COUNT 4.24 10^6/ul (4.70-6.10); RED CELL DISTRIBUTION WIDTH 21.7 % (11.5-14.5)
[2018-12-02 05:39] LABS: ADD MAN DIFF? YES
[2018-12-02 06:02] LABS: ALANINE AMINOTRANSFERASE 36 IU/L (13-69); ALBUMIN 2.9 g/dl (3.3-4.9); ALKALINE PHOSPHATASE 127 IU/L (42-121); ANION GAP 20 (5-13); ASPARTATE AMINO TRANSFERASE 29 IU/L (15-46); BILIRUBIN,INDIRECT 0.2 mg/dl (0-1.1); BILIRUBIN,TOTAL 1.5 mg/dl (0.2-1.3); BLOOD UREA NITROGEN 105 mg/dl (7-20); CALCIUM 10.4 mg/dl (8.4-10.2); CARBON DIOXIDE 21 mmol/L (21-31); CHLORIDE 95 mmol/L (97-110); GLUCOSE 128 mg/dl (70-220); POTASSIUM 4.7 mmol/L (3.5-5.1); SODIUM 136 mmol/L (135-144); TOTAL PROTEIN 6.5 g/dl (6.1-8.1)
[2018-12-02] MEDS: CEFTAZIDIME 1GM/50 ML (PMX) 50 ML IVPB (06:02)
[2018-12-02 06:07] LABS: Estimated GFR 14 mL/min (>60)
[2018-12-02 06:08] LABS: CREATININE 4.97 mg/dl (0.61-1.24)
[2018-12-02] MEDS: IPRATROPIUM (HFA) 12.9 GM INHALER INH ×3 (08:02→20:02)
[2018-12-02] MEDS: DOCUSATE SODIUM 10 MG/ML (10ML CUP) NGT ×2 (08:21→21:00)
[2018-12-02] MEDS: POLYETHYLENE GLYCOL 17 GM PACKET GTB (08:21)
[2018-12-02] MEDS: FAMOTIDINE 20 MG TAB GTB (08:21)
[2018-12-02] MEDS: QUETIAPINE 25 MG TAB GTB ×2 (08:21→21:00)
[2018-12-02] MEDS: NAPHAZOLINE 0.012% 15 ML OPH BOTH EYES ×4 (08:22→21:17)
[2018-12-02] MEDS: HEPARIN 5,000 UNIT/1 ML VIAL SC ×2 (08:29→21:23)
[2018-12-02] MEDS: TIGECYCLINE 50 MG in SOD CHLORIDE 0.9% 100 ML IVPB ×2 (08:32→20:32)
[2018-12-02 08:50] LABS: ANISOCYTOSIS 1+ (0-0); BAND NEUTROPHILS #M 2.6 10^3/ul (0.0-0.6); BAND NEUTROPHILS % (M) 9 % (0-4); ERYTHROBLAST% (NRBC) (M) 1 % (0-0); GIANT THROMBO% (M) 1 % (0-0); HYPOCHROMASIA 2+ (0-0); LYMPHOCYTES % (M) 7 % (15-51); MICROCYTOSIS 1+ (0-0); MONOCYTE #M 1.1 10^3/ul (0.3-0.9); MONOCYTES % (M) 4 % (0-11); MYELOCYTES #M 0.2 10^3/ul (0.0-0.0); MYELOCYTES % (M) 1 % (0-0); PLASMA CELLS #M 0.2 10^3/ul (0.0-0.0); PLASMAC%(M) 1 % (0); PLATELET ESTIMATE NORMAL; PLATELET MORPHOLOGY COMMENT @See below; POIKILOCYTOSIS 1+ (0-0); POLYCHROMASIA 2+ (0-0); SEG NEUT #M 23.5 10^3/ul (1.6-7.5); SEGMENTED NEUTROPHILS (M) % 78 % (39-77); SMUDGE%M 1 % (0-0); TOXIC GRANULATION 1+ (0-0)
[2018-12-02] MEDS: DIATR MEGLU/DIATRIZOATE SODIUM 120 ML BTL ×3 (10:00)
[2018-12-02] MEDS: SCOPOLAMINE 1.5 MG PATCH TRANSDERM (12:08)
[2018-12-02] MEDS: metroNIDAZOLE 500 MG/NS (PMX) 100 ML IVPB ×2 (14:00→21:26)
[2018-12-02] MEDS: HEPARIN 1000 UNITS/ML 10 ML INJ CATHETER (19:35)
[2018-12-02] MEDS: BALSAM PERU/CASTOR OIL 60 GM TUBE TOP (21:25)
[2018-12-03] MEDS: ALBUTEROL HFA 8 GM INHALER INH ×4 (01:45→19:55)
[2018-12-03 05:06] LABS: ADD MAN DIFF? NO
[2018-12-03 05:14] LABS: WHITE BLOOD COUNT 26.8 10^3/ul (4.8-10.8)
[2018-12-03 05:14] LABS: ABNORMAL IP MESSAGE 1; BASOPHIL # 0.2 10^3/ul (0.0-0.1); BASOPHILS % 0.6 % (0.0-2.0); HEMATOCRIT 31.7 % (42.0-52.0); LYMPHOCYTES # 1.3 10^3/ul (0.8-2.9); MEAN CORPUSCULAR HEMOGLOBIN 23.5 pg (29.0-33.0); MEAN CORPUSCULAR HGB CONC 28.4 g/dl (32.0-37.0); MEAN CORPUSCULAR VOLUME 82.8 fl (82.0-101.0); MEAN PLATELET VOLUME 11.4 fl (7.4-10.4); MONOCYTES % 3.8 % (0.0-11.0); NEUTROPHIL # 23.3 10^3/ul (1.6-7.5); NUCLEATED RED BLOOD CELLS # 0.1 10^3/ul (0.0-0.0); NUCLEATED RED BLOOD CELLS% 0.3 /100WBC (0.0-0.0); PLATELET COUNT 242 10^3/UL (140-415); POSITIVE DIFF @See below; RED BLOOD COUNT 3.83 10^6/ul (4.70-6.10); RED CELL DISTRIBUTION WIDTH 21.6 % (11.5-14.5)
[2018-12-03] MEDS: CEFTAZIDIME 1GM/50 ML (PMX) 50 ML IVPB (05:26)
[2018-12-03] MEDS: metroNIDAZOLE 500 MG/NS (PMX) 100 ML IVPB ×3 (05:26→21:34)
[2018-12-03] MEDS: METOCLOPRAMIDE 10 MG INJ IV (05:26)
[2018-12-03 05:41] LABS: ALANINE AMINOTRANSFERASE 42 IU/L (13-69); ALBUMIN 2.5 g/dl (3.3-4.9); ALBUMIN/GLOBULIN RATIO 0.73; ALKALINE PHOSPHATASE 126 IU/L (42-121); ANION GAP 15 (5-13); ASPARTATE AMINO TRANSFERASE 29 IU/L (15-46); BILIRUBIN,INDIRECT 0.2 mg/dl (0-1.1); BLOOD UREA NITROGEN 79 mg/dl (7-20); CALCIUM 8.5 mg/dl (8.4-10.2); CARBON DIOXIDE 24 mmol/L (21-31); CHLORIDE 91 mmol/L (97-110); GLUCOSE 348 mg/dl (70-220); POTASSIUM 4.4 mmol/L (3.5-5.1); SODIUM 130 mmol/L (135-144); TOTAL PROTEIN 5.9 g/dl (6.1-8.1)
[2018-12-03 05:47] LABS: Estimated GFR 16 mL/min (>60)
[2018-12-03 05:50] LABS: PHOSPHORUS 6.9 mg/dl (2.5-4.9)
[2018-12-03] MEDS: SOD CHLORIDE 0.9% 500 ML IV ×2 (06:43→06:52)
[2018-12-03] MEDS: IPRATROPIUM (HFA) 12.9 GM INHALER INH ×3 (08:17→19:55)
[2018-12-03] MEDS: BALSAM PERU/CASTOR OIL 60 GM TUBE TOP ×2 (08:20→21:35)
[2018-12-03] MEDS: NAPHAZOLINE 0.012% 15 ML OPH BOTH EYES ×4 (08:20→21:34)
[2018-12-03] MEDS: POLYETHYLENE GLYCOL 17 GM PACKET GTB (08:20)
[2018-12-03] MEDS: FAMOTIDINE 20 MG TAB GTB (08:20)
[2018-12-03] MEDS: QUETIAPINE 25 MG TAB GTB ×2 (08:21→21:00)
[2018-12-03] MEDS: DOCUSATE SODIUM 10 MG/ML (10ML CUP) NGT (08:21)
[2018-12-03] MEDS: TIGECYCLINE 50 MG in SOD CHLORIDE 0.9% 100 ML IVPB ×2 (08:22→21:41)
[2018-12-03] MEDS: HEPARIN 5,000 UNIT/1 ML VIAL SC ×2 (08:24→21:36)
[2018-12-03] MEDS ORDERED: POLYETHYLENE GLYCOL 17 GM PACKET GTB (09:30)
[2018-12-03 09:53] LABS: PROTIME 19.1 Sec (11.9-14.9); PT RATIO 1.5
[2018-12-03 09:54] LABS: PARTIAL THROMBOPLASTIN TIME 38.7 Sec (23.0-35.0)
[2018-12-03] MEDS: LACTATED RINGER'S 1,000 ML IV ×2 (12:53→16:12)
[2018-12-03] MEDS: PANTOPRAZOLE IV 80 MG in SOD CHLORIDE 0.9% 100 ML IV ×2 (12:55→21:34)
[2018-12-03] MEDS ORDERED: LACTATED RINGER'S 1,000 ML IV (13:00)
[2018-12-03] MEDS: ACETYLCYSTEINE 20% 4 ML VIAL NEB ×2 (15:37→19:56)
[2018-12-03] MEDS: morphine 2 MG INJ IV (17:39)
[2018-12-03 17:40] LABS: HEMATOCRIT 31.2 % (42.0-52.0); HEMOGLOBIN 9.1 g/dl (14.0-18.0)
[2018-12-03] MEDS ORDERED: PANTOPRAZOLE 40 MG INJ IV (18:00)
[2018-12-04 00:43] LABS: HEMATOCRIT 31.6 % (42.0-52.0); HEMOGLOBIN 9.1 g/dl (14.0-18.0)
[2018-12-04] MEDS: ACETAMINOPHEN 1000MG/100ML IV 100 ML IVPB ×2 (01:39→08:05)
[2018-12-04] MEDS: NORepinephrine 8MG/250 ML (PMX 250 ML IV (01:44)
[2018-12-04] MEDS: ACETYLCYSTEINE 20% 4 ML VIAL NEB ×4 (01:48→20:10)
[2018-12-04] MEDS: ALBUTEROL HFA 8 GM INHALER INH ×4 (01:48→20:10)
[2018-12-04] MEDS: CEFTAZIDIME 1GM/50 ML (PMX) 50 ML IVPB (05:20)
[2018-12-04 05:49] LABS: WHITE BLOOD COUNT 28.2 10^3/ul (4.8-10.8)
[2018-12-04 05:49] LABS: ABNORMAL IP MESSAGE 1; HEMATOCRIT 32.4 % (42.0-52.0); HEMOGLOBIN 9.5 g/dl (14.0-18.0); MEAN CORPUSCULAR HEMOGLOBIN 23.5 pg (29.0-33.0); MEAN CORPUSCULAR HGB CONC 29.3 g/dl (32.0-37.0); MEAN CORPUSCULAR VOLUME 80.2 fl (82.0-101.0); NUCLEATED RED BLOOD CELLS% 0.1 /100WBC (0.0-0.0); PLATELET COUNT 268 10^3/UL (140-415); POSITIVE DIFF @See below; RED BLOOD COUNT 4.04 10^6/ul (4.70-6.10); RED CELL DISTRIBUTION WIDTH 22.2 % (11.5-14.5)
[2018-12-04] MEDS: metroNIDAZOLE 500 MG/NS (PMX) 100 ML IVPB ×3 (05:59→21:41)
[2018-12-04] MEDS: PANTOPRAZOLE IV 80 MG in SOD CHLORIDE 0.9% 100 ML IV ×2 (05:59→16:35)
[2018-12-04 06:10] LABS: ADD MAN DIFF? YES
[2018-12-04 06:19] LABS: ALANINE AMINOTRANSFERASE 42 IU/L (13-69); ALBUMIN 2.6 g/dl (3.3-4.9); ALBUMIN/GLOBULIN RATIO 0.68; ALKALINE PHOSPHATASE 160 IU/L (42-121); ANION GAP 20 (5-13); ASPARTATE AMINO TRANSFERASE 31 IU/L (15-46); BILIRUBIN,INDIRECT 0.1 mg/dl (0-1.1); BILIRUBIN,TOTAL 1.1 mg/dl (0.2-1.3); BLOOD UREA NITROGEN 102 mg/dl (7-20); CALCIUM 8.9 mg/dl (8.4-10.2); CARBON DIOXIDE 23 mmol/L (21-31); CHLORIDE 94 mmol/L (97-110); GLUCOSE 83 mg/dl (70-220); PHOSPHORUS 7.8 mg/dl (2.5-4.9); POTASSIUM 5.2 mmol/L (3.5-5.1); SODIUM 137 mmol/L (135-144); TOTAL PROTEIN 6.4 g/dl (6.1-8.1)
[2018-12-04 06:25] LABS: Estimated GFR 10 mL/min (>60)
[2018-12-04 06:31] LABS: CREATININE 6.27 mg/dl (0.61-1.24)
[2018-12-04 07:14] LABS: ADD UMIC YES; UR ASCORBIC ACID NEGATIVE (NEGATIVE); UR BACTERIA FEW /HPF (NONE SEEN); UR BILIRUBIN (Dip) NEGATIVE (NEGATIVE); UR BLOOD (Dip) 3+ mg/dL (NEGATIVE); UR CLARITY CLOUDY (CLEAR); UR COLOR RED (YELLOW); UR GLUCOSE (Dip) 2+ mg/dL (NEGATIVE); UR KETONES (Dip) NEGATIVE (NEGATIVE); UR LEUKOCYTE ESTERASE (Dip) 1+ Leu/ul (NEGATIVE); UR NITRITE (Dip) NEGATIVE (NEGATIVE); UR RBC > 182 /HPF (0-5); UR SPECIFIC GRAVITY (Dip) 1.031 (1.003-1.030); UR TOTAL PROTEIN (Dip) 2+ mg/dl (NEGATIVE); UR UROBILINOGEN (Dip) NEGATIVE (NEGATIVE); UR WBC 50 /HPF (0-5)
[2018-12-04] MEDS: IPRATROPIUM (HFA) 12.9 GM INHALER INH ×3 (07:17→20:10)
[2018-12-04] MEDS: NAPHAZOLINE 0.012% 15 ML OPH BOTH EYES ×4 (08:06→21:00)
[2018-12-04 08:07] LABS: ANISOCYTOSIS 2+ (0-0); BAND NEUTROPHILS #M 1.1 10^3/ul (0.0-0.6); BAND NEUTROPHILS % (M) 4 % (0-4); GIANT THROMBO% (M) 2 % (0-0); HYPOCHROMASIA 2+ (0-0); LYMPHOCYTES #M 1.6 10^3/ul (0.8-2.9); LYMPHOCYTES % (M) 6 % (15-51); METAMYELOCYTES #M 0.2 10^3/ul (0.0-0.0); METAMYELOCYTES %M 1 % (0-0); MICROCYTOSIS 1+ (0-0); MONOCYTE #M 1.9 10^3/ul (0.3-0.9); MONOCYTES % (M) 7 % (0-11); MYELOCYTES #M 0.2 10^3/ul (0.0-0.0); MYELOCYTES % (M) 1 % (0-0); PLASMA CELLS #M 0.2 10^3/ul (0.0-0.0); PLASMAC%(M) 1 % (0); PLATELET ESTIMATE NORMAL; PLATELET MORPHOLOGY COMMENT @See below; POIKILOCYTOSIS 1+ (0-0); POLYCHROMASIA 2+ (0-0); SEG NEUT #M 22.9 10^3/ul (1.6-7.5); SEGMENTED NEUTROPHILS (M) % 80 % (39-77); TARGET CELLS 1+ (0-0)
[2018-12-04] MEDS: PHENYLephrine 80 MG in DEXTROSE 5% 242 ML IV ×3 (09:00→22:06)
[2018-12-04] MEDS ORDERED: PHENYLephrine 20MG IN 250 ML 250 ML IV (09:30)
[2018-12-04] MEDS: HEPARIN 1000 UNITS/ML 10 ML INJ CATHETER (11:17)
[2018-12-04 12:34] LABS: HEMATOCRIT 34.6 % (42.0-52.0); HEMOGLOBIN 9.8 g/dl (14.0-18.0)
[2018-12-04] MEDS: TIGECYCLINE 50 MG in SOD CHLORIDE 0.9% 100 ML IVPB ×2 (13:15→21:41)
[2018-12-04] MEDS: QUETIAPINE 25 MG TAB GTB ×2 (13:15→21:41)
[2018-12-04] MEDS: BALSAM PERU/CASTOR OIL 60 GM TUBE TOP ×2 (13:18→21:41)
[2018-12-04] MEDS: SOD CHLORIDE 0.9% 500 ML (13:26)
[2018-12-04] MEDS: LIDOCAINE 1% (MPF) 5 ML VIAL (13:26)
[2018-12-04] MEDS ORDERED: metroNIDAZOLE 500 MG/NS (PMX) 100 ML IVPB (14:30)
[2018-12-04 18:08] LABS: HEMATOCRIT 32.7 % (42.0-52.0); HEMOGLOBIN 9.2 g/dl (14.0-18.0)
[2018-12-04 18:27] LABS: PTH CALCIUM 9.6 mg/dL (8.6-10.3)
[2018-12-04] MEDS: FLUCONAZOLE 400 MG/NS (PMX) 200 ML IVPB (20:13)
[2018-12-05 00:39] LABS: HEMATOCRIT 31.6 % (42.0-52.0)
[2018-12-05] MEDS: PANTOPRAZOLE IV 80 MG in SOD CHLORIDE 0.9% 100 ML IV ×3 (01:45→23:18)
[2018-12-05] MEDS: ALBUTEROL HFA 8 GM INHALER INH ×4 (02:25→20:38)
[2018-12-05] MEDS: ACETYLCYSTEINE 20% 4 ML VIAL NEB ×4 (02:25→20:39)
[2018-12-05] MEDS: PHENYLephrine 80 MG in DEXTROSE 5% 242 ML IV ×5 (02:45→23:21)
[2018-12-05] MEDS: CEFTAZIDIME 1GM/50 ML (PMX) 50 ML IVPB (05:32)
[2018-12-05 05:46] LABS: HEMATOCRIT 32.5 % (42.0-52.0); HEMOGLOBIN 9.3 g/dl (14.0-18.0)
[2018-12-05] MEDS: metroNIDAZOLE 500 MG/NS (PMX) 100 ML IVPB (05:53)
[2018-12-05 06:34] LABS: ALANINE AMINOTRANSFERASE 41 IU/L (13-69); ALBUMIN 2.5 g/dl (3.3-4.9); ALBUMIN/GLOBULIN RATIO 0.67; ALKALINE PHOSPHATASE 160 IU/L (42-121); ANION GAP 19 (5-13); ASPARTATE AMINO TRANSFERASE 41 IU/L (15-46); BILIRUBIN,INDIRECT 0.1 mg/dl (0-1.1); BILIRUBIN,TOTAL 0.5 mg/dl (0.2-1.3); BLOOD UREA NITROGEN 85 mg/dl (7-20); CALCIUM 8.6 mg/dl (8.4-10.2); CARBON DIOXIDE 22 mmol/L (21-31); CHLORIDE 95 mmol/L (97-110); GLUCOSE 60 mg/dl (70-220); PHOSPHORUS 7.9 mg/dl (2.5-4.9); POTASSIUM 5.1 mmol/L (3.5-5.1); SODIUM 136 mmol/L (135-144); TOTAL PROTEIN 6.2 g/dl (6.1-8.1)
[2018-12-05 06:44] LABS: Estimated GFR 11 mL/min (>60)
[2018-12-05 06:45] LABS: CREATININE 5.94 mg/dl (0.61-1.24)
[2018-12-05] MEDS: IPRATROPIUM (HFA) 12.9 GM INHALER INH ×3 (07:27→20:38)
[2018-12-05] MEDS: QUETIAPINE 25 MG TAB GTB (07:41)
[2018-12-05] MEDS: ACETAMINOPHEN 650MG/20.3ML CUP NGT ×2 (07:41→16:12)
[2018-12-05] MEDS: TIGECYCLINE 50 MG in SOD CHLORIDE 0.9% 100 ML IVPB (07:44)
[2018-12-05] MEDS: NAPHAZOLINE 0.012% 15 ML OPH BOTH EYES ×4 (07:44→21:51)
[2018-12-05] MEDS: BALSAM PERU/CASTOR OIL 60 GM TUBE TOP ×2 (07:44→21:51)
[2018-12-05 08:37] LABS: PTH INTACT 29 pg/mL (14-64)
[2018-12-05 10:04] LABS: ADD MAN DIFF? NO
[2018-12-05 10:08] LABS: WHITE BLOOD COUNT 24.6 10^3/ul (4.8-10.8)
[2018-12-05 10:08] LABS: ABNORMAL IP MESSAGE 1; BASOPHIL # 0.1 10^3/ul (0.0-0.1); BASOPHILS % 0.2 % (0.0-2.0); HEMATOCRIT 30.2 % (42.0-52.0); HEMOGLOBIN 8.4 g/dl (14.0-18.0); LYMPHOCYTES # 2.3 10^3/ul (0.8-2.9); LYMPHOCYTES % 9.3 % (15.0-51.0); MEAN CORPUSCULAR HGB CONC 27.8 g/dl (32.0-37.0); MEAN CORPUSCULAR VOLUME 82.5 fl (82.0-101.0); MEAN PLATELET VOLUME 10.9 fl (7.4-10.4); MONOCYTE # 1.6 10^3/ul (0.3-0.9); MONOCYTES % 6.4 % (0.0-11.0); NEUTROPHILS % 77.5 % (39.0-77.0); NUCLEATED RED BLOOD CELLS # 0.1 10^3/ul (0.0-0.0); NUCLEATED RED BLOOD CELLS% 0.4 /100WBC (0.0-0.0); PLATELET COUNT 249 10^3/UL (140-415); POSITIVE DIFF @See below; RED BLOOD COUNT 3.66 10^6/ul (4.70-6.10)
[2018-12-05 11:41] LABS: ANISOCYTOSIS 2+ (0-0); BAND NEUTROPHILS #M 3.4 10^3/ul (0.0-0.6); BAND NEUTROPHILS % (M) 14 % (0-4); BASOPHIL #M 0.2 10^3/ul (0.0-0.0); BASOPHILS % (M) 1 % (0-2); EOSINOPHILS % (M) 1 % (0-7); GIANT THROMBO% (M) 2 % (0-0); HYPOCHROMASIA 2+ (0-0); LYMPHOCYTES #M 2.2 10^3/ul (0.8-2.9); LYMPHOCYTES % (M) 9 % (15-51); METAMYELOCYTES #M 0.7 10^3/ul (0.0-0.0); METAMYELOCYTES %M 3 % (0-0); MICROCYTOSIS 1+ (0-0); MONOCYTE #M 1.7 10^3/ul (0.3-0.9); MONOCYTES % (M) 7 % (0-11); OVALOCYTES 1+ (0-0); PLATELET ESTIMATE NORMAL; POIKILOCYTOSIS 3+ (0-0); POLYCHROMASIA 2+ (0-0); PROMYELOCYTES #M 0.4 10^3/ul (0-0); PROMYELOCYTES % (M) 2 % (0-0); SEG NEUT #M 16.3 10^3/ul (1.6-7.5); SEGMENTED NEUTROPHILS (M) % 63 % (39-77); TARGET CELLS 1+ (0-0)
[2018-12-05 12:09] LABS: HEMATOCRIT 27.5 % (42.0-52.0); HEMOGLOBIN 7.9 g/dl (14.0-18.0)
[2018-12-05] MEDS: SCOPOLAMINE 1.5 MG PATCH TRANSDERM (12:11)
[2018-12-05] MEDS ORDERED: VANCOMYCIN IV PER PHARMACY XX (13:30)
[2018-12-05] MEDS: NORepinephrine 32 MG in DEXTROSE 5% 218 ML IV (13:47)
[2018-12-05] MEDS: PIPER-TAZO 2.25 GM (PMX) 50 ML IVPB ×2 (14:13→21:51)
[2018-12-05] MEDS: FLUCONAZOLE 100 MG/50 ML (PMX) 50 ML IVPB (14:24)
[2018-12-05] MEDS: VANCOMYCIN HCL 2 GM in SOD CHLORIDE 0.9% 500 ML IVPB (14:24)
[2018-12-05 15:08] LABS: ABNORMAL IP MESSAGE 1; HEMATOCRIT 30.9 % (42.0-52.0); HEMOGLOBIN 8.9 g/dl (14.0-18.0); MEAN CORPUSCULAR HEMOGLOBIN 23.5 pg (29.0-33.0); MEAN CORPUSCULAR HGB CONC 28.8 g/dl (32.0-37.0); MEAN CORPUSCULAR VOLUME 81.5 fl (82.0-101.0); MEAN PLATELET VOLUME 10.6 fl (7.4-10.4); NUCLEATED RED BLOOD CELLS% 0.3 /100WBC (0.0-0.0); PLATELET COUNT 293 10^3/UL (140-415); POSITIVE DIFF @See below; RED BLOOD COUNT 3.79 10^6/ul (4.70-6.10); RED CELL DISTRIBUTION WIDTH 22.5 % (11.5-14.5)
[2018-12-05 15:08] LABS: WHITE BLOOD COUNT 26.7 10^3/ul (4.8-10.8)
[2018-12-05 15:32] LABS: ADD MAN DIFF? YES
[2018-12-05 18:44] LABS: ANISOCYTOSIS 2+ (0-0); BAND NEUTROPHILS % (M) 4 % (0-4); ERYTHROBLAST% (NRBC) (M) 2 % (0-0); GIANT THROMBO% (M) 3 % (0-0); HYPOCHROMASIA 2+ (0-0); LYMPHOCYTES #M 3.7 10^3/ul (0.8-2.9); LYMPHOCYTES % (M) 14 % (15-51); MICROCYTOSIS 1+ (0-0); MONOCYTE #M 0.8 10^3/ul (0.3-0.9); MONOCYTES % (M) 3 % (0-11); MYELOCYTES #M 0.8 10^3/ul (0.0-0.0); MYELOCYTES % (M) 3 % (0-0); OVALOCYTES 1+ (0-0); PLATELET ESTIMATE NORMAL; POIKILOCYTOSIS 1+ (0-0); POLYCHROMASIA 1+ (0-0); SEG NEUT #M 20.6 10^3/ul (1.6-7.5); SEGMENTED NEUTROPHILS (M) % 76 % (39-77); SMUDGE%M 1 % (0-0)
[2018-12-05 19:02] LABS: HEMATOCRIT 26.3 % (42.0-52.0); HEMOGLOBIN 7.4 g/dl (14.0-18.0)
[2018-12-05 20:59] LABS: HEMATOCRIT 32.9 % (42.0-52.0); HEMOGLOBIN 9.2 g/dl (14.0-18.0)
[2018-12-05] MEDS: HEPARIN 5,000 UNIT/1 ML VIAL SC (21:00)
[2018-12-05] MEDS ORDERED: GLUCAGON 1 MG INJ IM (21:30)
[2018-12-05] MEDS ORDERED: DEXTROSE 50% 50 ML SYRINGE IV (21:30)
[2018-12-05] MEDS ORDERED: GLUCOSE GEL 15 GRAM TUBE BUCCAL (21:30)
[2018-12-05] MEDS ORDERED: GLUCOSE GEL 15 GRAM TUBE PO ×2 (21:30)
[2018-12-05] MEDS ORDERED: INSULIN ASPART [NOVOLOG] 3 ML PEN SC (22:30)
[2018-12-05] MEDS: INSULIN ASPART [NOVOLOG] 3 ML PEN SC (23:47)
[2018-12-06] MEDS: DEXTROSE 5%-0.45% NACL 1,000 ML IV (00:40)
[2018-12-06] MEDS: ALBUTEROL HFA 8 GM INHALER INH ×4 (01:32→19:24)
[2018-12-06] MEDS: ACETYLCYSTEINE 20% 4 ML VIAL NEB ×4 (01:35→19:24)
[2018-12-06] MEDS: ACCU-CHEK XX ×3 (01:53→20:31)
[2018-12-06] MEDS: INSULIN ASPART [NOVOLOG] 3 ML PEN SC ×5 (04:00→20:00)
[2018-12-06 04:50] LABS: ADD MAN DIFF? NO
[2018-12-06 04:56] LABS: ABNORMAL IP MESSAGE 1; BASOPHIL # 0.1 10^3/ul (0.0-0.1); BASOPHILS % 0.6 % (0.0-2.0); EOSINOPHILS % 0.1 % (0.0-7.0); HEMATOCRIT 28.1 % (42.0-52.0); HEMOGLOBIN 7.9 g/dl (14.0-18.0); LYMPHOCYTES # 2.5 10^3/ul (0.8-2.9); LYMPHOCYTES % 11.4 % (15.0-51.0); MEAN CORPUSCULAR HEMOGLOBIN 23.6 pg (29.0-33.0); MEAN CORPUSCULAR HGB CONC 28.1 g/dl (32.0-37.0); MEAN CORPUSCULAR VOLUME 83.9 fl (82.0-101.0); MEAN PLATELET VOLUME 10.9 fl (7.4-10.4); MONOCYTE # 1.2 10^3/ul (0.3-0.9); MONOCYTES % 5.5 % (0.0-11.0); NEUTROPHIL # 16.6 10^3/ul (1.6-7.5); NEUTROPHILS % 75.3 % (39.0-77.0); NUCLEATED RED BLOOD CELLS # 0.1 10^3/ul (0.0-0.0); NUCLEATED RED BLOOD CELLS% 0.6 /100WBC (0.0-0.0); PLATELET COUNT 261 10^3/UL (140-415); POSITIVE DIFF @See below; RED BLOOD COUNT 3.35 10^6/ul (4.70-6.10); RED CELL DISTRIBUTION WIDTH 22.5 % (11.5-14.5)
[2018-12-06] MEDS: PIPER-TAZO 2.25 GM (PMX) 50 ML IVPB ×3 (05:10→21:48)
[2018-12-06 05:18] LABS: LACTIC ACID 2.9 mmol/L (0.5-2.0)
[2018-12-06 05:40] LABS: ALANINE AMINOTRANSFERASE 46 IU/L (13-69); ALBUMIN 2.2 g/dl (3.3-4.9); ALBUMIN/GLOBULIN RATIO 0.66; ALKALINE PHOSPHATASE 139 IU/L (42-121); ANION GAP 17 (5-13); ASPARTATE AMINO TRANSFERASE 39 IU/L (15-46); BILIRUBIN,TOTAL 0.4 mg/dl (0.2-1.3); BLOOD UREA NITROGEN 95 mg/dl (7-20); CALCIUM 8.3 mg/dl (8.4-10.2); CARBON DIOXIDE 21 mmol/L (21-31); CHLORIDE 95 mmol/L (97-110); GLUCOSE 79 mg/dl (70-220); PHOSPHORUS 9.3 mg/dl (2.5-4.9); POTASSIUM 5.3 mmol/L (3.5-5.1); SODIUM 133 mmol/L (135-144); TOTAL PROTEIN 5.5 g/dl (6.1-8.1)
[2018-12-06 05:47] LABS: Estimated GFR 9 mL/min (>60)
[2018-12-06 05:54] LABS: CREATININE 6.94 mg/dl (0.61-1.24)
[2018-12-06] MEDS ORDERED: PANTOPRAZOLE 40 MG INJ IV (06:00)
[2018-12-06] MEDS: IPRATROPIUM (HFA) 12.9 GM INHALER INH ×3 (08:11→19:24)
[2018-12-06] MEDS: HEPARIN 5,000 UNIT/1 ML VIAL SC (09:00)
[2018-12-06] MEDS: MULTIVITAMINS 30 ML CUP GTB (09:08)
[2018-12-06] MEDS: ZINC SULFATE 220 MG CAP GTB (09:09)
[2018-12-06] MEDS: FOLIC ACID 1 MG TAB GTB (09:09)
[2018-12-06] MEDS: ASCORBIC ACID 250 MG TAB GTB (09:09)
[2018-12-06] MEDS: BALSAM PERU/CASTOR OIL 60 GM TUBE TOP ×2 (09:10→20:31)
[2018-12-06] MEDS: NAPHAZOLINE 0.012% 15 ML OPH BOTH EYES ×4 (09:10→20:31)
[2018-12-06] MEDS: PHENYLephrine 80 MG in DEXTROSE 5% 242 ML IV ×2 (10:07→17:42)
[2018-12-06] MEDS: PANTOPRAZOLE IV 80 MG in SOD CHLORIDE 0.9% 100 ML IV ×2 (11:39→21:48)
[2018-12-06] MEDS: HEPARIN 1000 UNITS/ML 10 ML INJ CATHETER (12:36)
[2018-12-06] MEDS: FLUCONAZOLE 100 MG/50 ML (PMX) 50 ML IVPB (13:56)
[2018-12-06] MEDS ORDERED: TPN 1,000 ML IV (14:14)
[2018-12-06 14:22] LABS: HEMATOCRIT 28.4 % (42.0-52.0)
[2018-12-06 16:23] LABS: ALANINE AMINOTRANSFERASE 44 IU/L (13-69); ALBUMIN 2.3 g/dl (3.3-4.9); ALBUMIN/GLOBULIN RATIO 0.71; ALKALINE PHOSPHATASE 154 IU/L (42-121); ANION GAP 14 (5-13); ASPARTATE AMINO TRANSFERASE 41 IU/L (15-46); BLOOD UREA NITROGEN 64 mg/dl (7-20); CARBON DIOXIDE 23 mmol/L (21-31); CHLORIDE 97 mmol/L (97-110); GLUCOSE 62 mg/dl (70-220); MAGNESIUM 1.9 mg/dl (1.7-2.5); PHOSPHORUS 6.4 mg/dl (2.5-4.9); POTASSIUM 4.4 mmol/L (3.5-5.1); SODIUM 134 mmol/L (135-144); TOTAL PROTEIN 5.5 g/dl (6.1-8.1); TRIGLYCERIDES 317 mg/dl (0-149)
[2018-12-06 16:28] LABS: Estimated GFR 13 mL/min (>60)
[2018-12-06 16:30] LABS: PREALBUMIN 6.3 mg/dl (17.6-36.0)
[2018-12-06] MEDS: DEXTROSE 50% 50 ML SYRINGE IV (16:36)
[2018-12-07] MEDS: PHENYLephrine 80 MG in DEXTROSE 5% 242 ML IV ×4 (00:10→21:49)
[2018-12-07] MEDS: ACCU-CHEK XX ×7 (00:16→20:48)
[2018-12-07] MEDS: DEXTROSE 5%-0.45% NACL 1,000 ML IV (00:23)
[2018-12-07] MEDS: ALBUTEROL HFA 8 GM INHALER INH ×4 (01:28→19:54)
[2018-12-07] MEDS: ACETYLCYSTEINE 20% 4 ML VIAL NEB ×4 (01:29→19:54)
[2018-12-07] MEDS: NORepinephrine 32 MG in DEXTROSE 5% 218 ML IV (01:34)
[2018-12-07] MEDS: INSULIN ASPART [NOVOLOG] 3 ML PEN SC ×6 (05:00→20:00)
[2018-12-07 05:25] LABS: ADD MAN DIFF? NO
[2018-12-07 05:34] LABS: WHITE BLOOD COUNT 19.6 10^3/ul (4.8-10.8)
[2018-12-07 05:34] LABS: ABNORMAL IP MESSAGE 1; BASOPHIL # 0.1 10^3/ul (0.0-0.1); BASOPHILS % 0.6 % (0.0-2.0); EOSINOPHILS % 0.1 % (0.0-7.0); HEMATOCRIT 28.7 % (42.0-52.0); HEMOGLOBIN 7.9 g/dl (14.0-18.0); LYMPHOCYTES # 2.5 10^3/ul (0.8-2.9); LYMPHOCYTES % 12.6 % (15.0-51.0); MEAN CORPUSCULAR HEMOGLOBIN 23.7 pg (29.0-33.0); MEAN CORPUSCULAR HGB CONC 27.5 g/dl (32.0-37.0); MEAN CORPUSCULAR VOLUME 85.9 fl (82.0-101.0); MEAN PLATELET VOLUME 10.2 fl (7.4-10.4); MONOCYTE # 1.2 10^3/ul (0.3-0.9); MONOCYTES % 6.1 % (0.0-11.0); NEUTROPHIL # 14.2 10^3/ul (1.6-7.5); NEUTROPHILS % 72.5 % (39.0-77.0); NUCLEATED RED BLOOD CELLS # 0.8 10^3/ul (0.0-0.0); NUCLEATED RED BLOOD CELLS% 4.2 /100WBC (0.0-0.0); PLATELET COUNT 266 10^3/UL (140-415); POSITIVE DIFF @See below; RED BLOOD COUNT 3.34 10^6/ul (4.70-6.10); RED CELL DISTRIBUTION WIDTH 23.1 % (11.5-14.5)
[2018-12-07] MEDS: PIPER-TAZO 2.25 GM (PMX) 50 ML IVPB ×3 (06:01→22:27)
[2018-12-07 06:11] LABS: MAGNESIUM 1.9 mg/dl (1.7-2.5)
[2018-12-07 06:11] LABS: PHOSPHORUS 6.4 mg/dl (2.5-4.9)
[2018-12-07 06:12] LABS: VANCOMYCIN,RANDOM 14.6 ug/ml
[2018-12-07 06:13] LABS: ALANINE AMINOTRANSFERASE 35 IU/L (13-69); ALBUMIN 2.3 g/dl (3.3-4.9); ALBUMIN/GLOBULIN RATIO 0.67; ALKALINE PHOSPHATASE 176 IU/L (42-121); ANION GAP 16 (5-13); ASPARTATE AMINO TRANSFERASE 44 IU/L (15-46); BILIRUBIN,TOTAL 0.1 mg/dl (0.2-1.3); BLOOD UREA NITROGEN 68 mg/dl (7-20); CALCIUM 7.9 mg/dl (8.4-10.2); CARBON DIOXIDE 20 mmol/L (21-31); CHLORIDE 97 mmol/L (97-110); GLUCOSE 98 mg/dl (70-220); POTASSIUM 4.7 mmol/L (3.5-5.1); SODIUM 133 mmol/L (135-144); TOTAL PROTEIN 5.7 g/dl (6.1-8.1)
[2018-12-07 06:20] LABS: Estimated GFR 12 mL/min (>60)
[2018-12-07 06:24] LABS: CREATININE 5.47 mg/dl (0.61-1.24)
[2018-12-07] MEDS: IPRATROPIUM (HFA) 12.9 GM INHALER INH ×3 (07:39→19:54)
[2018-12-07] MEDS: PANTOPRAZOLE IV 80 MG in SOD CHLORIDE 0.9% 100 ML IV (08:23)
[2018-12-07] MEDS: FOLIC ACID 1 MG TAB GTB (08:23)
[2018-12-07] MEDS: ASCORBIC ACID 250 MG TAB GTB (08:23)
[2018-12-07] MEDS: ZINC SULFATE 220 MG CAP GTB (08:23)
[2018-12-07] MEDS: NAPHAZOLINE 0.012% 15 ML OPH BOTH EYES ×4 (08:24→20:47)
[2018-12-07] MEDS: BALSAM PERU/CASTOR OIL 60 GM TUBE TOP ×2 (08:24→20:48)
[2018-12-07] MEDS: MULTIVITAMINS 30 ML CUP GTB (08:24)
[2018-12-07] MEDS: FLUCONAZOLE 100 MG/50 ML (PMX) 50 ML IVPB (13:36)
[2018-12-07] MEDS: VANCOMYCIN HCL 1.25 GM in SOD CHLORIDE 0.9% 250 ML IVPB (13:57)
[2018-12-07] MEDS: TPN 1,000 ML IV (16:33)
[2018-12-07] MEDS: PANTOPRAZOLE 40 MG INJ IV (17:13)
[2018-12-07] MEDS: LORAZEPAM 2 MG INJ IV (20:43)
[2018-12-08] MEDS: ACCU-CHEK XX ×7 (00:28→22:00)
[2018-12-08] MEDS: ACETAMINOPHEN 650MG/20.3ML CUP NGT ×2 (00:40→12:02)
[2018-12-08] MEDS: METOCLOPRAMIDE 10 MG INJ IV ×4 (00:40→22:05)
[2018-12-08] MEDS: ALBUTEROL HFA 8 GM INHALER INH ×4 (01:32→20:34)
[2018-12-08] MEDS: ACETYLCYSTEINE 20% 4 ML VIAL NEB ×4 (01:32→20:34)
[2018-12-08 02:39] LABS: AADO2 Arterial 156.4 mmHg (7.0-24.0); Allen Test ACCEPTAB; Arterial Base Excess -4.6 mmol/L (-3.0-3); Arterial Blood Gas Oxygen Sat 93.4 mmHG (95.0-98.0); Arterial COHb 0.3 % (0.0-3.0); Arterial Fraction of Oxyhgb 92.7 % (93.0-99.0); Arterial MetHb 0.4 % (0.0-1.5); Arterial pCO2 40.8 mmhg (35-45); MODE VENT - AC; Site Right Radial
[2018-12-08] MEDS: INSULIN ASPART [NOVOLOG] 3 ML PEN SC ×7 (04:00→23:59)
[2018-12-08] MEDS: PHENYLephrine 80 MG in DEXTROSE 5% 242 ML IV ×5 (04:01→22:27)
[2018-12-08 04:59] LABS: ADD MAN DIFF? NO
[2018-12-08 05:01] LABS: WHITE BLOOD COUNT 18.8 10^3/ul (4.8-10.8)
[2018-12-08 05:01] LABS: ABNORMAL IP MESSAGE 1; BASOPHIL # 0.1 10^3/ul (0.0-0.1); BASOPHILS % 0.7 % (0.0-2.0); EOSINOPHILS % 0.2 % (0.0-7.0); HEMATOCRIT 29.5 % (42.0-52.0); HEMOGLOBIN 7.7 g/dl (14.0-18.0); LYMPHOCYTES # 3.3 10^3/ul (0.8-2.9); LYMPHOCYTES % 17.5 % (15.0-51.0); MEAN CORPUSCULAR HEMOGLOBIN 24.1 pg (29.0-33.0); MEAN CORPUSCULAR HGB CONC 26.1 g/dl (32.0-37.0); MEAN CORPUSCULAR VOLUME 92.2 fl (82.0-101.0); MEAN PLATELET VOLUME 10.4 fl (7.4-10.4); MONOCYTE # 1.4 10^3/ul (0.3-0.9); MONOCYTES % 7.2 % (0.0-11.0); NEUTROPHIL # 11.9 10^3/ul (1.6-7.5); NEUTROPHILS % 63.3 % (39.0-77.0); NUCLEATED RED BLOOD CELLS # 4.7 10^3/ul (0.0-0.0); PLATELET COUNT 277 10^3/UL (140-415); POSITIVE DIFF @See below; RED CELL DISTRIBUTION WIDTH 22.4 % (11.5-14.5)
[2018-12-08] MEDS: PANTOPRAZOLE 40 MG INJ IV ×2 (05:16→18:59)
[2018-12-08] MEDS: PIPER-TAZO 2.25 GM (PMX) 50 ML IVPB (05:16)
[2018-12-08 05:25] LABS: ALANINE AMINOTRANSFERASE 44 IU/L (13-69); ALBUMIN 2.2 g/dl (3.3-4.9); ALBUMIN/GLOBULIN RATIO 0.68; ALKALINE PHOSPHATASE 197 IU/L (42-121); ANION GAP 18 (5-13); ASPARTATE AMINO TRANSFERASE 39 IU/L (15-46); BILIRUBIN,TOTAL 0.4 mg/dl (0.2-1.3); BLOOD UREA NITROGEN 68 mg/dl (7-20); CALCIUM 8.1 mg/dl (8.4-10.2); CARBON DIOXIDE 21 mmol/L (21-31); CHLORIDE 94 mmol/L (97-110); GLUCOSE 119 mg/dl (70-220); POTASSIUM 4.4 mmol/L (3.5-5.1); SODIUM 133 mmol/L (135-144); TOTAL PROTEIN 5.4 g/dl (6.1-8.1)
[2018-12-08 05:27] LABS: MAGNESIUM 2.1 mg/dl (1.7-2.5)
[2018-12-08 05:27] LABS: PHOSPHORUS 5.1 mg/dl (2.5-4.9)
[2018-12-08 05:32] LABS: Estimated GFR 9 mL/min (>60)
[2018-12-08 05:37] LABS: CREATININE 6.77 mg/dl (0.61-1.24)
[2018-12-08 07:31] LABS: ANISOCYTOSIS 2+ (0-0); BAND NEUTROPHILS #M 3.3 10^3/ul (0.0-0.6); BAND NEUTROPHILS % (M) 18 % (0-4); EOSINOPHILS % (M) 1 % (0-7); ERYTHROBLAST% (NRBC) (M) 30 % (0-0); HYPOCHROMASIA 2+ (0-0); LYMPHOCYTES #M 6.7 10^3/ul (0.8-2.9); LYMPHOCYTES % (M) 36 % (15-51); MICROCYTOSIS 1+ (0-0); MONOCYTE #M 0.7 10^3/ul (0.3-0.9); MONOCYTES % (M) 4 % (0-11); MYELOCYTES #M 0.5 10^3/ul (0.0-0.0); MYELOCYTES % (M) 3 % (0-0); PLATELET ESTIMATE NORMAL; POIKILOCYTOSIS 2+ (0-0); POLYCHROMASIA 1+ (0-0); PROMYELOCYTES #M 0.5 10^3/ul (0-0); PROMYELOCYTES % (M) 3 % (0-0); SEG NEUT #M 7.2 10^3/ul (1.6-7.5); SEGMENTED NEUTROPHILS (M) % 35 % (39-77); SMUDGE%M 10 % (0-0); TARGET CELLS 1+ (0-0)
[2018-12-08] MEDS: IPRATROPIUM (HFA) 12.9 GM INHALER INH ×3 (08:22→20:34)
[2018-12-08] MEDS: MIDAZOLAM (DRIP) 50 mg/50 mL 50 ML IV ×2 (08:34→21:12)
[2018-12-08] MEDS: ASCORBIC ACID 250 MG TAB GTB (08:51)
[2018-12-08] MEDS: ZINC SULFATE 220 MG CAP GTB (08:51)
[2018-12-08] MEDS: FOLIC ACID 1 MG TAB GTB (08:51)
[2018-12-08] MEDS: NAPHAZOLINE 0.012% 15 ML OPH BOTH EYES ×4 (08:52→20:56)
[2018-12-08] MEDS: BALSAM PERU/CASTOR OIL 60 GM TUBE TOP ×2 (08:52→23:05)
[2018-12-08 11:56] LABS: IMMEDIATE SPIN CROSSMATCH 1 2
[2018-12-08] MEDS ORDERED: MEROPENEM 500MG/50 ML (PMX) 50 ML IVPB (12:00)
[2018-12-08] MEDS: SCOPOLAMINE 1.5 MG PATCH TRANSDERM (12:02)
[2018-12-08 12:45] LABS: AMMONIA 13 umol/l (9-30)
[2018-12-08] MEDS: TPN 1,000 ML IV (12:57)
[2018-12-08 12:58] LABS: LACTIC ACID 2.7 mmol/L (0.5-2.0)
[2018-12-08] MEDS: FENTAnyl (DRIP) 1000 mcg/100mL 100 ML IV (13:18)
[2018-12-08] MEDS: HEPARIN 1000 UNITS/ML 10 ML INJ CATHETER (13:46)
[2018-12-08] MEDS: FLUCONAZOLE 100 MG/50 ML (PMX) 50 ML IVPB (14:22)
[2018-12-08] MEDS: CEFTAZIDIME 1GM/50 ML (PMX) 50 ML IVPB (16:41)
[2018-12-08] MEDS ORDERED: COLISTIMETHATE (25 MG/ML INHAL SYG) NEB (20:00)
[2018-12-08] MEDS: LINEZOLID 600 MG/D5W (PMX) 300 ML IVPB (20:56)
[2018-12-09] MEDS: ALBUTEROL HFA 8 GM INHALER INH ×4 (01:20→20:00)
[2018-12-09] MEDS: ACETYLCYSTEINE 20% 4 ML VIAL NEB ×4 (01:20→20:00)
[2018-12-09] MEDS: ACCU-CHEK XX ×7 (01:23→21:00)
[2018-12-09] MEDS: NORepinephrine 32 MG in DEXTROSE 5% 218 ML IV (03:07)
[2018-12-09] MEDS: PHENYLephrine 80 MG in DEXTROSE 5% 242 ML IV ×6 (03:19→23:57)
[2018-12-09] MEDS: MIDAZOLAM (DRIP) 50 mg/50 mL 50 ML IV ×2 (03:22→15:18)
[2018-12-09] MEDS: INSULIN ASPART [NOVOLOG] 3 ML PEN SC ×6 (04:00→23:48)
[2018-12-09] MEDS: LORAZEPAM 2 MG INJ IV (04:40)
[2018-12-09 04:59] LABS: ADD MAN DIFF? NO
[2018-12-09 05:13] LABS: ABNORMAL IP MESSAGE 1; BASOPHIL # 0.1 10^3/ul (0.0-0.1); BASOPHILS % 0.4 % (0.0-2.0); EOSINOPHILS % 0.1 % (0.0-7.0); HEMATOCRIT 29.7 % (42.0-52.0); HEMOGLOBIN 7.7 g/dl (14.0-18.0); LYMPHOCYTES # 3.4 10^3/ul (0.8-2.9); LYMPHOCYTES % 26.1 % (15.0-51.0); MEAN CORPUSCULAR HEMOGLOBIN 24.3 pg (29.0-33.0); MEAN CORPUSCULAR HGB CONC 25.9 g/dl (32.0-37.0); MEAN CORPUSCULAR VOLUME 93.7 fl (82.0-101.0); MEAN PLATELET VOLUME 11.6 fl (7.4-10.4); MONOCYTES % 7.4 % (0.0-11.0); NEUTROPHIL # 7.7 10^3/ul (1.6-7.5); NEUTROPHILS % 59.3 % (39.0-77.0); NUCLEATED RED BLOOD CELLS # 7.5 10^3/ul (0.0-0.0); NUCLEATED RED BLOOD CELLS% 57.4 /100WBC (0.0-0.0); PLATELET COUNT 208 10^3/UL (140-415); POSITIVE DIFF @See below; RED BLOOD COUNT 3.17 10^6/ul (4.70-6.10); RED CELL DISTRIBUTION WIDTH 21.2 % (11.5-14.5)
[2018-12-09] MEDS: METOCLOPRAMIDE 10 MG INJ IV ×2 (05:14→14:36)
[2018-12-09] MEDS: PANTOPRAZOLE 40 MG INJ IV ×2 (05:14→18:13)
[2018-12-09 07:16] LABS: ANION GAP 18 (5-13); BLOOD UREA NITROGEN 53 mg/dl (7-20); CALCIUM 8.6 mg/dl (8.4-10.2); CARBON DIOXIDE 18 mmol/L (21-31); CHLORIDE 97 mmol/L (97-110); GLUCOSE 93 mg/dl (70-220); MAGNESIUM 2.1 mg/dl (1.7-2.5); PHOSPHORUS 3.9 mg/dl (2.5-4.9); POTASSIUM 4.2 mmol/L (3.5-5.1); SODIUM 133 mmol/L (135-144)
[2018-12-09 07:22] LABS: Estimated GFR 12 mL/min (>60)
[2018-12-09 07:28] LABS: CREATININE 5.48 mg/dl (0.61-1.24)
[2018-12-09] MEDS: IPRATROPIUM (HFA) 12.9 GM INHALER INH ×3 (08:00→20:00)
[2018-12-09] MEDS: TPN 1,000 ML IV (08:17)
[2018-12-09 09:03] LABS: AADO2 Arterial 173.5 mmHg (7.0-24.0); Allen Test ACCEPTAB; Arterial Base Excess -11.4 mmol/L (-3.0-3); Arterial Blood Gas Oxygen Sat 88.6 mmHG (95.0-98.0); Arterial COHb 0.3 % (0.0-3.0); Arterial Fraction of Oxyhgb 88.1 % (93.0-99.0); Arterial HCO3 15.8 mmol/L (22.0-26.0); Arterial MetHb 0.3 % (0.0-1.5); Arterial pCO2 40.2 mmhg (35-45); MODE VENT - AC; Site Right Radial
[2018-12-09] MEDS: FENTAnyl (DRIP) 1000 mcg/100mL 100 ML IV (10:02)
[2018-12-09] MEDS: NAPHAZOLINE 0.012% 15 ML OPH BOTH EYES ×4 (10:02→21:41)
[2018-12-09] MEDS: ASCORBIC ACID 250 MG TAB GTB (10:05)
[2018-12-09] MEDS: ZINC SULFATE 220 MG CAP GTB (10:05)
[2018-12-09] MEDS: LINEZOLID 600 MG/D5W (PMX) 300 ML IVPB ×2 (10:05→21:40)
[2018-12-09] MEDS: FOLIC ACID 1 MG TAB GTB (10:05)
[2018-12-09] MEDS: BALSAM PERU/CASTOR OIL 60 GM TUBE TOP ×2 (10:06→21:00)
[2018-12-09] MEDS: ACETAMINOPHEN 650MG/20.3ML CUP NGT ×3 (10:20→18:43)
[2018-12-09 10:34] LABS: HEMATOCRIT 32.7 % (42.0-52.0); HEMOGLOBIN 8.3 g/dl (14.0-18.0)
[2018-12-09] MEDS: NA BICARBONATE 8.4% 50 ML SYG IV ×3 (10:36→22:32)
[2018-12-09] MEDS: SODIUM BICARBONATE (IV ADD) 150 MEQ in DEXTROSE 5% 850 ML IV (13:11)
[2018-12-09] MEDS: FLUCONAZOLE 100 MG/50 ML (PMX) 50 ML IVPB (14:54)
[2018-12-09] MEDS: IBUPROFEN 600 MG TAB PO ×2 (15:34→22:57)
[2018-12-09] MEDS: CEFTAZIDIME 1GM/50 ML (PMX) 50 ML IVPB (15:57)
[2018-12-09 16:04] LABS: LACTIC ACID 11.1 mmol/L (0.5-2.0)
[2018-12-09] MEDS: ALBUMIN HUMAN 25% 100 ML IV (20:28)
[2018-12-09] MEDS: VASOPRESSIN 60 UNIT in DEXTROSE 5% 57 ML IV (20:45)
[2018-12-09] MEDS: DOPamine-D5W 1.6 MG/ML 250 ML IV ×2 (21:26→22:32)
[2018-12-09 22:23] LABS: AADO2 Arterial 581.8 mmHg (7.0-24.0); Allen Test ACCEPTAB; Arterial Base Excess -20.9 mmol/L (-3.0-3); Arterial Blood Gas Oxygen Sat 88.8 mmHG (95.0-98.0); Arterial COHb 0.3 % (0.0-3.0); Arterial Fraction of Oxyhgb 88.1 % (93.0-99.0); Arterial HCO3 10.5 mmol/L (22.0-26.0); Arterial MetHb 0.5 % (0.0-1.5); Arterial pCO2 50.1 mmhg (35-45); MODE VENT - AC; Site Right Radial
[2018-12-10] MEDS ORDERED: NA BICARBONATE 8.4% 50 ML SYG
[2018-12-10] MEDS ORDERED: DEXTROSE 50% 50 ML SYRINGE
[2018-12-10] MEDS ORDERED: EPINEPHrine 0.1 MG/ML SYG
[2018-12-10] MEDS ORDERED: CA CHLORIDE 10% 10 ML SYRINGE
[2018-12-10] MEDS: METOCLOPRAMIDE 10 MG INJ IV (00:05)
[2018-12-10 00:10] LABS: AADO2 Arterial 593.4 mmHg (7.0-24.0); Allen Test ACCEPTAB; Arterial Base Excess -20.2 mmol/L (-3.0-3); Arterial Blood Gas Oxygen Sat 86.1 mmHG (95.0-98.0); Arterial COHb 0.3 % (0.0-3.0); Arterial Fraction of Oxyhgb 85.3 % (93.0-99.0); Arterial HCO3 10.6 mmol/L (22.0-26.0); Arterial MetHb 0.6 % (0.0-1.5); Arterial pCO2 47.9 mmhg (35-45); MODE VENT - AC; Site Right Radial
[2018-12-10] MEDS: DOPamine-D5W 1.6 MG/ML 250 ML IV (00:13)
[2018-12-10] MEDS: NA BICARBONATE 8.4% 50 ML SYG IV (00:43)
[2018-12-10] MEDS: ACCU-CHEK XX (01:00)
[2018-12-10] MEDS: TPN 1,000 ML IV (01:02)
[2018-12-10] MEDS: ACETAMINOPHEN 1000MG/100ML IV 100 ML IVPB (01:12)
[2018-12-10] MEDS: ALBUTEROL HFA 8 GM INHALER INH (02:00)
[2018-12-10] MEDS: ACETYLCYSTEINE 20% 4 ML VIAL NEB (02:00)
[2018-12-10] MEDS ORDERED: EPINEPHrine 1 MG INJ (02:01)
[2018-12-10] MEDS ORDERED: EPINEPHrine 4 MG in DEXTROSE 5% 246 ML IV (02:15)
== END 2018-12-10 02:32 | disposition expired | DRG 4 ==
LOC: E/R 14:16 → ICU 17:18
PROC: 05HY33Z Insertion of Infusion Device into Upper Vein, Percutaneous Approach (ICD-10-PCS; principal; 2018-11-15 13:00)
PROC: 0B110F4 Bypass Trachea to Cutaneous with Tracheostomy Device, Open Approach (ICD-10-PCS; 2018-11-15 13:00)
PROC: 5A1955Z Respiratory Ventilation, Greater than 96 Consecutive Hours (ICD-10-PCS; 2018-11-15 13:00)
PROC: 0BH17EZ Insertion of Endotracheal Airway into Trachea, Via Natural or Artificial Opening (ICD-10-PCS; 2018-11-15 13:00)
PROC: 0DH63UZ Insertion of Feeding Device into Stomach, Percutaneous Approach (ICD-10-PCS; 2018-11-15 13:00)
PROC: 05PYX3Z Removal of Infusion Device from Upper Vein, External Approach (ICD-10-PCS; 2018-11-15 13:00)
PROC: 02HV33Z Insertion of Infusion Device into Superior Vena Cava, Percutaneous Approach (ICD-10-PCS; 2018-11-15 13:00)
PROC: 5A1D70Z Performance of Urinary Filtration, Intermittent, Less than 6 Hours Per Day (ICD-10-PCS; 2018-11-15 13:00)
PROC: 06HY33Z Insertion of Infusion Device into Lower Vein, Percutaneous Approach (ICD-10-PCS; 2018-11-15 13:00)
PROC: 0DP6XUZ Removal of Feeding Device from Stomach, External Approach (ICD-10-PCS; 2018-11-15 13:00)
PROC: 0DJ08ZZ Inspection of Upper Intestinal Tract, Via Natural or Artificial Opening Endoscopic (ICD-10-PCS; 2018-11-15 13:00)
PROC: 0W9F30Z Drainage of Abdominal Wall with Drainage Device, Percutaneous Approach (ICD-10-PCS; 2018-11-15 13:00)
DX: A41.9 Sepsis, unspecified organism (principal); T80.211A Bloodstream infection due to central venous catheter, initial encounter; J96.02 Acute respiratory failure with hypercapnia; J96.01 Acute respiratory failure with hypoxia; J15.6 Pneumonia due to other Gram-negative bacteria; G92 Toxic encephalopathy; R65.21 Severe sepsis with septic shock; K22.11 Ulcer of esophagus with bleeding; Z68.43 Body mass index [BMI] 50.0-59.9, adult; E66.2 Morbid (severe) obesity with alveolar hypoventilation; I50.30 Unspecified diastolic (congestive) heart failure; K52.1 Toxic gastroenteritis and colitis; N17.9 Acute kidney failure, unspecified; K56.609 Unspecified intestinal obstruction, unspecified as to partial versus complete obstruction; T85.528A Displacement of other gastrointestinal prosthetic devices, implants and grafts, initial encounter; B37.81 Candidal esophagitis; B37.49 Other urogenital candidiasis; L02.211 Cutaneous abscess of abdominal wall; R65.20 Severe sepsis without septic shock; J44.9 Chronic obstructive pulmonary disease, unspecified; B36.9 Superficial mycosis, unspecified; I87.2 Venous insufficiency (chronic) (peripheral); E83.52 Hypercalcemia; Y84.8 Other medical procedures as the cause of abnormal reaction of the patient, or of later complication, without mention of misadventure at the time of the procedure; Y83.2 Surgical operation with anastomosis, bypass or graft as the cause of abnormal reaction of the patient, or of later complication, without mention of misadventure at the time of the procedure; R63.3 Feeding difficulties; D64.9 Anemia, unspecified; T36.95XA Adverse effect of unspecified systemic antibiotic, initial encounter; Z16.24 Resistance to multiple antibiotics; Z87.891 Personal history of nicotine dependence
CPT/HCPCS: 31500; 36430; 36600; 71045; 74018; 74250; 76700; 76705; 76775; 76937; 76942; 80048; 80053; 80061; 80202; 81001; 81003; 82140; 82150; 82533; 82550; 82553; 82570; 82803; 82962; 83036; 83605; 83690; 83735; 83970; 84100; 84134; 84300; 84478; 84484; 85014; 85018; 85025; 85610; 85730; 86704; 86706; 86803; 86850; 86900; 86901; 86920; 87040; 87045; 87070; 87075; 87081; 87086; 87340; 87400; 87449; 89220; 90935; 92950; 93005; 93306; 93970; 94002; 94003; 94640; 94644; 94660; 94664; 94770; 96365; 96375; 97110; 97163; 99291-25